=== PATIENT | male | born 1945 | race Caucasian/White ===

== ENCOUNTER 2017-07-30 14:33 | Emergency (ER) | payer MEDICARE, OTHER ==
[2017-07-30] MEDS ORDERED: ASPIRIN 81 MG TABLET, CHEWABLE PO ONE (14:46)
[2017-07-30 15:26] LABS: ABSOLUTE EOSINOPHILS # (AUTO) 0.2 10^3/uL (0.0-0.6); ABSOLUTE LYMPHOCYTES (AUTO) 2.6 10^3/uL (0.5-4.7); ABSOLUTE MONOCYTES (AUTO) 0.7 10^3/uL (0.1-1.4); ABSOLUTE NEUT (AUTO) 6.5 10^3/uL (1.7-8.2); BASOPHILS % (AUTO) 0.3 % (0-2); EOSINOPHILS % (AUTO) 1.7 % (0-6); HEMATOCRIT 51.1 % (37.9-51.0); HEMOGLOBIN 17.1 g/dL (13.5-17.0); LYMPHOCYTES % (AUTO) 26.3 % (13-45); MEAN CORPUSCULAR HEMOGLOBIN 30.6 pg (27.0-33.4); MEAN CORPUSCULAR HGB CONC 33.4 g/dL (32.0-36.0); MEAN CORPUSCULAR VOLUME 92 fl (80-97); MONOCYTES % (AUTO) 7.1 % (3-13); PLATELET COUNT 352 10^3/uL (150-450); RED BLOOD COUNT 5.59 10^6/uL (4.35-5.55); RED CELL DISTRIBUTION WIDTH 14.8 % (11.5-14.0); SEGMENTED NEUTROPHILS % (AUTO) 64.6 % (42-78); TOTAL CELLS COUNTED % (AUTO) 100 %; WHITE BLOOD COUNT 10.1 10^3/uL (4.0-10.5)
--- NOTE | 2017-07-30 15:36 | RADIOLOGY REPORT (SQ) ---
EXAM DESCRIPTION: CHEST SINGLE VIEW COMPLETED DATE/TIME: 07/30/2017 3:14 pm REASON FOR STUDY: cp COMPARISON: May 2015 EXAM PARAMETERS: NUMBER OF VIEWS: One view. TECHNIQUE: Single frontal radiographic view of the chest acquired. RADIATION DOSE: NA LIMITATIONS: None. FINDINGS: LUNGS AND PLEURA: No opacities, masses or pneumothorax. No pleural effusion. MEDIASTINUM AND HILAR STRUCTURES: No masses. Contour normal. HEART AND VASCULAR STRUCTURES: Heart normal in size. Normal vasculature. BONES: No acute findings. HARDWARE: None in the chest. OTHER: No other significant finding. IMPRESSION: NO ACUTE RADIOGRAPHIC FINDING IN THE CHEST. TECHNICAL DOCUMENTATION: JOB ID: [id number] [employer]- All Rights Reserved
[2017-07-30 15:40] LABS: ALANINE AMINOTRANSFERASE 25 U/L (21-72); ALBUMIN 4.5 g/dL (3.5-5.0); ALKALINE PHOSPHATASE 121 U/L (38-126); ASPARTATE AMINO TRANSFERASE 25 U/L (17-59); BILIRUBIN,DIRECT 0.3 mg/dL (0.0-0.4); BILIRUBIN,TOTAL 0.5 mg/dL (0.2-1.3); BLOOD UREA NITROGEN 18 mg/dL (7-20); CALCIUM 9.6 mg/dL (8.4-10.2); CARBON DIOXIDE 22 mmol/L (22-30); CREATINE KINASE 75 U/L (55-170); GLUCOSE 69 mg/dL (75-110); POTASSIUM 4.3 mmol/L (3.6-5.0); TOTAL PROTEIN 7.2 g/dL (6.3-8.2)
--- NOTE | 2017-07-30 15:47 | ER Document Report ---
ED General - General Chief Complaint: Chest Pain Stated Complaint: CHEST PAIN Time Seen by Provider: 07/30/17 15:46 Notes: 71-year-old male past medical history alcohol abuse and coronary disease here with complaints of lower midsternal chest pain constant worse with torso movement and sitting upright ongoing for the past 2 days. He states he has had "a little bit of shortness of breath with it". Denies nausea vomiting lightheadedness diaphoresis. Has a prior history of cardiac stent placement in [facility]. He denies any trauma to the chest. TRAVEL OUTSIDE OF THE [place] IN LAST 30 DAYS: No - Related Data Allergies/Adverse Reactions: No Known Allergies Allergy (Verified 04/17/15 17:10) Past Medical History - Social History Smoking Status: Former Smoker Frequency of alcohol use: Heavy Drug Abuse: None Family History: Reviewed & Not Pertinent Patient has suicidal ideation: No Patient has homicidal ideation: No - Past Medical History Cardiac Medical History: Reports: Hx Atrial Fibrillation, Hx Congestive Heart Failure, Hx Coronary Artery Disease, Hx Heart Attack, Hx Hypertension Pulmonary Medical History: Reports: Hx COPD Endocrine Medical History: Reports: Hx Diabetes Mellitus Type 2 Renal/ Medical History: Denies: Hx Peritoneal Dialysis Psychiatric Medical History: Reports: Hx Depression, Hx Post Traumatic Stress Disorder Past Surgical History: Reports: Hx Cardiac Catheterization - stents, Hx Coronary Stent, Hx Orthopedic Surgery, Hx Pacemaker - event monitor w/ defibrillator - Immunizations Hx Diphtheria, Pertussis, Tetanus Vaccination: Yes Review of Systems - Review of Systems Notes: See history of present illness for pertinent positive review of systems; otherwise all review of systems have been reviewed and are negative Physical Exam - Vital signs Vitals: Resp Pulse Ox 18 95 07/30/17 14:58 07/30/17 14:58 - Notes Notes: PHYSICAL EXAMINATION: GENERAL: Well-appearing and in no acute distress. HEAD: Atraumatic, normocephalic. EYES: Pupils equal round and reactive to light, extraocular movements intact, sclera anicteric, conjunctiva are normal. ENT: nares patent, oropharynx clear without exudates. Moist mucous membranes. NECK: Normal range of motion, supple without lymphadenopathy LUNGS: CTAB and equal. No wheezes rales or rhonchi. HEART: Regular rate (92-97) and rhythm without murmurs; reproducible moderate tenderness to palpation of the right inferior parasternal border with light palpation (patient states that this is the pain he has been having past 2 days) ABDOMEN: Soft, no tenderness. No guarding, no rebound EXTREMITIES: Normal range of motion, no pitting edema. No cyanosis. NEUROLOGICAL: Cranial nerves grossly intact. Normal sensory/motor exams. PSYCH: Normal mood, normal affect. SKIN: Warm, Dry, normal turgor, no rashes or lesions noted Course - Re-evaluation Re-evalutation: 07/30/17 15:46 EKG my interpretation rate tachycardic rhythm reg No appreciable ST elevation or depression Normal AK QRS QT No prior EKG available 07/30/17 16:04 MEDICAL DECISION MAKING: Concern for costochondritis versus pneumothorax Lower likelihood and clinical suspicion for ACS/PE given history and exam Will obtain workup and go from there Since his pain has been constant for the past 2 days, single troponin should be sufficient Patient understands and agrees to the plan of care 07/30/17 16:50 Results reviewed there is no leukocytosis troponin is negative after 2 days of pain Chest x-ray no acute emergent findings Patient states his pain has significantly improved after ketorolac We will send him home with prescription for Pepcid and meloxicam I feel this is likely musculoskeletal; HR 88 O2 95% Instructed follow-up PCP next day or few and he understands agrees plan of care - Vital Signs Vital signs: Temp Pulse Resp BP Pulse Ox 16 122/79 95 07/30/17 15:00 07/30/17 15:00 07/30/17 15:00 - Laboratory Result Diagrams: 07/30/17 15:05 07/30/17 15:05 Laboratory results interpreted by me: 07/30/17 07/30/17 15:05 15:05 RBC 5.59 H Hgb 17.1 H Hct 51.1 H RDW 14.8 H Sodium 145.6 H Anion Gap 23 H Glucose 69 L Discharge - Discharge Clinical Impression: Chest wall pain Condition: Good Disposition: HOME, SELF-CARE Additional Instructions: Your heart test was negative. Use the prescribed medication as needed for pain. The Pepcid is for ulcers and stomach acid. You were seen in the emergency department at [facility]. If you were given any sedating medications, be sure not to operate heavy machinery (example - driving ) and be sure you are not too sedated to walk appropriately. Please followup with your primary physician in the next few days for further management/ evaluation. Please return to the emergency department for worsening of symptoms or any symptom that you deem to be concerning or life-threatening. Thank you for allowing us to be part of your care. Prescriptions: Famotidine [Pepcid 20 mg Tablet] 20 mg PO DAILY #12 tablet Meloxicam [Mobic] 15 mg PO DAILY #7 tablet
[2017-07-30 15:50] LABS: CHLORIDE 101 mmol/L (98-107); SODIUM 145.6 mmol/L (137-145)
[2017-07-30 15:54] LABS: ANION GAP 23 (5-19)
[2017-07-30 16:02] LABS: CREATINE KINASE MB 1.04 ng/mL (<4.55)
[2017-07-30] MEDS ORDERED: KETOROLAC TROMETHAMINE INJ/PF 30 MG/1 ML SDV IV ONE (16:02)
[2017-07-30 16:04] LABS: TROPONIN I < 0.012 ng/mL
[2017-07-30 17:06] VITALS: BP 125/74
--- NOTE | 2017-07-30 19:09 | EKG REPORT ---
SEVERITY:- BORDERLINE ECG - SINUS TACHYCARDIA BORDERLINE LEFT AXIS DEVIATION BORDERLINE PROLONGED QT INTERVAL : Confirmed by: Estuardo Riddle MD 30-Jul-2017 19:07:59
== END 2017-07-30 17:06 | disposition home or self-care (01) ==
LOC: ER 14:33
DX: R07.89 Other chest pain (principal); I48.91 Unspecified atrial fibrillation; I50.9 Heart failure, unspecified; I11.0 Hypertensive heart disease with heart failure; E11.9 Type 2 diabetes mellitus without complications; Z87.891 Personal history of nicotine dependence; Z95.810 Presence of automatic (implantable) cardiac defibrillator
CPT/HCPCS: 93005; 99285; 96374; 36415; 82553; 82550; 85025; 80053; 84484; 71045; 93010; J1885

== ENCOUNTER 2017-10-15 11:42 | Day surgery (SDC) | payer MEDICARE, OTHER ==
[~2017-10-15 11:42] MED LIST: CHONDR SU A NA/HYALUR INTRAOC KIT (SURGICARE) ONE; EPINEPHRINE INJ/PF 1 MG/1 ML AMPULE ONE; KETOROLAC TROMETHAMINE 0.45% 4 DROP/0.4 ML DROPERETTE OS PRN; LIDOCAINE 1% INJ-PF (10 MG/ML) 30 ML SDV ONE
[2017-10-15] MEDS: TETRACAINE HCL 0.5% OPH SOLN 2 ML OS PRN ×3 (12:05→12:47)
[2017-10-15] MEDS: TROPICAMIDE 1% OPH SOLN 3 ML OS PRN ×3 (12:06→12:25)
[2017-10-15] MEDS: CYCLOPENTOLATE 0.2%/PHENYLEPHRINE 1% OPH SOLN 2 ML OS PRN ×3 (12:06→12:25)
[2017-10-15] MEDS: BESIFLOXACIN HCL 0.6% OPH SUSP 5 ML BOTTLE OS PRN ×4 (12:07→13:11)
[2017-10-15] MEDS ORDERED: MIDAZOLAM 2 MG/2 ML INJ ONE (12:17)
--- NOTE | 2017-10-15 22:09 | [facility] OPERATIVE REPORT E ---
[facility] Operative Report NAME: VANGIE MENDOZA AGE: 72Y DATE OF SURGERY: 10/15/2017 ROOM: PREOPERATIVE DIAGNOSIS: CATARACT, LEFT EYE. POSTOPERATIVE DIAGNOSIS: CATARACT, LEFT EYE. OPERATION: Cataract extraction with ReSTOR toric intraocular lens implant of the left eye. SURGEON: SORAIDA TAVAREZ M.D. ANESTHESIA: Topical. PROCEDURE: After obtaining appropriate consent, the patient's left eye was prepped and draped in sterile fashion as well as the surgeon in a sterile manner and cataract surgery was started. First a paracentesis blade was used to make a small side-port incision. Viscoelastic was used to inflate the anterior chamber. Next a 2.4 mm incision was made with the paracentesis blade. A continuous capsulorrhexis incision was made using a cystotome and Utrata forceps. Following this hydrodissection was carried out to make the lens fully loose and mobile and it was rotated 90 degrees. Following this, a mjxfxq-icv-jslxrlx technique was used to phacoemulsify the lens with a CDE of 11.51. The remaining cortex was removed with irrigation/aspiration. Provisc was instilled into the capsular bag to inflate the bag. A SND1T3, 20.0 diopter lens, rotated to 165 degrees, was placed. The remaining viscoelastic material was removed with irrigation/aspiration. Following this, a 10-0 nylon suture was used to close the incision and it was found to be watertight. Vigamox was instilled in the eye and a protective shield was placed over the eye. The patient returned to the postoperative recovery in stable condition. DICTATING PHYSICIAN: SORAIDA TAVAREZ M.D. [id number] PHY#: [id number] ID: [id number] JOB#: [id number] ACCT: [id number] cc:SORAIDA TAVAREZ M.D. >
--- NOTE | 2017-10-15 22:09 | DISCHARGE SUMMARY E ---
Discharge Summary NAME: VANGIE MENDOZA : 1945 AGE: 72Y ADMITTED: 10/15/2017 DISCHARGED: 10/15/2017 HOSPITAL COURSE: This is a 72-year-old patient who underwent cataract extraction of the left eye with insertion of a ReSTOR toric IOL. DIAGNOSIS: Cataract, left eye. Patient underwent surgery because they were having difficulty reading road signs. DISCHARGE INSTRUCTIONS: He is to be on a regular diet. No bending at the waist, no heavy lifting. He should use his Besivance, Ilevro, and Durezol at 3 p.m. and 8 p.m. and sleep with a rigid shield. I will see him for a 1 day postoperative tomorrow. DICTATING PHYSICIAN: SORAIDA TAVAREZ M.D. [id number] PHY#: [id number] ID: [id number] JOB#: [id number] ACCT: [id number] cc:SORAIDA TAVAREZ M.D. >
== END 2017-10-15 14:00 | disposition home or self-care (01) ==
LOC: SC 11:42
PROVIDERS: ATTEND Internal Medicine
PROC: 08RK3JZ Replacement of Left Lens with Synthetic Substitute, Percutaneous Approach (ICD-10-PCS; principal; 2017-10-15 13:00)
DX: H25.813 Combined forms of age-related cataract, bilateral (principal); H57.03 Miosis; H40.013 Open angle with borderline findings, low risk, bilateral; H02.052 Trichiasis without entropion right lower eyelid; E11.9 Type 2 diabetes mellitus without complications; I10 Essential (primary) hypertension; E78.00 Pure hypercholesterolemia, unspecified; I48.91 Unspecified atrial fibrillation; K21.9 Gastro-esophageal reflux disease without esophagitis; M19.90 Unspecified osteoarthritis, unspecified site; Z87.891 Personal history of nicotine dependence; Z79.51 Long term (current) use of inhaled steroids; Z79.82 Long term (current) use of aspirin; Z79.899 Other long term (current) drug therapy; Z79.01 Long term (current) use of anticoagulants; Z79.84 Long term (current) use of oral hypoglycemic drugs
CPT/HCPCS: 66984; 82962; V2788; J2250; J3490 ×2; A9270; J0171; 142

== ENCOUNTER 2017-11-05 07:36 | Day surgery (SDC) | payer MEDICARE, OTHER ==
[~2017-11-05 07:36] MED LIST changes: -CHONDR SU A NA/HYALUR INTRAOC KIT (SURGICARE) ONE; -EPINEPHRINE INJ/PF 1 MG/1 ML AMPULE ONE; +KETOROLAC TROMETHAMINE 0.45% 4 DROP/0.4 ML DROPERETTE OD PRN; -KETOROLAC TROMETHAMINE 0.45% 4 DROP/0.4 ML DROPERETTE OS PRN; -LIDOCAINE 1% INJ-PF (10 MG/ML) 30 ML SDV ONE
[2017-11-05] MEDS: TROPICAMIDE 1% OPH SOLN 3 ML OD PRN ×3 (08:10→08:38)
[2017-11-05] MEDS: CYCLOPENTOLATE 0.2%/PHENYLEPHRINE 1% OPH SOLN 2 ML OD PRN ×3 (08:10→08:38)
[2017-11-05] MEDS: BESIFLOXACIN HCL 0.6% OPH SUSP 5 ML BOTTLE OD PRN ×4 (08:11→09:13)
[2017-11-05] MEDS: TETRACAINE HCL 0.5% OPH SOLN 2 ML OD PRN ×3 (08:12→08:43)
[2017-11-05] MEDS ORDERED: MIDAZOLAM 2 MG/2 ML INJ ONE (08:22)
[2017-11-05] MEDS ORDERED: FENTANYL CITRATE INJ/PF 100 MCG/2 ML AMPUL ONE (08:22)
[2017-11-05] MEDS: CHONDR SU A NA/HYALUR INTRAOC KIT (SURGICARE) ONE ×2 (08:58)
[2017-11-05] MEDS: LIDOCAINE 1% INJ-PF (10 MG/ML) 30 ML SDV ONE ×2 (08:58)
[2017-11-05] MEDS: EPINEPHRINE INJ/PF 1 MG/1 ML AMPULE ONE ×2 (08:58)
--- NOTE | 2017-11-05 19:20 | [facility] OPERATIVE REPORT E ---
[facility] Operative Report NAME: VANGIE MENDOZA AGE: 72Y DATE OF SURGERY: 11/05/2017 ROOM: PREOPERATIVE DIAGNOSIS: CATARACT, RIGHT EYE. POSTOPERATIVE DIAGNOSIS: CATARACT, RIGHT EYE. OPERATION: Cataract extraction with ReSTOR Toric IOL implant of the right eye. SURGEON: SORAIDA TAVAREZ M.D. ANESTHESIA: Topical. PROCEDURE: After obtaining appropriate consent, the patient's right eye was prepped and draped in sterile fashion as well as the surgeon in a sterile manner and cataract surgery was started. First a paracentesis blade was used to make a small side-port incision. Viscoelastic was used to inflate the anterior chamber. Next a 2.4 mm incision was made with the paracentesis blade. A continuous capsulorrhexis incision was made using a cystotome and Utrata forceps. Following this hydrodissection was carried out to make the lens fully loose and mobile and it was rotated 90 degrees. Following this, a jzsokj-gbr-ixjaiyg technique was used to phacoemulsify the lens with a CDE of 10.39. The remaining cortex was removed with irrigation/aspiration. Provisc was instilled into the capsular bag to inflate the bag. A SND1T3, 19.5 diopter lens rotated to 37 degrees was placed. The remaining viscoelastic material was removed with irrigation/aspiration. Following this, a 10-0 nylon suture was used to close the incision and it was found to be watertight. Vigamox was instilled in the eye and a protective shield was placed over the eye. The patient returned to the postoperative recovery in stable condition. DICTATING PHYSICIAN: SORAIDA TAVAREZ M.D. 1950M [id number] PHY#: [id number] ID: [id number] JOB#: [id number] ACCT: [id number] cc:SORAIDA TAVAREZ M.D. >
--- NOTE | 2017-11-05 20:00 | [facility] DISCHARGE SUMMARY E ---
[facility] Discharge Summary NAME: VANGIE MENDOZA AGE: 72Y ADMITTED: 11/05/2017 DISCHARGED: 11/05/2017 This is a 72-year-old male who underwent cataract extraction of the right eye with insertion of the ReSTOR Toric IOL. INDICATIONS: The patient underwent surgery because he was having trouble seeing road signs and words on a television. DIAGNOSIS: Cataract, right eye. DISCHARGE INSTRUCTIONS: He is to be on a regular diet. No bending at his waist, no heavy lifting. He is to use Besivance, Ilevro, and Durezol at 3:00 p.m. and 8:00 p.m., and sleep with a rigid shield, and I will see him for his 1 day postoperative tomorrow. DICTATING PHYSICIAN: SORAIDA TAVAREZ M.D. 1950M [id number] PHY#: [id number] ID: [id number] JOB#: [id number] ACCT: [id number] cc:SORAIDA TAVAREZ M.D. >
== END 2017-11-05 10:00 | disposition home or self-care (01) ==
LOC: SC 07:36
PROVIDERS: ATTEND Internal Medicine
PROC: 08RJ3JZ Replacement of Right Lens with Synthetic Substitute, Percutaneous Approach (ICD-10-PCS; principal; 2017-11-05 09:00)
DX: H25.811 Combined forms of age-related cataract, right eye (principal); H57.03 Miosis; Z96.1 Presence of intraocular lens; I10 Essential (primary) hypertension; E11.9 Type 2 diabetes mellitus without complications; J45.909 Unspecified asthma, uncomplicated; Z87.891 Personal history of nicotine dependence
CPT/HCPCS: 66984; 82962; V2788; J2250; J3490 ×2; A9270; J0171; J3010; 142

== ENCOUNTER 2018-01-22 19:48 | Emergency (ER) | payer MEDICARE, OTHER ==
[2018-01-22 20:18] VITALS: BP 102/69
[2018-01-22] MEDS ORDERED: HYDROMORPHONE HCL INJ/PF 2 MG/ML AMPULE IM ONE ×2 (20:21→21:32)
--- NOTE | 2018-01-22 20:23 | ER Document Report ---
ED General - General Chief Complaint: Pain All Over Stated Complaint: BODY PAIN Time Seen by Provider: 01/22/18 19:50 Mode of Arrival: Medic Information source: Patient Notes: 72-year-old male presents with complaints of generalized body aches. Patient notes these pains have been going on for years is being seen by pain management and orthopedic surgeons. Patient states the pains are located in his right shoulder left shoulder knees epigastric region ankles left hand. Patient denies any fevers or chills denies any new trauma states no doctors listen to him about his pain TRAVEL OUTSIDE OF THE [place] IN LAST 30 DAYS: No - HPI Onset: Other Onset/Duration: Persistent Quality of pain: Achy Severity: Moderate Pain Level: 3 Associated symptoms: Body/muscle aches Exacerbated by: Movement Relieved by: Denies Similar symptoms previously: Yes Recently seen / treated by doctor: Yes - Related Data Allergies/Adverse Reactions: Penicillins Allergy (Verified 01/22/18 20:43) Past Medical History - Social History Smoking Status: Never Smoker Cigarette use (# per day): No Chew tobacco use (# tins/day): No Smoking Education Provided: No Frequency of alcohol use: Heavy Family History: Reviewed & Not Pertinent - Past Medical History Cardiac Medical History: Reports: Hx Atrial Fibrillation, Hx Congestive Heart Failure, Hx Coronary Artery Disease, Hx Hypertension - MEDS Denies: Hx Heart Attack Pulmonary Medical History: Reports: Hx COPD Denies: Hx Asthma Neurological Medical History: Denies: Hx Cerebrovascular Accident, Hx Seizures Endocrine Medical History: Reports: Hx Diabetes Mellitus Type 2 Renal/ Medical History: Denies: Hx Peritoneal Dialysis GI Medical History: Denies: Hx Hepatitis, Hx Hiatal Hernia, Hx Ulcer Psychiatric Medical History: Reports: Hx Depression, Hx Post Traumatic Stress Disorder Infectious Medical History: Denies: Hx Hepatitis Past Surgical History: Reports: Hx Cardiac Catheterization - stents, Hx Coronary Stent, Hx Orthopedic Surgery. Denies: Hx Open Heart Surgery - STENT LATE , Hx Pacemaker - Immunizations Hx Diphtheria, Pertussis, Tetanus Vaccination: Yes Review of Systems - Review of Systems Notes: REVIEW OF SYSTEMS: CONSTITUTIONAL : Denies fever, chills, or sweats. Denies recent illness. EENT: Denies eye, ear, throat, or mouth pain or symptoms. Denies nasal or sinus congestion or discharge. Denies throat, tongue, or mouth swelling or difficulty swallowing. CARDIOVASCULAR: Denies chest pain. Denies palpitations or racing or irregular heart beat. Denies ankle edema. RESPIRATORY: Denies cough, cold, or chest congestion. Denies shortness of breath, difficulty breathing, or wheezing. GASTROINTESTINAL: Denies abdominal pain or distention. Denies nausea, vomiting , or diarrhea. Denies blood in vomitus, stools, or per rectum. Denies black, tarry stools. Denies constipation. GENITOURINARY: Denies difficulty urinating, painful urination, burning, frequency, blood in urine, or discharge. MUSCULOSKELETAL: Admits to generalized body aches SKIN: Denies rash, lesions or sores. HEMATOLOGIC : Denies easy bruising or bleeding. LYMPHATIC: Denies swollen, enlarged glands. NEUROLOGICAL: Denies confusion or altered mental status. Denies passing out or loss of consciousness. Denies dizziness or lightheadedness. Denies headache. Denies weakness or paralysis or loss of use of either side. Denies problems with gait or speech. Denies sensory loss, numbness, or tingling. Denies seizures. PSYCHIATRIC: Denies anxiety or stress. Denies depression, suicidal ideation, or homicidal ideation. ALL OTHER SYSTEMS REVIEWED AND NEGATIVE. Dictation was performed using [employer] voice recognition software PHYSICAL EXAMINATION: GENERAL: Well-appearing, well-nourished and in no acute distress. HEAD: Atraumatic, normocephalic. EYES: Pupils equal round and reactive to light, extraocular movements intact, sclera anicteric, conjunctiva are normal. ENT: Nares patent, oropharynx clear without exudates. Moist mucous membranes. NECK: Normal range of motion, supple without lymphadenopathy LUNGS: Breath sounds clear to auscultation bilaterally and equal. No wheezes rales or rhonchi. HEART: Regular rate and rhythm without murmurs ABDOMEN: Soft, nontender, nondistended abdomen. No guarding, no rebound. No masses appreciated. Musculoskeletal: Pain with range of motion of the upper extremities NEUROLOGICAL: Cranial nerves grossly intact. Normal speech, normal gait. Normal sensory, motor exams PSYCH: Normal mood, normal affect. SKIN: Warm, Dry, normal turgor, no rashes or lesions noted. 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 I have reevaluated this patient multiple times and no significant life threatening changes are noted. The patient and I have discussed the diagnosis and risks, and we agree with discharging home and close follow-up. We also discussed returning to the Emergency Department immediately if new or worsening symptoms occur with the understanding that symptoms and presentations can change. We have discussed the symptoms which are most concerning (e.g., saddle anesthesia, urinary or bowel incontinence or retention, changing or worsening pain) that necessitate immediate return. - Vital Signs Vital signs: Temp Pulse Resp BP Pulse Ox 98.2 F 27 H 102/69 96 01/22/18 19:59 01/22/18 20:01 01/22/18 20:00 01/22/18 20:01 Discharge - Discharge Clinical Impression: acute on chronic pain Condition: Stable Disposition: HOME, SELF-CARE Instructions: Pain Management Additional Instructions: Follow up with your physician tomorrow for further care or return to the ED IMMEDIATELY if symptoms worsen or new concerns occur. If you cannot afford to follow up with your primary care physician a list of low cost clinics have been provided at the end of your discharge papers as well.
== END 2018-01-22 22:15 | disposition home or self-care (01) ==
LOC: ER 19:48
DX: G89.29 Other chronic pain (principal); M25.511 Pain in right shoulder; M25.512 Pain in left shoulder; M25.569 Pain in unspecified knee; R10.13 Epigastric pain; M25.579 Pain in unspecified ankle and joints of unspecified foot; M79.642 Pain in left hand; Z88.0 Allergy status to penicillin; I25.10 Atherosclerotic heart disease of native coronary artery without angina pectoris; I10 Essential (primary) hypertension; J44.9 Chronic obstructive pulmonary disease, unspecified; E11.9 Type 2 diabetes mellitus without complications; Z95.5 Presence of coronary angioplasty implant and graft
CPT/HCPCS: 99283; 96372; J1170

== ENCOUNTER → 2018-01-27 | Outpatient (CLI) | payer MEDICARE, OTHER ==
[2018-01-27 15:34] LABS: ABSOLUTE EOSINOPHILS # (AUTO) 0.3 10^3/uL (0.0-0.6); ABSOLUTE LYMPHOCYTES (AUTO) 0.7 10^3/uL (0.5-4.7); ABSOLUTE MONOCYTES (AUTO) 0.5 10^3/uL (0.1-1.4); ABSOLUTE NEUT (AUTO) 6.6 10^3/uL (1.7-8.2); BASOPHILS % (AUTO) 0.2 % (0-2); EOSINOPHILS % (AUTO) 4.3 % (0-6); HEMATOCRIT 42.5 % (37.9-51.0); HEMOGLOBIN 14.6 g/dL (13.5-17.0); LYMPHOCYTES % (AUTO) 8.1 % (13-45); MEAN CORPUSCULAR HEMOGLOBIN 31.5 pg (27.0-33.4); MEAN CORPUSCULAR HGB CONC 34.3 g/dL (32.0-36.0); MEAN CORPUSCULAR VOLUME 92 fl (80-97); MONOCYTES % (AUTO) 6.2 % (3-13); PLATELET COUNT 246 10^3/uL (150-450); RED BLOOD COUNT 4.62 10^6/uL (4.35-5.55); RED CELL DISTRIBUTION WIDTH 15.5 % (11.5-14.0); SEGMENTED NEUTROPHILS % (AUTO) 81.2 % (42-78); TOTAL CELLS COUNTED % (AUTO) 100 %; WHITE BLOOD COUNT 8.1 10^3/uL (4.0-10.5)
[2018-01-27 15:55] LABS: ALANINE AMINOTRANSFERASE 26 U/L (21-72); ALBUMIN 3.7 g/dL (3.5-5.0); ALKALINE PHOSPHATASE 107 U/L (38-126); ANION GAP 11 (5-19); ASPARTATE AMINO TRANSFERASE 23 U/L (17-59); BILIRUBIN,DIRECT 0.4 mg/dL (0.0-0.4); BILIRUBIN,TOTAL 0.4 mg/dL (0.2-1.3); BLOOD UREA NITROGEN 13 mg/dL (7-20); C-REACTIVE PROTEIN 20.7 mg/L (<10.0); CALCIUM 8.9 mg/dL (8.4-10.2); CARBON DIOXIDE 26 mmol/L (22-30); CHLORIDE 103 mmol/L (98-107); GLUCOSE 107 mg/dL (75-110); POTASSIUM 4.1 mmol/L (3.6-5.0); SODIUM 139.7 mmol/L (137-145); TOTAL PROTEIN 6.3 g/dL (6.3-8.2); URIC ACID 4.9 mg/dL (3.5-8.5)
[2018-01-27 16:12] LABS: ERYTHROCYTE SEDIMENTATION RATE 12 mm/hr (0-20)
== END ==
LOC: OD 14:03
PROVIDERS: ATTEND Physician Assistant
DX: M25.512 Pain in left shoulder (principal)
CPT/HCPCS: 36415; 80053; 84550; 85025; 85652; 86038; 86140; 86430

== ENCOUNTER → 2018-02-04 | Outpatient (CLI) | payer MEDICARE, OTHER ==
--- NOTE | 2018-02-05 09:29 | RADIOLOGY REPORT (SQ) ---
EXAM DESCRIPTION: MRI LT UPPER JOINT WITHOUT COMPLETED DATE/TIME: 02/04/2018 5:28 pm REASON FOR STUDY: S53.492A OTHER SPRAIN OF LEFT ELBOW, INITIAL ENCOUNTER S53.492A OTHER SPRAIN OF L EFT ELBOW, INITIAL ENCOUNTER COMPARISON: None. TECHNIQUE: Left elbow images acquired and stored on PACS. Multiplanar images to include fat sensitiv e sequences as T1, fluid sensitive sequences as T2/STIR, cartilage sensitive sequences as FSPD, and g radient echo sequences. LIMITATIONS: Mild motion artifact. FINDINGS: BONE MARROW: No alteration of signal to suggest marrow replacement or edema. No occult fra cture. No large osteophytes. JOINT EFFUSION: Small effusion. No loose bodies detected. ARTICULAR SURFACES: Intact as assessed. No significant reactive bone changes. MEDIAL COLLATERAL LIGAMENT COMPLEX: Intact without edema or tear. MEDIAL EPICONDYLE AND COMMON FLEXOR TENDON: No tendinopathy. No partial or full-thickness tear. LATERAL COLLATERAL LIGAMENT: Slightly thickened minimally hyperintense T2 appearance. This is not fl uid signal intensity, doubt significant tear. LATERAL EPICONDYLE AND COMMON EXTENSOR TENDON: No tendinopathy. No partial or full-thickness tear. LATERAL ULNAR COLLATERAL LIGAMENT: Intact without evidence for tear. BICEPS TENDON: Intact. No partial or full-thickness tendon tear. No muscle edema. TRICEPS TENDON: Intact. ULNAR NERVE: Well-visualized without edema or encroachment. ADJACENT SOFT TISSUES: No masses or edema. OTHER: No other significant finding. IMPRESSION: 1. Limited study. 2. Mild signal in the lateral collateral ligament suggesting sprain. No high-grade injury or huber tear detected. 3. Other ligaments and tendons intact. TECHNICAL DOCUMENTATION: JOB ID: [id number] [employer]- All Rights Reserved Reading location - IP/workstation name: [email or web address]
== END ==
LOC: RAD 18:20
PROVIDERS: ATTEND Physician Assistant
DX: S53.492A Other sprain of left elbow, initial encounter (principal); X58.XXXA Exposure to other specified factors, initial encounter; Y93.9 Activity, unspecified; Y92.9 Unspecified place or not applicable

== ENCOUNTER 2018-02-14 15:03 | Emergency (ER) | payer MEDICARE, OTHER ==
[2018-02-14] MEDS ORDERED: NORMAL SALINE 1000 ML 1,000 ML IV ONE (15:30)
--- NOTE | 2018-02-14 15:30 | ER Document Report ---
ED General - General Chief Complaint: Weakness Stated Complaint: WEAKNESS Time Seen by Provider: 02/14/18 15:12 TRAVEL OUTSIDE OF THE [place] IN LAST 30 DAYS: No - HPI Notes: Patient is a 72-year-old male with a history of chronic pain, hypertension, coronary artery disease with one stent placement 18 years ago, hypothyroidism, type 2 diabetes, ?lupus, history of alcohol abuse who presents to the ED complaining of generalized weakness since early January. Patient states that he is still eating and drinking without any difficulties. He is urinating normally and having normal bowel movements. Patient states that he has been being treated for UTI otherwise. Patient states that he had one beer today. Denies any other drug use. He has not had any loss of consciousness. Denies any injury. Denies any headache, fever, head injury, neck pain, changes in vision/speech/mentation/hearing, URI, sore throat, chest pain, palpitations, syncope, cough, shortness of breath, wheeze, dyspnea, abdominal pain, nausea/ vomiting/diarrhea, urinary retention, dysuria, hematuria, loss of control of bowel or bladder, numbness/tingling, saddle anesthesia, muscle paralysis, or rash. - Related Data Allergies/Adverse Reactions: Penicillins Allergy (Verified 02/14/18 15:11) Past Medical History - Social History Smoking Status: Current Every Day Smoker Frequency of alcohol use: Heavy Drug Abuse: None Family History: Reviewed & Not Pertinent Patient has suicidal ideation: No Patient has homicidal ideation: No - Past Medical History Cardiac Medical History: Reports: Hx Atrial Fibrillation, Hx Congestive Heart Failure, Hx Coronary Artery Disease, Hx Hypertension - MEDS Denies: Hx Heart Attack Pulmonary Medical History: Reports: Hx COPD Denies: Hx Asthma Neurological Medical History: Denies: Hx Cerebrovascular Accident, Hx Seizures Endocrine Medical History: Reports: Hx Diabetes Mellitus Type 2 Renal/ Medical History: Denies: Hx Peritoneal Dialysis GI Medical History: Denies: Hx Hepatitis, Hx Hiatal Hernia, Hx Ulcer Psychiatric Medical History: Reports: Hx Depression, Hx Post Traumatic Stress Disorder Infectious Medical History: Denies: Hx Hepatitis Past Surgical History: Reports: Hx Cardiac Catheterization - stents, Hx Coronary Stent, Hx Open Heart Surgery - STENT LATE , Hx Orthopedic Surgery. Denies: Hx Pacemaker - Immunizations Hx Diphtheria, Pertussis, Tetanus Vaccination: Yes Review of Systems - Review of Systems -: Yes All other systems reviewed and negative Physical Exam - Vital signs Vitals: Temp 98.3 F 02/14/18 15:05 - Notes Notes: PHYSICAL EXAMINATION: GENERAL: Well-appearing, well-nourished and in no acute distress. A&Ox4. Answers questions appropriately. odor of etoh. HEAD: Atraumatic, normocephalic. Non-tender. No schroeder sign EYES: Pupils equal round and reactive to light, extraocular movements intact, sclera anicteric, conjunctiva are normal. No nystagmus. ENT: EAC clear b/l. TM's intact b/l without erythema, fluid, or perforation. Nares patent and without discharge. oropharynx clear without exudates. No tonsilar hypertrophy or erythema. Moist mucous membranes. No sinus tenderness. NECK: Normal range of motion, supple without lymphadenopathy. No rigidity. No midline tenderness. LUNGS: Breath sounds clear to auscultation bilaterally and equal. No wheezes rales or rhonchi. HEART: Regular rate and rhythm without murmurs, rubs, gallops. ABDOMEN: Soft, nontender, nondistended abdomen. No guarding, no rebound. No masses appreciated. Normal bowel sounds present. No CVA tenderness bilaterally. Musculoskeletal: Ext b/l: FROM to passive/active. Strength 5+/5. No deficits noted. No bony tenderness of extremities. Back: FROM to passive/active. Strength 5+/5. No vertebral point tenderness, stepoffs, or deformities. Extremities: No cyanosis, clubbing, or edema b/l. Peripheral pulses 2+. Capillary refill less than 2 seconds. NEUROLOGICAL: NIH 0. GCS 15. Cranial nerves grossly intact. Normal speech, normal gait. Normal sensory, motor exams. Reflexes 2+ b/l. TIMBO's negative. Pronator drift negative. Heel/dugan, finger/nose wnl. PSYCH: Normal mood, normal affect. SKIN: Warm, Dry, normal turgor, no rashes or lesions noted. Course - Re-evaluation Re-evalutation: 02/14/18 17:02 Patient is an afebrile, well-hydrated 72-year-old male who presents to the ED with weakness, unspecified. Vitals are acceptable without any significant tachycardia, tachypnea, or hypoxia. PE is otherwise unremarkable for any focal neurological deficits. Lungs are clear b/l, abd soft and non-tender. Patient is nontoxic-appearing and is tolerating p.o. without any difficulties. Pt is feeling a little better after fluids. His symptoms have been ongoing for the last month and he did have comprehensive blood work performed January 29 including a rheumatoid panel, testosterone, hepatitis panel, vitamins, thyroid, and PSA testing. Testosterone was the only thing that was borderline low aside from [place]. CBC, CMP, EKG/cardiac enzymes, TSH, UA, urine drug screen, etoh are all unremarkable for any acute pathology aside from minimal etoh noted and marijuana in the system. Patient does not have any chest pain, dyspnea, or shortness of breath. Patient's presentation and symptomatology creates low suspicion for ACS, PE, pneumothorax, pericarditis, dissection, respiratory compromise, severe dehydration, sepsis, meningitis, acute intracranial pathology , or other systemic emergent condition at this time. Patient is aware that his condition can change from initial presentation and he needs to monitor symptoms closely and seek medical attention for any acute changes. Pt's daughter is accompanying him today. Recommend conservative measures for symptoms. Recheck with your PCM in 2-3 days. Return to the ED with any worsening/concerning symptoms otherwise as reviewed in discharge. Patient is in agreement. - Vital Signs Vital signs: Temp Pulse Resp BP Pulse Ox 98.3 F 23 H 109/61 94 02/14/18 15:05 02/14/18 17:01 02/14/18 17:01 02/14/18 17:01 - Laboratory Result Diagrams: 02/14/18 15:10 02/14/18 15:10 Laboratory results interpreted by me: 02/14/18 02/14/18 02/14/18 15:10 15:10 15:40 RDW 15.1 H Eosinophils % 6.9 H VBG pH 7.50 H VBG pCO2 30.1 L AST 14 L Creatine Kinase 46 L Total Protein 5.8 L Albumin 3.4 L Urine Urobilinogen Urine Ascorbic Acid 02/14/18 15:56 RDW Eosinophils % VBG pH VBG pCO2 AST Creatine Kinase Total Protein Albumin Urine Urobilinogen 2.0 H Urine Ascorbic Acid 40 H Discharge - Discharge Clinical Impression: Weakness Condition: Stable Disposition: HOME, SELF-CARE Additional Instructions: Maintain adequate fluid and food intake Take home medications as directed Low sodium/fat diet Exercise regularly Monitor blood pressure daily and keep a log Monitor symptoms for any acute changes Recheck with your PCM in 2-3 days Return to the ED with any worsening symptoms and/or development of fever, headache, chest pain, palpitations, syncope, shortness of breath, trouble breathing, abdominal pain, n/v/d, blood in stool/urine, loss of control of bowel /bladder, urinary retention, muscle weakness/paralysis, numbness/tingling, or other worsening symptoms that are concerning to you. Referrals: [facility] [Provider Group] - Follow up as needed [facility] [Provider Group] - Follow up as needed
[2018-02-14 15:34] LABS: INTERNATIONAL RATION (INR) 0.88; PROTHROMBIN TIME 12.4 SEC (11.4-15.4)
[2018-02-14 15:35] LABS: PARTIAL THROMBOPLASTIN TIME 30.7 SEC (23.5-35.8)
[2018-02-14 15:37] LABS: ABSOLUTE EOSINOPHILS # (AUTO) 0.4 10^3/uL (0.0-0.6); ABSOLUTE LYMPHOCYTES (AUTO) 1.2 10^3/uL (0.5-4.7); ABSOLUTE MONOCYTES (AUTO) 0.7 10^3/uL (0.1-1.4); ABSOLUTE NEUT (AUTO) 3.5 10^3/uL (1.7-8.2); BASOPHILS % (AUTO) 0.6 % (0-2); EOSINOPHILS % (AUTO) 6.9 % (0-6); HEMATOCRIT 43.7 % (37.9-51.0); HEMOGLOBIN 14.7 g/dL (13.5-17.0); LYMPHOCYTES % (AUTO) 20.3 % (13-45); MEAN CORPUSCULAR HEMOGLOBIN 30.7 pg (27.0-33.4); MEAN CORPUSCULAR HGB CONC 33.5 g/dL (32.0-36.0); MEAN CORPUSCULAR VOLUME 92 fl (80-97); MONOCYTES % (AUTO) 12.3 % (3-13); PLATELET COUNT 250 10^3/uL (150-450); RED BLOOD COUNT 4.78 10^6/uL (4.35-5.55); RED CELL DISTRIBUTION WIDTH 15.1 % (11.5-14.0); SEGMENTED NEUTROPHILS % (AUTO) 59.9 % (42-78); TOTAL CELLS COUNTED % (AUTO) 100 %; WHITE BLOOD COUNT 5.9 10^3/uL (4.0-10.5)
[2018-02-14 15:44] LABS: ALANINE AMINOTRANSFERASE 22 U/L (21-72); ALBUMIN 3.4 g/dL (3.5-5.0); ALCOHOL 16 mg/dL (NONE DETECTED); ALKALINE PHOSPHATASE 87 U/L (38-126); ANION GAP 13 (5-19); ASPARTATE AMINO TRANSFERASE 14 U/L (17-59); BILIRUBIN,DIRECT 0.2 mg/dL (0.0-0.4); BILIRUBIN,TOTAL 0.3 mg/dL (0.2-1.3); BLOOD UREA NITROGEN 13 mg/dL (7-20); CALCIUM 8.7 mg/dL (8.4-10.2); CARBON DIOXIDE 22 mmol/L (22-30); CHLORIDE 104 mmol/L (98-107); CREATINE KINASE 46 U/L (55-170); GLUCOSE 107 mg/dL (75-110); SODIUM 139.3 mmol/L (137-145); TOTAL PROTEIN 5.8 g/dL (6.3-8.2)
[2018-02-14 15:48] LABS: VENOUS BLOOD BASE EXCESS 0.5 mmol/L; VENOUS BLOOD HCO3 22.7 mmol/L (20-32); VENOUS BLOOD PCO2 30.1 mmHg (35-63); VENOUS BLOOD PH 7.5 (7.30-7.42)
--- NOTE | 2018-02-14 15:52 | RADIOLOGY REPORT (SQ) ---
EXAM DESCRIPTION: CHEST SINGLE VIEW COMPLETED DATE/TIME: 02/14/2018 3:45 pm REASON FOR STUDY: weak COMPARISON: 07/30/2017 EXAM PARAMETERS: NUMBER OF VIEWS: One view. TECHNIQUE: Single frontal radiographic view of the chest acquired. RADIATION DOSE: NA LIMITATIONS: None. FINDINGS: LUNGS AND PLEURA: No opacities, masses or pneumothorax. No pleural effusion. MEDIASTINUM AND HILAR STRUCTURES: No masses. Contour normal. HEART AND VASCULAR STRUCTURES: Heart normal in size. Normal vasculature. BONES: No acute findings. HARDWARE: None in the chest. OTHER: No other significant finding. IMPRESSION: NO ACUTE RADIOGRAPHIC FINDING IN THE CHEST. TECHNICAL DOCUMENTATION: JOB ID: [id number] [employer]- All Rights Reserved Reading location - IP/workstation name: [email or web address]
[2018-02-14 15:54] LABS: CREATINE KINASE MB 0.71 ng/mL (<4.55)
[2018-02-14 15:57] LABS: TROPONIN I < 0.012 ng/mL
[2018-02-14 16:13] LABS: APPEARANCE,URINE CLEAR; BILIRUBIN,URINE NEGATIVE (NEGATIVE); COLOR,URINE YELLOW; GLUCOSE, URINE NEGATIVE (NEGATIVE); KETONES,URINE NEGATIVE (NEGATIVE); LEUKOCYTE ESTERASE,URINE NEGATIVE (NEGATIVE); NITRITE,URINE NEGATIVE (NEGATIVE); PROTEIN,URINE NEGATIVE (NEGATIVE); URINE SPECIFIC GRAVITY 1.009
[2018-02-14 16:27] LABS: URINE AMPHETAMINES SCREEN NEGATIVE; URINE BARBITURATES SCREEN NEGATIVE; URINE BENZODIAZEPINES SCREEN NEGATIVE; URINE COCAINE SCREEN NEGATIVE; URINE MARIJUANA (THC) SCREEN UNCONFIRMED POSITIVE; URINE METHADONE SCREEN NEGATIVE; URINE PHENCYCLIDINE SCREEN NEGATIVE
[2018-02-14 17:32] VITALS: BP 109/71
--- NOTE | 2018-02-15 09:07 | EKG REPORT ---
SEVERITY:- OTHERWISE NORMAL ECG - SINUS RHYTHM BORDERLINE LEFT AXIS DEVIATION : Confirmed by: Khang Velásquez 15-Feb-2018 09:06:34
== END 2018-02-14 17:37 | disposition home or self-care (01) ==
LOC: ER 15:03
DX: R53.1 Weakness (principal); I25.10 Atherosclerotic heart disease of native coronary artery without angina pectoris; I10 Essential (primary) hypertension; E11.9 Type 2 diabetes mellitus without complications; N39.0 Urinary tract infection, site not specified; J44.9 Chronic obstructive pulmonary disease, unspecified; F17.200 Nicotine dependence, unspecified, uncomplicated; Z88.0 Allergy status to penicillin; Z95.5 Presence of coronary angioplasty implant and graft
CPT/HCPCS: 93005; 99285; 96360; 36415; 82553; 80307 ×2; 82550; 84443; 85025; 85610; 85730; 80053; 81001; 84484; 82803; 71045; 93010; J7030

== ENCOUNTER → 2018-02-21 | Outpatient (CLI) | payer MEDICARE, OTHER ==
--- NOTE | 2018-02-21 13:39 | RADIOLOGY REPORT (SQ) ---
EXAM DESCRIPTION: MRI HEAD COMBO COMPLETED DATE/TIME: 02/21/2018 9:08 am REASON FOR STUDY: HEREDITARY ATAXIA, UNSPECIFIED G11.9 HEREDITARY ATAXIA, UNSPECIFIED COMPARISON: CT brain 06/16/2015 TECHNIQUE: Multiplanar imaging includes noncontrasted T1, T2, FLAIR, diffusion with ADC map and post gadolinium contrast T1 sequences. Images stored on PACS. CONTRAST TYPE AND DOSE: 15 mL Prohance. RENAL FUNCTION: GFR > 60 LIMITATIONS: None. FINDINGS: ANATOMY: No developmental anomalies. Normal vascular flow voids. Pituitary fossa normal. CSF SPACES: Normal in size and contour. No hemorrhage. CEREBRUM: There is decreased cons acuity of the substantia nigra in the brainstem. This could correl ate with parkinsonism. No MR signal abnormalities worrisome for acute ischemic change, acute intracranial hemorrhage. No ma ss effect or midline shift. Age-appropriate spotty small vessel ischemic change in the bifrontal and biparietal white matter. No abnormal brain parenchymal enhancement on post contrasted images. POSTERIOR FOSSA: Minimal pontine chronic small vessel ischemic change. No hemorrhage. No edema, ministerio s, or mass effect. Internal auditory canals, cerebellopontine angles, mastoids normal. No enhancing l esions. No abnormal enhancement post contrast. DIFFUSION IMAGING: Negative for acute or subacute infarction. ORBITS: No masses. Globes normal. PARANASAL SINUSES: No fluid levels. Mucosa normal. OTHER: No other significant finding. IMPRESSION: Decreased visualization of the substantia nigra on the T2 weighted images through the br ainstem, could correlate with parkinsonism No abnormal brain parenchymal masses or enhancement. Age-appropriate minimal small vessel ischemic c hanges present. EVIDENCE OF ACUTE STROKE: NO. TECHNICAL DOCUMENTATION: JOB ID: [id number] [employer]- All Rights Reserved Reading location - IP/workstation name: [email or web address]
== END ==
LOC: RAD 08:00
PROVIDERS: ATTEND Internal Medicine
DX: G11.9 Hereditary ataxia, unspecified (principal); R26.89 Other abnormalities of gait and mobility; N52.9 Male erectile dysfunction, unspecified; R53.1 Weakness
CPT/HCPCS: 70553; A9576

== ENCOUNTER → 2018-03-08 | Outpatient (CLI) | payer MEDICARE, OTHER ==
--- NOTE | 2018-03-08 10:58 | RADIOLOGY REPORT (SQ) ---
EXAM DESCRIPTION: MRI RT LOWER EXTREMITY WITHOUT COMPLETED DATE/TIME: 03/08/2018 7:56 am REASON FOR STUDY: RIGHT FOOT PAIN (M79.671) M79.671 PAIN IN RIGHT FOOT COMPARISON: None. TECHNIQUE: T1-weighted, T2-weighted, and gradient echo noncontrast multiplanar imaging of the right foot. LIMITATIONS: Motion. Fat saturation artifact toes. FINDINGS: MARROW SIGNAL: No marrow signal alteration. No occult fracture. No evidence for osteo ne crosis. JOINT EFFUSION: No significant effusions. PLANTAR FASCIA: Normal as visualized. TARSOMETATARSAL AND TOE ARTICULATIONS: Anatomic. Mild degenerative changes first metatarsal phalange al joint. INTERMETATARSAL SPACES AND PLANTAR PLATES: Intact. No soft tissue mass to suggest a neuroma. SOFT TISSUES: Small amount of fluid in the flexor hallucis longus tendon sheath which can be a normal variant. OTHER: No other significant finding. IMPRESSION: No acute findings. TECHNICAL DOCUMENTATION: JOB ID: [id number] [employer]- All Rights Reserved Reading location - IP/workstation name: [email or web address]
== END ==
LOC: RAD 06:53
PROVIDERS: ATTEND Physician Assistant
DX: M79.671 Pain in right foot (principal)

== ENCOUNTER → 2018-05-08 | Outpatient (CLI) | payer MEDICARE, OTHER ==
--- NOTE | 2018-05-09 08:40 | RADIOLOGY REPORT (SQ) ---
EXAM DESCRIPTION: MRI LUMBAR SPINE WITHOUT COMPLETED DATE/TIME: 05/08/2018 1:11 pm REASON FOR STUDY: BALANCE PROBLEMS, NEUROGENIC CLAUDICATION R26.89 OTHER ABNORMALITIES OF GAIT AND MOBILITY M48.062 SPINAL STENOSIS, LUMBAR REGION WITH NEUROGENIC TONY COMPARISON: Lumbar spine films from 06/02/2015 TECHNIQUE: Sagittal and Axial imaging includes T1, T2, STIR and gradient echo sequences. Coronal T2/ HASTE imaging. LIMITATIONS: None. FINDINGS: VISUALIZED UPPER ABDOMEN: Limited evaluation. No acute or suspicious findings suggested. SEGMENTATION: No transitional anatomy. The lowest well-developed disc space is labeled L5-S1. ALIGNMENT: Minimal grade 1 anterolisthesis of L3 over L4. VERTEBRAE: Chronic 50% upper endplate compression at L1, unchanged from plain films in 2015 BONE MARROW: Normal. No marrow replacement or reactive changes. DISC SIGNAL: Diffuse decreased T2 weighted intervertebral disc signal. Significant disc space loss o f height at L4-5 and L5-S1 POSTERIOR ELEMENTS: Generally intact. No pars defect evident. HARDWARE: None in the spine. CORD AND CONUS: Normal in size and signal intensity. Conus at the L1 level. SOFT TISSUES: No aortic aneurysm seen. No bulky retroperitoneal adenopathy or mass. No paraspinal mas s or fluid. T11-12: At the upper edge of the field of view. Mild bilateral facet arthropathy is present without significant central or foraminal stenosis T12-L1: Mild bilateral facet arthropathy. No central or foraminal stenosis L1-L2: Mild posterior disc bulging, moderate bilateral facet and ligament hypertrophy. No central or foraminal stenosis. L2-L3: Mild central canal stenosis results from broad diffuse posterior disc bulge and bulky bilatera l facet and ligament hypertrophy best shown on axial T2 image 17. Mild bilateral inferior foraminal narrowing without exiting L2 nerve root impingement. L3-L4: Severe central canal stenosis results from mild grade 1 anterolisthesis of L3 over L4, broad d iffuse posterior disc bulge and bony spurring, and very bulky bilateral facet and ligament hypertroph y. This is best shown on sagittal T2 image 10 and axial T2 image 24. Elsewhere at L3-4, there is moderate bilateral foraminal narrowing without definite exiting L3 nerve root impingement. L4-L5: Mild to moderate central canal stenosis results from broad diffuse posterior disc bulge with c entral disc protrusion, and bulky bilateral facet and ligament hypertrophy. This is best shown on sa gittal image 10 and axial T2 image 31. Mild to moderate bilateral foraminal narrowing is present wit hout exiting L4 nerve root impingement. L5-S1: Broad diffuse posterior disc bulge and moderate bilateral facet and ligament hypertrophy cause s borderline central canal narrowing. Mild right, moderate left inferior foraminal narrowing without definite exiting L5 nerve root impingement SACRUM: Visualized upper sacrum intact. OTHER: No other significant findings. IMPRESSION: Severe central canal stenosis at L3-4 Chronic appearing L1 compression deformity TECHNICAL DOCUMENTATION: JOB ID: [id number] [employer]- All Rights Reserved Reading location - IP/workstation name: [email or web address]
== END ==
LOC: RAD 12:15
PROVIDERS: ATTEND Psychiatry & Neurology Neurology
DX: R26.89 Other abnormalities of gait and mobility (principal); M48.062 Spinal stenosis, lumbar region with neurogenic claudication
CPT/HCPCS: 72148

== ENCOUNTER 2018-05-16 21:15 | Emergency (ER) | payer MEDICARE, OTHER ==
[2018-05-16] MEDS ORDERED: PROPOFOL INJ 200 MG/20 ML VIAL IV ONE (21:51)
[2018-05-16] MEDS ORDERED: NORMAL SALINE 1000 ML 1,000 ML IV ONE (21:51)
[2018-05-16] MEDS ORDERED: ONDANSETRON HCL INJ/PF 4 MG/2 ML SDV IV ONE (21:51)
[2018-05-16] MEDS ORDERED: MORPHINE SULFATE 10 MG/ML INJ IV PRN (21:51)
--- NOTE | 2018-05-16 22:49 | RADIOLOGY REPORT (SQ) ---
3 VIEWS OF THE LEFT SHOULDER PRE AND POSTREDUCTION HISTORY: Fall. Shoulder injury and pain. COMPARISON: None. FINDINGS/IMPRESSION: Prereduction films demonstrate anterior inferior dislocation of the humeral head with respect to the glenoid. No definite fracture is identified. Postreduction films demonstrate interval reduction of glenohumeral dislocation now in anatomic alignment. There is a small lucency in the greater tuberosity which may represent a nondisplaced fracture secondary to dislocation (Hill-Sachs fracture).
--- NOTE | 2018-05-16 22:55 | ER Document Report ---
ED General - General Chief Complaint: Shoulder Injury Stated Complaint: SHOULDER INJURY Time Seen by Provider: 05/16/18 21:51 Notes: Patient is a 72-year-old male with a past medical history of COPD, alcohol abuse who presents after falling while power washing his house. States he got tripped up in the hose of the power wash fell forward onto his left elbow and shoulder. States that since that time he has had a throbbing, severe, constant pain to the left shoulder. States that this pain is worsened by any attempt at moving the shoulder. No history of similar injury in the past. Denies any head or neck trauma. Denies any trauma to any other area than his left shoulder and elbow. Denies any weakness or numbness. He has not contacted his primary care doctor regarding today's concerns. TRAVEL OUTSIDE OF THE [place] IN LAST 30 DAYS: No - Related Data Allergies/Adverse Reactions: Penicillins Allergy (Verified 02/14/18 15:11) Past Medical History - General Information source: Patient - Social History Smoking Status: Current Every Day Smoker Frequency of alcohol use: Heavy Drug Abuse: None Lives with: Family Family History: Reviewed & Not Pertinent - Past Medical History Cardiac Medical History: Reports: Hx Atrial Fibrillation, Hx Congestive Heart Failure, Hx Coronary Artery Disease, Hx Hypertension - MEDS Denies: Hx Heart Attack Pulmonary Medical History: Reports: Hx COPD Denies: Hx Asthma Neurological Medical History: Denies: Hx Cerebrovascular Accident, Hx Seizures Endocrine Medical History: Reports: Hx Diabetes Mellitus Type 2 Renal/ Medical History: Denies: Hx Peritoneal Dialysis GI Medical History: Denies: Hx Hepatitis, Hx Hiatal Hernia, Hx Ulcer Psychiatric Medical History: Reports: Hx Depression, Hx Post Traumatic Stress Disorder Infectious Medical History: Denies: Hx Hepatitis Past Surgical History: Reports: Hx Cardiac Catheterization - stents, Hx Coronary Stent, Hx Open Heart Surgery - STENT LATE 'S, Hx Orthopedic Surgery. Denies: Hx Pacemaker - Immunizations Hx Diphtheria, Pertussis, Tetanus Vaccination: Yes Review of Systems - Review of Systems Notes: Constitutional: Negative for fever. Eyes: Negative for visual changes. ENT: Negative for facial injury Cardiovascular: Negative for chest injury. Respiratory: Negative for shortness of breath. Gastrointestinal: Negative for abdominal injury. Genitourinary: Negative for genital injury Musculoskeletal: Positive for left shoulder injury and left elbow injury Skin: Negative for laceration/abrasions. Neurological: Negative for head injury. Physical Exam - Vital signs Vitals: BP Pulse Ox 142/69 H 94 05/16/18 21:43 05/16/18 21:43 Interpretation: Hypertensive Notes: PHYSICAL EXAMINATION: GENERAL: Appears to be in pain but no acute distress HEAD: Atraumatic, normocephalic. EYES: Pupils equal round and reactive to light, extraocular movements intact, sclera anicteric, conjunctiva are normal. ENT: nares patent, no oral pharyngeal trauma. No hemotympanum, no Mcneil's sign , no raccoon eyes. NECK: No midline cervical spine tenderness. Patient able to move their head to 45 bilaterally without any discomfort. LUNGS: Breath sounds clear to auscultation bilaterally and equal. No wheezes rales or rhonchi. HEART: Regular rate and rhythm without murmurs. CHEST WALL: No ecchymosis over the chest wall. ABDOMEN: Soft, nontender, normoactive bowel sounds. No guarding, no rebound. No abdominal bruising EXTREMITIES: Apparent anterior dislocation of the left shoulder, external exam otherwise unremarkable. BACK: No midline spinal tenderness, step-offs, or deformities. NEUROLOGICAL: RMU motor and sensory distribution intact bilaterally PSYCH: Normal mood, normal affect. SKIN: Warm, Dry, normal turgor, abrasion over the left lateral elbow Course - Re-evaluation Re-evalutation: 05/16/18 23:02 Patient presents after a fall striking his left shoulder and elbow while power washing his house. Denies any additional trauma to any other area of his body. He did present with a dislocation of his left shoulder. Initial x-ray confirms this finding. This was reduced under procedural sedation without complication or difficulty. Patient was placed in a sling thereafter. Postreduction x-rays appear to likely reveal possible Hill-Sachs lesion. Patient did also complain of left elbow pain. X-ray of the left elbow unremarkable without evidence of fracture. Neurovascularly intact. RMU motor and sensory distribution intact. Patient has been instructed to follow-up with orthopedic surgery and maintain a sling until cleared by orthopedic surgery. At this time will discharge with return precautions and follow-up recommendations. Verbal discharge instructions given a the bedside and opportunity for questions given. Medication warnings reviewed. Patient is in agreement with this plan and has verbalized understanding of return precautions and the need for primary care follow-up in the next 24-72 hours. - Vital Signs Vital signs: Temp Pulse Resp BP Pulse Ox 80 18 178/55 H 97 05/16/18 23:15 05/16/18 23:15 05/16/18 23:15 05/16/18 23:15 - Diagnostic Test Radiology reviewed: Image reviewed, Reports reviewed Radiology results interpreted by me: 05/16/18 23:03 Left shoulder x-ray 1: Left shoulder dislocation Left shoulder x-ray 2: Reduction successful. Possible Hill-Sachs lesion Procedures - Conscious Sedation Conscious sedation Time started: 21:50 Time completed: 22:00 Consent obtained: Yes Indication: Left shoulder reduction Prior complications: Procedural sedation Pt with a mild systemic disease.: P2. - ASA Classification. Airway Evaluation: Normal anatomy Mallampati Classification: Class 2 Used during procedure: Suction available, IV access obtained, Pulse ox on pt., compliance monitor on pt. Medications administered: Diprivan Reversal agents: None I personally performed/intraservice time: Sedation, Procedure, 30 min or less Complications: No - Joint Reduction/Fracture Care Left Shoulder Time completed: 22:00 Consent obtained: Yes Conscious sedation: Yes Pre-procedure NV exam: Yes Fracture: Other Manipulation comment: Downward traction external rotation Post-procedure NV exam: Yes Post-reduction x-ray: Joint reduced Reduction attempts: 1 Complications: No Discharge - Discharge Clinical Impression: Hill Sachs deformity, left Dislocation of left shoulder joint Qualifiers: Encounter type: initial encounter Qualified Code(s): S43.005A - Unspecified dislocation of left shoulder joint, initial encounter Fall Qualifiers: Encounter type: initial encounter Qualified Code(s): W19.XXXA - Unspecified fall, initial encounter Injury of left elbow Qualifiers: Encounter type: initial encounter Qualified Code(s): S59.902A - Unspecified injury of left elbow, initial encounter Condition: Good Disposition: HOME, SELF-CARE Instructions: Shoulder Dislocation ([facility]) Additional Instructions: Your shoulder was dislocated today. This was reduced. Please wear the sling as needed for comfort. Follow-up with orthopedic surgery within the next 1 week. You may also have a small fracture of your humeral head associated with your fall today. For your pain: Take ibuprofen 600 mg and acetaminophen 1000 mg every 6 hours together as needed for pain. Continue to apply ice to the area is much your able. Please return immediately if you develop weakness, numbness , spreading redness from the area, or any other symptoms that are concerning to you. Referrals: FELI ASIF PA [Primary Care Provider] - Follow up as needed FELI MINOR MD [ACTIVE STAFF] - Follow up in 3-5 days
--- NOTE | 2018-05-16 23:07 | RADIOLOGY REPORT (SQ) ---
2 VIEWS OF THE LEFT ELBOW HISTORY: Fall. Elbow pain. COMPARISON: None. FINDINGS: Bone mineralization is normal. No acute fracture or malalignment. Joint spaces are preserved. No joint effusion or soft tissue swelling. IMPRESSION: No acute fracture is seen.
[2018-05-17 01:54] VITALS: BP 178/55
== END 2018-05-16 23:15 | disposition home or self-care (01) ==
LOC: ER 21:15
DX: S43.015A Anterior dislocation of left humerus, initial encounter (principal); S43.035A Inferior dislocation of left humerus, initial encounter; S50.312A Abrasion of left elbow, initial encounter; M25.512 Pain in left shoulder; W01.0XXA Fall on same level from slipping, tripping and stumbling without subsequent striking against object, initial encounter; Y93.H9 Activity, other involving exterior property and land maintenance, building and construction; Y92.009 Unspecified place in unspecified non-institutional (private) residence as the place of occurrence of the external cause; I25.10 Atherosclerotic heart disease of native coronary artery without angina pectoris; I10 Essential (primary) hypertension; E11.9 Type 2 diabetes mellitus without complications; J44.9 Chronic obstructive pulmonary disease, unspecified; F17.200 Nicotine dependence, unspecified, uncomplicated; Z88.0 Allergy status to penicillin; Z95.5 Presence of coronary angioplasty implant and graft
CPT/HCPCS: 99284; 96361; 99152; 96374; 96375; 73070; 73020; 73030; 23650; L3650; J2270; J2405; J7030; J2704

== ENCOUNTER → 2018-06-21 | Outpatient (CLI) | payer MEDICARE, OTHER ==
--- NOTE | 2018-06-21 13:13 | RADIOLOGY REPORT (SQ) ---
EXAM DESCRIPTION: CHEST 2 VIEWS COMPLETED DATE/TIME: 06/21/2018 12:56 pm REASON FOR STUDY: CHEST PAIN (R07.9) COMPARISON: 06/16/2015 EXAM PARAMETERS: NUMBER OF VIEWS: two views TECHNIQUE: Digital Frontal and Lateral radiographic views of the chest acquired. RADIATION DOSE: NA LIMITATIONS: none FINDINGS: LUNGS AND PLEURA: No opacities, masses or pneumothorax. No pleural effusion. MEDIASTINUM AND HILAR STRUCTURES: No masses or contour abnormalities. HEART AND VASCULAR STRUCTURES: Heart normal size. No evidence for failure. BONES: No acute findings. HARDWARE: None in the chest. OTHER: No other significant finding. IMPRESSION: NO ACUTE RADIOGRAPHIC FINDING IN THE CHEST. TECHNICAL DOCUMENTATION: JOB ID: [id number] [employer]- All Rights Reserved Reading location - IP/workstation name: [email or web address]
--- NOTE | 2018-06-21 13:49 | RADIOLOGY REPORT (SQ) ---
EXAM DESCRIPTION: L SPINE FLEX/EXT ONLY COMPLETED DATE/TIME: 06/21/2018 12:56 pm REASON FOR STUDY: LUMBAR RADICULOPATHY (M54.16) R07.9 CHEST PAIN, UNSPECIFIED M54.16 RADICULOPATHY , LUMBAR REGION COMPARISON: Lumbar spine MRI 05/08/2018 Lumbar spine plain films 06/02/2015 TECHNIQUE: Lateral flexion and extension radiographs of the spine. NUMBER OF VIEWS: Two views. LIMITATIONS: None. FINDINGS: Bones are osteopenic. Stable L1 50% compression deformity compared to 2014. No new lumbar compression deformities. Disc space loss of height at L3-4, L4-5, and L5-S1. Facet arthropathy at these levels. These findin gs are similar compared to 2015. Calcified abdominal aorta without calcified aneurysm. IMPRESSION: No instability on flexion/ extension Chronic stable 50% compression deformity of L1 TECHNICAL DOCUMENTATION: JOB ID: [id number] [employer]- All Rights Reserved Reading location - IP/workstation name: [email or web address]
== END ==
LOC: RAD 12:15
PROVIDERS: ATTEND Physician Assistant
DX: R07.9 Chest pain, unspecified (principal); M54.16 Radiculopathy, lumbar region
CPT/HCPCS: 71046; 72120

== ENCOUNTER → 2018-07-09 | Outpatient (CLI) | payer MEDICARE, OTHER ==
--- NOTE | 2018-07-09 14:42 | RADIOLOGY REPORT (SQ) ---
EXAM DESCRIPTION: MRI LT UPPER JOINT WITHOUT COMPLETED DATE/TIME: 07/09/2018 1:16 pm REASON FOR STUDY: M25.512 PAIN IN LEFT SHOULDER M25.512 PAIN IN LEFT SHOULDER COMPARISON: Left shoulder films 05/16/2018 TECHNIQUE: Left shoulder images acquired and stored on PACS. Multiplanar imaging to include fat sens itive sequences such as T1, water sensitive sequences such as FST2/STIR, cartilage sensitive sequence s such as FSPD/gradient-echo sequences. LIMITATIONS: None. FINDINGS: BONE MARROW AND CORTEX: A subacute Hill-Sachs deformity is present in the left posterior h umeral head, best shown on axial images 7-10, sagittal image 4 and coronal image 12. JOINT OR BURSAL EFFUSION: Large left glenohumeral joint effusion communicates with the subacromial/bui bdeltoid bursa GLENO-HUMERAL ARTICULATION: Age-appropriate mild chondromalacia at the glenohumeral joint. Normal al ignment ACROMION AND AC JOINT: Type 2 acromion with bulky AC joint hypertrophy, synovial thickening and reshma a in the distal clavicle and acromion best shown on sagittal image 11 and coronal image 10. Narrowin g of the subacromial space. No AC joint widening. ROTATOR CUFF AND INTERVAL: Diffuse full-thickness tear throughout the supraspinatus tendon, extending into the anterior half of the infraspinatus tendon. Broad bare area over the left humeral head whic h abuts the undersurface of the acromion. subscapularis is intact. No rotator interval tear. No rotator interval thickening to suggest adhesive capsulitis. LABRUM AND BICEPS LABRAL COMPLEX: Intra-articular long head biceps tendon is high in signal from te ndinopathy. Superior labral attachment of the long head biceps tendon is intact. There is a broad d iffuse tear throughout the anterior inferior glenoid labrum without underlying bony Bankart lesion. This is best shown on sagittal image 14 and 15, and axial images 12-15. PERIARTICULAR AND ADJACENT SOFT TISSUES: No masses or abnormal nodes. OTHER: No other significant finding. IMPRESSION: Subacute Hill-Sachs deformity left posterior humeral head Full-thickness supraspinatus tear extending into the anterior half infraspinatus Tear anterior inferior glenoid labrum without bony Bankart abnormality TECHNICAL DOCUMENTATION: JOB ID: [id number]- All Rights Reserved Reading location - IP/workstation name: [email or web address]
== END ==
LOC: RAD 13:55
PROVIDERS: ATTEND Physician Assistant
DX: M25.512 Pain in left shoulder (principal); M75.122 Complete rotator cuff tear or rupture of left shoulder, not specified as traumatic; M66.812 Spontaneous rupture of other tendons, left shoulder

== ENCOUNTER 2018-09-03 17:11 | Emergency (ER) | payer MEDICARE, OTHER ==
--- NOTE | 2018-09-03 19:28 | RADIOLOGY REPORT (SQ) ---
EXAM DESCRIPTION: FINGER LEFT COMPLETED DATE/TIME: 09/03/2018 7:10 pm REASON FOR STUDY: lac by power saw COMPARISON: None. NUMBER OF VIEWS: Three views. TECHNIQUE: AP, lateral, and oblique images acquired of the left fourth finger. LIMITATIONS: None. FINDINGS: MINERALIZATION: Normal. BONES: No acute fracture or dislocation. No worrisome bone lesions. SOFT TISSUES: No soft tissue swelling. No foreign body. OTHER: No other significant finding. IMPRESSION: NO RADIOGRAPHIC EVIDENCE OF ACUTE INJURY. TECHNICAL DOCUMENTATION: JOB ID: [id number] [employer]- All Rights Reserved Reading location - IP/workstation name: [email or web address]
[2018-09-03] MEDS ORDERED: LIDOCAINE 1% INJ-PF (10 MG/ML) 30 ML SDV INJ ONE (19:41)
[2018-09-03] MEDS ORDERED: HYDROCODONE/ACETAMINOPHEN 10-325 MG TABLET PO ONE (19:42)
[2018-09-03] MEDS ORDERED: DIPH/PERTUSS(ACELL)/TETANUS VAC/PF 0.5 ML SYR (>=10YO) IM ONE (19:51)
--- NOTE | 2018-09-03 19:58 | ER Document Report ---
HPI - HPI Time Seen by Provider: 09/03/18 18:45 Pain Level: 5 Context: Patient is a 73-year-old male presents to the emergency department with a chief complaint of a laceration to his left fourth finger. The laceration is at the distal aspect of his finger. He was using a power saw and ended up cutting his finger. He states that he actually did not even know he cut his finger until he saw blood everywhere. He is unsure as to when his last tetanus shot was. He denies any blood thinner use. - CONSTITUTIONAL Constitutional: DENIES: Fever, Chills - RESPIRATORY Respiratory: DENIES: Trouble Breathing - REPRODUCTIVE Reproductive: DENIES: : - MUSCULOSKELETAL Musculoskeletal: REPORTS: Extremity pain - Left fourth finger - DERM Skin Color: Normal Skin Problems: None Past Medical History - Social History Smoking Status: Current Every Day Smoker Family History: Reviewed & Not Pertinent Patient has suicidal ideation: No Patient has homicidal ideation: No - Past Medical History Cardiac Medical History: Reports: Hx Atrial Fibrillation, Hx Congestive Heart Failure, Hx Coronary Artery Disease, Hx Hypertension - MEDS Denies: Hx Heart Attack Pulmonary Medical History: Reports: Hx COPD Denies: Hx Asthma Neurological Medical History: Denies: Hx Cerebrovascular Accident, Hx Seizures Endocrine Medical History: Reports: Hx Diabetes Mellitus Type 2 Renal/ Medical History: Denies: Hx Peritoneal Dialysis GI Medical History: Denies: Hx Hepatitis, Hx Hiatal Hernia, Hx Ulcer Psychiatric Medical History: Reports: Hx Depression, Hx Post Traumatic Stress Disorder Infectious Medical History: Denies: Hx Hepatitis Past Surgical History: Reports: Hx Cardiac Catheterization - stents, Hx Coronary Stent, Hx Open Heart Surgery - STENT LATE , Hx Orthopedic Surgery. Denies: Hx Pacemaker - Immunizations Hx Diphtheria, Pertussis, Tetanus Vaccination: Yes Vertical Provider Document - INFECTION CONTROL TRAVEL OUTSIDE OF THE [place] IN LAST 30 DAYS: No - HEENT HEENT: Atraumatic - NECK Neck: Normal Inspection - RESPIRATORY Respiratory: No Respiratory Distress - CARDIOVASCULAR Cardiovascular: Regular Rate Pulses: Normal: Radial - MUSCULOSKELETAL/EXTREMETIES Musculoskeletal/Extremeties: FROM - NEURO Level of Consciousness: Awake, Alert, Appropriate Motor/Sensory: No Motor Deficit - DERM Integumentary: Dry Course - Re-evaluation Re-evalutation: Differential diagnosis includes but is not limited to: Laceration, foreign body, arterial injury, nerve injury, fracture or tendon injury. Patient was able to flex and extend his digits against resistance distal to the laceration with no apparent tendon injury. Sensation and circulation intact distal to the injury with no evidence of nerve damage, bleeding was well-controlled in the emergency department. X-ray was obtained to rule out foreign body, this was negative. Wound was repaired. See procedure note. - Vital Signs Vital signs: Temp Pulse Resp BP Pulse Ox 98.5 F 90 18 118/63 95 09/03/18 17:38 09/03/18 17:38 09/03/18 17:38 09/03/18 17:38 09/03/18 17:38 Procedures - Laceration/Wound Repair Left Distal Finger 4th digit Wound length (cm): 2 Wound's Depth, Shape: Superficial Laceration pre-procedure: Sterile PPE donned, French-Clearianne applied Anesthetic type: 1% Lidocaine Volume Anesthetic (mLs): 6 Wound explored: Clean, No foreign body removed Irrigated w/ Saline (mLs): 20 Wound Repaired With: Sutures Suture Size/Type: 5:0, Nylon Layer Closure?: No Post-procedure wound care: Sterile dressing applied Post-procedure NV exam normal: Yes Complications: No Discharge - Discharge Clinical Impression: Finger laceration Qualifiers: Encounter type: initial encounter Finger: ring finger Damage to nail status: without damage Foreign body presence: without foreign body Laterality: left Qualified Code(s): S61.215A - Laceration without foreign body of left ring finger without damage to nail, initial encounter Condition: Stable Disposition: HOME, SELF-CARE Instructions: Laceration Care ([facility]), Prophylactic Antibiotic ([facility]), Soap Cleansing ([facility]), Tetanus Immunization Given ([facility]) Additional Instructions: Please return to your primary doctor, the ED, or an urgent care in 7 days for suture removal. Return immediately if you develop spreading redness around the wound, pus from the wound, worsening pain, or a fever of >100.4. Keep the area clean and dry. Wash gently with soap and water twice daily and cover with antibiotic ointment. Prescriptions: Cephalexin Monohydrate [Keflex 500 mg Capsule] 500 mg PO Q6H 5 Days capsule Referrals: FELI ASIF PA [NO LOCAL MD] - Follow up in 1 week
[2018-09-03 20:45] VITALS: BP 123/88
== END 2018-09-03 20:46 | disposition home or self-care (01) ==
LOC: ER 17:11
DX: S61.215A Laceration without foreign body of left ring finger without damage to nail, initial encounter (principal); W29.8XXA Contact with other powered hand tools and household machinery, initial encounter; F17.200 Nicotine dependence, unspecified, uncomplicated; I25.10 Atherosclerotic heart disease of native coronary artery without angina pectoris; I10 Essential (primary) hypertension; E11.9 Type 2 diabetes mellitus without complications; J44.9 Chronic obstructive pulmonary disease, unspecified; Z95.5 Presence of coronary angioplasty implant and graft
CPT/HCPCS: 99283; 90471; 73140; 90715; 12001; J3490; A9270

== ENCOUNTER → 2018-11-29 | Outpatient (CLI) | payer MEDICARE, OTHER ==
--- NOTE | 2018-11-30 09:10 | RADIOLOGY REPORT (SQ) ---
EXAM DESCRIPTION: MRI CERVICAL SPINE WITHOUT COMPLETED DATE/TIME: 11/29/2018 9:42 pm REASON FOR STUDY: M54.2 CERVICALGIA M54.2 CERVICALGIA M25.511 PAIN IN RIGHT SHOULDER COMPARISON: Cervical spine outside films 11/24/2018 TECHNIQUE: Sagittal and Axial imaging includes T1, T2, STIR and gradient echo sequences. LIMITATIONS: None. FINDINGS: ALIGNMENT: Normal. VERTEBRAE: Intact. BONE MARROW: Fatty reactive vertebral body endplate changes from C6 through T1. DISCS: Diffuse disc space loss of height at C5-6, C6-7, and C7-T1. Diffuse decreased T2 weighted int ervertebral disc signal throughout the cervical spine HARDWARE: None in the spine. CORD AND BASE OF BRAIN: Normal in size and signal intensity. SOFT TISSUES: No soft tissue masses. C1-C2: No significant spinal stenosis. C2-C3: No significant spinal stenosis or exit foraminal stenosis. C3-C4: No central or right foraminal narrowing. Mild left foraminal narrowing from facet hypertrophy . C4-C5: No central stenosis. Mild right foraminal narrowing. Moderate to high-grade left foraminal n arrowing from facet hypertrophy. C5-C6: Broad diffuse posterior disc bulge and bony spurring partly effaces the ventral thecal sac and abuts the ventral cord without cord flattening or abnormal intrinsic cord signal. Borderline centra l canal stenosis Mild right, moderate left foraminal narrowing from facet hypertrophy. C6-C7: Broad diffuse posterior disc bulge and bony spurring effaces the ventral thecal sac and abuts the ventral cord without cord flattening. Borderline central canal stenosis. High-grade right and l eft foraminal narrowing from bulky facet hypertrophy C7-T1: Broad diffuse posterior disc bulge and bony spurring partly effaces the ventral thecal sac and abuts the ventral cord without cord flattening. Borderline central canal narrowing. High-grade rig ht, moderate left foraminal narrowing. UPPER THORACIC: Mild bilateral T1-2 and T2-3 foraminal narrowing from facet hypertrophy OTHER: No other significant finding. IMPRESSION: Multilevel foraminal narrowing as above TECHNICAL DOCUMENTATION: JOB ID: [id number] [email or web address]- All Rights Reserved Reading location - IP/workstation name: [email or web address]
--- NOTE | 2018-11-30 09:20 | RADIOLOGY REPORT (SQ) ---
EXAM DESCRIPTION: MRI RT UPPER JOINT WITHOUT COMPLETED DATE/TIME: 11/29/2018 9:42 pm REASON FOR STUDY: M54.2 CERVICALGIA M25.511 PAIN IN RIGHT SHOULDER M54.2 CERVICALGIA M25.511 PAIN IN RIGHT SHOULDER COMPARISON: None. TECHNIQUE: Right shoulder images acquired and stored on PACS. Multiplanar imaging to include fat sen sitive sequences such as T1, water sensitive sequences such as FST2/STIR, cartilage sensitive sequenc es such as FSPD/gradient-echo sequences. LIMITATIONS: None. FINDINGS: BONE MARROW AND CORTEX: There are subcortical cysts over the right humeral head greater tu berosity. JOINT OR BURSAL EFFUSION: Moderate amount of fluid in the subacromial/subdeltoid bursa GLENO-HUMERAL ARTICULATION: Normal articulation. No subluxation. No cystic change. Minimal chondroma lacia. No bony spurring ACROMION AND AC JOINT: Type 2 acromion with bulky acromioclavicular joint hypertrophy narrowing the subacromial space. Moderate fluid in the subacromial/subdeltoid bursa from full-thickness rotator cu ff tear ROTATOR CUFF AND INTERVAL: Diffuse full-thickness tear throughout the distal supraspinatus tendon ext ending into the anterior edge infraspinatus tendon, best shown on coronal images 4-13, and sagittal i mages 2-9. Diffuse infraspinatus tendinopathy, with increased signal and thinning of the distal infr aspinatus tendon. Subscapularis is intact. LABRUM AND BICEPS LABRAL COMPLEX: There is diffuse intra-articular long head biceps tendinopathy wi th a superior labral tear without paralabral cyst REMAINDER OF LABRUM AND IGHL : No gross tear or paralabral cyst formation. Labral evaluation is less than optimal without joint distention. No thickening of IGHL to suggest adhesive capsulitis. PERIARTICULAR AND ADJACENT SOFT TISSUES: No masses or abnormal nodes. OTHER: No other significant finding. IMPRESSION: Bulky acromioclavicular joint hypertrophy Diffuse full-thickness supraspinatus tear, extending into the anterior edge infraspinatus tendon Intra-articular long head biceps tendinopathy with superior labral tear TECHNICAL DOCUMENTATION: JOB ID: [id number] [employer]- All Rights Reserved Reading location - IP/workstation name: [email or web address]
== END ==
LOC: RAD 18:51
PROVIDERS: ATTEND Physician Assistant
DX: M54.2 Cervicalgia (principal); M25.511 Pain in right shoulder
CPT/HCPCS: 72141

== ENCOUNTER 2018-12-06 07:38 | Day surgery (SDC) | payer MEDICARE, OTHER ==
[~2018-12-06 07:38] MED LIST changes: -KETOROLAC TROMETHAMINE 0.45% 4 DROP/0.4 ML DROPERETTE OD PRN; +PROPOFOL INJ 200 MG/20 ML VIAL IV ONE
[2018-12-06] MEDS ORDERED: PROPOFOL INJ 200 MG/20 ML VIAL IV ONE (09:27)
[2018-12-06 10:29] VITALS: BP 146/70
--- NOTE | 2018-12-06 14:30 | Operative Report ---
Operative Report DATE OF SURGERY: 12/06/18 Operative Report: The risks, benefits and alternatives of the procedure including the risk of bleeding, perforation requiring surgery have been explained to the patient in detail and informed consent has been obtained. Patient is placed in a left, lateral decubital position. Timeout was called. Propofol medication is administered. Rectal examination is done which did not reveal any masses, tears or fissures. The scope was then carefully inserted into the patient's rectum. The scope was then carefully advanced all the way to the cecum. The cecum was identified by the usual anatomical landmarks including the ileocecal valve as well as the appendiceal office. Photodocumentation is obtained. The scope was then sequentially pulled back via the various segments of the colon including the ascending colon, hepatic flexure, transverse colon, splenic flexure, descen ding colon and finally into the rectosigmoid portions of the colon. Retroflexion maneuvers performed. The risks benefits and alternatives of the procedure explained to the patient in detail and informed consent is obtained.A GIF Olympus video scope was inserted into the patient's mouth and hypopharynx, the esophagus is identified intubated and insufflated, the scope was then advanced through the esophagus stomach and duodenum, retroflexion maneuver is done, the esophagus stomach and first and second portions of the duodenum examined. PREOPERATIVE DIAGNOSIS: Change in bowel habits. Previous history of C. difficile infection. Weight loss. Dyspepsia POSTOPERATIVE DIAGNOSIS: Multiple colon polyps removed via snare polypectomy and retrieved. Diverticulosis without any evidence of diverticulitis. Internal hemorrhoids. Banda's esophagus status post radiofrequency ablation. Hiatal hernia. Gastritis status post biopsy rule out Helicobacter pylori OPERATION: Colonoscopy with snare polypectomy. EGD with radiofrequency ablation. EGD with biopsy SURGEON: ALEX MALONEY ANESTHESIA: LMAC TISSUE REMOVED OR ALTERED: As noted above. COMPLICATIONS: None. ESTIMATED BLOOD LOSS: None. INTRAOPERATIVE FINDINGS: As noted above. PROCEDURE: Patient tolerated the procedure well. No immediate postprocedure complications are noted. Patient discharged in good condition. Discharge date 12/06/2018. Discharge diet: Regular. Discharge activity: Regular. 2 to 3-week follow-up to discuss findings. Patient is instructed to call the office or proceed to the emergency room should there be any further questions. Wait on the pathology. 3 to 5-year surveillance colonoscopy.
== END 2018-12-06 10:30 | disposition home or self-care (01) ==
LOC: END 07:38
PROVIDERS: ATTEND Internal Medicine Gastroenterology
DX: D12.6 Benign neoplasm of colon, unspecified (principal); D12.5 Benign neoplasm of sigmoid colon; D12.8 Benign neoplasm of rectum; K22.70 Barrett's esophagus without dysplasia; K57.30 Diverticulosis of large intestine without perforation or abscess without bleeding; K64.8 Other hemorrhoids; K44.9 Diaphragmatic hernia without obstruction or gangrene; K29.70 Gastritis, unspecified, without bleeding; R63.4 Abnormal weight loss; I48.0 Paroxysmal atrial fibrillation; E03.9 Hypothyroidism, unspecified; E78.5 Hyperlipidemia, unspecified; I10 Essential (primary) hypertension; E11.9 Type 2 diabetes mellitus without complications; I25.10 Atherosclerotic heart disease of native coronary artery without angina pectoris; N40.1 Benign prostatic hyperplasia with lower urinary tract symptoms; Z68.24 Body mass index [BMI] 24.0-24.9, adult; Z79.899 Other long term (current) drug therapy; Z79.84 Long term (current) use of oral hypoglycemic drugs; Z79.01 Long term (current) use of anticoagulants
CPT/HCPCS: 43270; 43239; 45385; 82962; 88342 ×2; 88341 ×2; 88305 ×2; J2704

== ENCOUNTER 2019-01-18 13:45 | Emergency (ER) | payer MEDICARE, OTHER ==
[2019-01-18] MEDS ORDERED: LIDOCAINE 5% (700 MG) TRANSDERMAL ADH..PATCH TP ONE (14:27)
[2019-01-18] MEDS ORDERED: KETOROLAC TROMETHAMINE 60 MG/2 ML SDV IM ONE (14:27)
--- NOTE | 2019-01-18 14:38 | ER Document Report ---
HPI - HPI Time Seen by Provider: 01/18/19 14:09 Pain Level: 5 Notes: Patient is a 73-year-old male with a history of chronic shoulder pain right shoulder pain who presents complaining of continued pain to his right shoulder despite being on oxycodone 10/325 through pain management. He has shoulder surgery scheduled in 9 days for rotator cuff repair. Patient originally called his surgeon requesting a steroid injection, but it is too close to the surgery date so he could not get that performed. Patient states that the pain is status quo from previous. He has been taking his pain medicine as directed. Pain does not radiate. He does perform therapy at home as well. No other concerns or complaints. No recent illness. Denies any headache, fever, neck pain, URI, sore throat, chest pain, palpitations, syncope, cough, shortness of breath, wheeze, dyspnea, abdominal pain, nausea/vomiting/diarrhea, urinary retention, dysuria, hematuria, loss of control of bowel or bladder, numbness/tingling, muscle paralysis, or rash. - ROS Systems Reviewed and Negative: Yes All other systems reviewed and negative - REPRODUCTIVE Reproductive: DENIES: : Past Medical History - Social History Smoking Status: Unknown if Ever Smoked Family History: Reviewed & Not Pertinent - Past Medical History Cardiac Medical History: Reports: Hx Atrial Fibrillation, Hx Congestive Heart Failure, Hx Coronary Artery Disease Denies: Hx Heart Attack, Hx Hypertension Pulmonary Medical History: Denies: Hx Asthma, Hx Bronchitis, Hx COPD, Hx Pneumonia Neurological Medical History: Denies: Hx Cerebrovascular Accident, Hx Seizures Endocrine Medical History: Reports: Hx Diabetes Mellitus Type 2 Renal/ Medical History: Denies: Hx Peritoneal Dialysis GI Medical History: Denies: Hx Hepatitis, Hx Hiatal Hernia, Hx Ulcer Musculoskeletal Medical History: Reports Hx Arthritis Psychiatric Medical History: Reports: Hx Depression, Hx Post Traumatic Stress Disorder Infectious Medical History: Denies: Hx Hepatitis Past Surgical History: Reports: Hx Cardiac Catheterization - stents, Hx Coronary Stent, Hx Open Heart Surgery - STENT LATE , Hx Orthopedic Surgery. Denies: Hx Pacemaker - Immunizations Hx Diphtheria, Pertussis, Tetanus Vaccination: Yes Vertical Provider Document - CONSTITUTIONAL Agree With Documented VS: Yes Notes: PHYSICAL EXAMINATION: GENERAL: Well-appearing, well-nourished and in no acute distress. NECK: Normal range of motion, supple without lymphadenopathy. Non-tender. Spurling negative. No rigidity/meningismus. LUNGS: Breath sounds clear to auscultation bilaterally and equal. No wheezes rales or rhonchi. HEART: Regular rate and rhythm Musculoskeletal: Rt shoulder: FROM to passive. LROM to active due to pain. Strength 4+/5 due to pain. + impingement test. Neg speed test. No crepitus. No erythema or warmth. No deformity or ecchymosis. RC intact 4+/5 strength. Extremities: No cyanosis, clubbing, or edema b/l. Peripheral pulses 2+. Capillary refill less than 3 seconds. NEUROLOGICAL: Normal speech, normal gait. Normal sensory, motor exams PSYCH: Normal mood, normal affect. SKIN: Warm, Dry, normal turgor, no rashes or lesions noted. - INFECTION CONTROL TRAVEL OUTSIDE OF THE [place] IN LAST 30 DAYS: No Course - Re-evaluation Re-evalutation: 01/18/19 14:36 Patient is an afebrile, well-hydrated, 73yo male who presents to the ED with chronic right shoulder pain with scheduled surgery 9 days. Vitals are acceptable without any significant tachycardia, tachypnea, or hypoxia. PE is otherwise unremarkable for any neurovascular compromise, obvious fracture/dislocation, septic joint. Patient was given a sling today with exercises reviewed. Patient was also given Toradol and a Lidoderm patch. Patient is nontoxic-appearing. No other labs or imaging warranted at this time based on H&P. Conservative measures otherwise for symptoms. Recheck with your PCM in 3-5 days. Keep scheduled appointment with surgery in 9 days. Return to the ED with any worsening/concerning symptoms otherwise as reviewed in discharge. Patient is in agreement. - Vital Signs Vital signs: Temp Pulse Resp BP Pulse Ox 98.5 F 105 H 18 138/74 H 96 01/18/19 13:47 01/18/19 13:47 01/18/19 13:47 01/18/19 13:47 01/18/19 13:47 Discharge - Discharge Clinical Impression: Chronic right shoulder pain Condition: Stable Disposition: HOME, SELF-CARE Additional Instructions: Rest, Ice, Compression, Elevation Use sling as directed Tylenol/ibuprofen as needed Light stretches daily Strength exercises as able Moist heat and massage may help F/u with your PCP in 3-5 days for a recheck Keep appointment with orthopedics for your surgery in 9 days Return to the ED with any worsening symptoms and/or development of fever, headache, chest pain, palpitations, syncope, shortness of breath, trouble breathing, abdominal pain, n/v/d, muscle weakness/paralysis, numbness/tingling, swelling, redness, or other worsening symptoms that are concerning to you. Forms: Elevated Blood Pressure Referrals: FELI ASIF PA [NO LOCAL MD] - 01/27/19
[2019-01-18 14:58] VITALS: BP 126/73
== END 2019-01-18 15:04 | disposition home or self-care (01) ==
LOC: ER 13:45
DX: G89.29 Other chronic pain (principal); M25.511 Pain in right shoulder; Z79.891 Long term (current) use of opiate analgesic; I25.10 Atherosclerotic heart disease of native coronary artery without angina pectoris; E11.9 Type 2 diabetes mellitus without complications; Z95.5 Presence of coronary angioplasty implant and graft
CPT/HCPCS: 99283; 96374; J1885

== ENCOUNTER → 2019-02-04 | Outpatient (CLI) | payer MEDICARE, OTHER ==
--- NOTE | 2019-02-04 12:16 | RADIOLOGY REPORT (SQ) ---
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 RENAL FUNCTION: GFR > 60. TECHNIQUE: CT scan of the chest performed using helical scanning technique with dynamic intravenous contrast injection. Images reviewed with lung, soft tissue and bone windows. Reconstructed coronal a nd sagittal MPR images reviewed. All images stored on PACS. CT scan of the abdomen and pelvis performed with intravenous and with oral contrastusing helical scan domenic technique with dynamic intravenous contrast injection. Images reviewed with lung, soft tissue a nd bone windows. Reconstructed coronal and sagittal MPR images reviewed. Delayed images for evaluat ion of the urinary system also acquired and evaluated. All images stored on PACS. All CT scanners at this facility use dose modulation, iterative reconstruction, and/or weight based d osing when appropriate to reduce radiation dose to as low as reasonably achievable (ALARA). [facility]: Dose Right [facility]: CareDose [facility]: Dose Right [facility]: Teradose 4D [facility]: Smart WebLinc RADIATION DOSE: CT Rad equipment meets quality standard of care and radiation dose reduction techniq ues were employed. CTDIvol: 6.0 - 7.7 mGy. DLP: 972 mGy-cm. . LIMITATIONS: None. FINDINGS: CHEST: LUNGS AND PLEURA: Minimal ground-glass densities in the left upper lobe, acuity and significance inde terminate. No nodules or masses or pleural disease. Mild apical emphysema and scarring. HILAR AND MEDIASTINAL STRUCTURES: Shotty subcentimeter mediastinal nodes. No enlarged nodes. HEART AND VASCULAR STRUCTURES: No pericardial effusion. Normal heart size. No aortic aneurysm or di ssection. Moderate coronary calcification. HARDWARE: None. THYROID AND OTHER SOFT TISSUES: No masses. No adenopathy. BONES: No fracture or worrisome bone lesion. L1 grossly chronic appearing vertebral compression frac ture. OTHER: No other significant finding. ABDOMEN AND PELVIS: LIVER: Sub 2 cm calcification in the liver dome. No enhancing lesions. No duct dilatation. Normal liver size and contours. SPLEEN: Normal size. No focal lesions. PANCREAS: No masses. No significant calcifications. No adjacent inflammation or peripancreatic fluid collections. Pancreatic duct not dilated. GALLBLADDER: No identified stones by CT criteria. No inflammatory changes to suggest cholecystitis. ADRENAL GLANDS: No significant masses or asymmetry. RIGHT KIDNEY AND URETER: No solid masses. No significant calcification. No hydronephrosis or hydroure ter. LEFT KIDNEY AND URETER: No solid masses. No significant calcification. No hydronephrosis or hydrouret er. AORTA AND VESSELS: Heavy aortic calcification without aneurysm or dissection. Major branch arteries are patent, but there appears to be some narrowing at the origin of the celiac and superior mesenteri c arteries. . No venous clot detected. RETROPERITONEUM: No retroperitoneal adenopathy, hemorrhage or masses. BOWEL AND PERITONEAL CAVITY: No bowel wall thickening or inflammatory process. Diverticulosis in the sigmoid. No gross mass or evidence of mechanical bowel obstruction. No ascites. No bulky adenopat hy. APPENDIX: Not visualized. ABDOMINAL WALL: No masses. No hernias. PELVIS: No mass or free fluid. Normal bladder. BONES: No significant or acute findings. OTHER: No other significant finding. IMPRESSION: 1. No suspicious lung lesions. Nonspecific ground-glass infiltrates in the left upper lobe. No nodu les or masses, however. 2. No metastatic lesions are suggested in the abdomen or pelvis. 3. Extensive atherosclerotic calcification with associated findings as above. TECHNICAL DOCUMENTATION: JOB ID: [id number] Quality ID # [id number]: Final reports with documentation of one or more dose reduction techniques (e.g., Au tomated exposure control, adjustment of the mA and/or kV according to patient size, use of iterative reconstruction technique) 2010 [employer]- All Rights Reserved Reading location - IP/workstation name: [email or web address]
== END ==
LOC: RAD 10:40
PROVIDERS: ATTEND Internal Medicine Hematology & Oncology
DX: C7A.026 Malignant carcinoid tumor of the rectum (principal)
CPT/HCPCS: 36415; 71260; 74177; 82565

== ENCOUNTER 2019-03-04 18:27 | Emergency (ER) | payer MEDICARE, OTHER ==
[2019-03-04 19:25] LABS: ABSOLUTE BASOPHILS # (AUTO) 0.1 10^3/uL (0.0-0.2); ABSOLUTE EOSINOPHILS # (AUTO) 0.3 10^3/uL (0.0-0.6); ABSOLUTE LYMPHOCYTES (AUTO) 1.3 10^3/uL (0.5-4.7); ABSOLUTE NEUT (AUTO) 4.7 10^3/uL (1.7-8.2); BASOPHILS % (AUTO) 0.8 % (0-2); EOSINOPHILS % (AUTO) 4.3 % (0-6); HEMATOCRIT 46.9 % (37.9-51.0); HEMOGLOBIN 15.7 g/dL (13.5-17.0); MEAN CORPUSCULAR HEMOGLOBIN 30.8 pg (27.0-33.4); MEAN CORPUSCULAR HGB CONC 33.4 g/dL (32.0-36.0); MEAN CORPUSCULAR VOLUME 92 fl (80-97); MONOCYTES % (AUTO) 13.1 % (3-13); PLATELET COUNT 205 10^3/uL (150-450); RED BLOOD COUNT 5.09 10^6/uL (4.35-5.55); RED CELL DISTRIBUTION WIDTH 17.8 % (11.5-14.0); SEGMENTED NEUTROPHILS % (AUTO) 63.8 % (42-78); TOTAL CELLS COUNTED % (AUTO) 100 %; WHITE BLOOD COUNT 7.3 10^3/uL (4.0-10.5)
[2019-03-04 19:28] LABS: ALBUMIN 3.2 g/dL (3.5-5.0); ALKALINE PHOSPHATASE 115 U/L (38-126); ANION GAP 8 (5-19); ASPARTATE AMINO TRANSFERASE 16 U/L (17-59); BILIRUBIN,DIRECT 0.4 mg/dL (0.0-0.4); BILIRUBIN,TOTAL 0.6 mg/dL (0.2-1.3); BLOOD UREA NITROGEN 10 mg/dL (7-20); CALCIUM 8.8 mg/dL (8.4-10.2); CARBON DIOXIDE 24 mmol/L (22-30); CHLORIDE 102 mmol/L (98-107); GLUCOSE 80 mg/dL (75-110); POTASSIUM 3.7 mmol/L (3.6-5.0); TOTAL PROTEIN 6.2 g/dL (6.3-8.2)
--- NOTE | 2019-03-04 20:43 | ER Document Report ---
ED General - General Chief Complaint: Fall Stated Complaint: FALL,HEAD AND BACK PAIN Time Seen by Provider: 03/04/19 20:20 Primary Care Provider: CYN BERGER PA-C [Primary Care Provider] - Follow up in 3-5 days Mode of Arrival: Medic Information source: Patient Notes: This 73-year-old male presents to the emergency department the EMS for passing out. Patient reports that he passed out a couple days ago. He reports he passed out 3 times today. He reports couple days ago he was voiding when he turned around and fell. He reports his head hit the toilet. He reports he was only out for a couple seconds. Patient reports he had the same episode 3 times today. He reports the first time he had just finished voiding when he became dizzy so he lowered himself to the ground and fell forward. He reports he was out for a few seconds. The second time he was voiding when he became dizzy when he turned around he passed out. He reports he hit his lower back on the shower track. He reports the last time he passed out he was voiding again became dizzy and fell and hit his head. Patient has a V-shaped laceration to his forehead. Patient reports he has a history of many years. He reports he has an appointment with his ENT next week. Patient also has a history of A. fib diabetes and prostate issues. Patient had recent shoulder surgery on his right shoulder a month and a half ago at [place]. He denies feeling nauseated vomiting. He denies shortness of breath or chest pain. He reports he has been weak for months and his doctor , Dr. Berger, has recently done blood work on him. He was worried he had hepatitis because he is lost 17 pounds over the past 6 months. The hepatitis was negative. Patient reports he has had menieres for over 15 years. He reports this is typical of his Mnire's TRAVEL OUTSIDE OF THE [place] IN LAST 30 DAYS: No - HPI Onset: Other Quality of pain: Achy Severity: Moderate Associated symptoms: None Exacerbated by: Denies Relieved by: Denies Similar symptoms previously: Yes Recently seen / treated by doctor: No - Related Data Allergies/Adverse Reactions: Penicillins Allergy (Mild, Verified 01/18/19 13:48) Nausea Past Medical History - General Information source: Patient - Social History Smoking Status: Current Some Day Smoker Cigarette use (# per day): No - CIGARS Frequency of alcohol use: Occasional Drug Abuse: None Lives with: Family Family History: Reviewed & Not Pertinent Patient has suicidal ideation: No Patient has homicidal ideation: No - Past Medical History Cardiac Medical History: Reports: Hx Atrial Fibrillation, Hx Congestive Heart Failure, Hx Coronary Artery Disease Denies: Hx Heart Attack, Hx Hypertension Pulmonary Medical History: Denies: Hx Asthma, Hx Bronchitis, Hx COPD, Hx Pneumonia Neurological Medical History: Denies: Hx Cerebrovascular Accident, Hx Seizures Endocrine Medical History: Reports: Hx Diabetes Mellitus Type 2 Renal/ Medical History: Denies: Hx Peritoneal Dialysis GI Medical History: Denies: Hx Hepatitis, Hx Hiatal Hernia, Hx Ulcer Musculoskeletal Medical History: Reports Hx Arthritis Psychiatric Medical History: Reports: Hx Depression, Hx Post Traumatic Stress Disorder Infectious Medical History: Denies: Hx Hepatitis Past Surgical History: Reports: Hx Cardiac Catheterization - stents, Hx Coronary Stent, Hx Open Heart Surgery - STENT LATE 90'S, Hx Orthopedic Surgery. Denies: Hx Pacemaker - Immunizations Immunizations up to date: Yes Hx Diphtheria, Pertussis, Tetanus Vaccination: Yes Review of Systems - Review of Systems Notes: Review HPI for review of systems., All other systems negative Physical Exam - Vital signs Vitals: Temp Pulse Resp BP Pulse Ox 98.1 F 95 12 121/60 95 03/04/19 18:34 03/04/19 18:34 03/04/19 18:34 03/04/19 18:34 03/04/19 18:34 - General General appearance: Alert In distress: Mild - HEENT Head: Tenderness. No: Abrasions Eyes: Normal Conjunctiva: Normal Extraocular movements intact: Yes Pupils: PERRL Ears: Normal External canal: Normal Tympanic membrane: Normal Mucous membranes: Moist Pharynx: Normal. No: Erythema Neck: Normal, Supple. No: Lymphadenopathy - Cardiovascular Rhythm: Regular Heart sounds: Normal auscultation Murmur: No - Abdominal Inspection: Normal Distension: No distension Bowel sounds: Normal Tenderness: Nontender Organomegaly: No organomegaly - Back Back: Tender - Patient complains of thoracic and lower lumbar back pain. Patient has history of back pain surgery. Good distal movement and sensation no weakness - Extremities General upper extremity: Normal color, Normal ROM General lower extremity: Normal color, Normal ROM, Normal weight bearing - Neurological Neuro grossly intact: Yes Cognition: Normal Orientation: AAOx4 Barre Coma Scale Eye Opening: Spontaneous Connor Coma Scale Verbal: Oriented Connor Coma Scale Motor: Obeys Commands Connor Coma Scale Total: 15 Speech: Normal Cranial nerves: Normal Cerebellar coordination: Normal Motor strength normal: LUE, RUE, LLE, RLE Additional motor exam normals: Equal soil conservation aide - Psychological Associated symptoms: Normal affect, Normal mood - Skin Skin Temperature: Warm Skin Moisture: Dry Skin irregularity: Laceration Location of irregularity: Face - v shaped linear ~ 3 cm left part of v 2 cm right part of v Course - Re-evaluation Re-evalutation: 03/04/19 21:57 This 73-year-old male presents emergency department with reports of passing out. Patient reports he is passed out 4 times in the last few days. He reports he passed out 3 times today. Denies chest pain shortness of breath. Denies headache. Reports forehead tender to palpate around laceration. Also reports low back pain. Patient has history of chronic back pain. Reports that when he fell down he grabbed the shower door and jerked his back. Patient takes 10 mg of Percocet for pain daily. Reports he is taking it at least 4 times a day for the past 17 years. Patient also reports he has a history of Mnire's. The patient has decided not to proceed with further recommended testing or treatment to determine the cause of their symptoms. The risks and alternatives to the recommendations were discussed and the patient was understanding. The patient appears clinically to have the capacity to make this decision. Patient was instructed that he/she could return to the emergency department at any time to complete the testing treatment. Discharge instructions were completed but p atient left without receiving them. Dictation of this chart was performed using voice recognition software; therefore, there may be some unintended grammatical errors. Cervical Spine CT 03/04/19 20:38 IMPRESSION: No acute fracture or subluxation of the cervical spine. Head CT 03/04/19 20:38 IMPRESSION: No acute intracranial findings. Lumbar Spine CT 03/04/19 20:38 IMPRESSION: 1. No acute compression fracture of the lumbar spine. 2. Moderate canal stenosis at L4-L5, which may be MRI if clinically indicated. Shoulder X-Ray 03/04/19 20:38 IMPRESSION: No acute fracture or malalignment. Thoracic Spine CT 03/04/19 20:38 IMPRESSION: No acute compression fracture of the thoracic spine. 03/04/19 18:50 03/04/19 18:50 MCV 92 fl (80-97) 03/04/19 18:50 MCH 30.8 pg (27.0-33.4) 03/04/19 18:50 MCHC 33.4 g/dL (32.0-36.0) 03/04/19 18:50 RDW 17.8 % (11.5-14.0) H 03/04/19 18:50 Seg Neutrophils % 63.8 % (42-78) 03/04/19 18:50 Lymphocytes % 18.0 % (13-45) 03/04/19 18:50 Monocytes % 13.1 % (3-13) H 03/04/19 18:50 Eosinophils % 4.3 % (0-6) 03/04/19 18:50 Basophils % 0.8 % (0-2) 03/04/19 18:50 Absolute Neutrophils 4.7 10^3/uL (1.7-8.2) 03/04/19 18:50 Absolute Lymphocytes 1.3 10^3/uL (0.5-4.7) 03/04/19 18:50 Absolute Monocytes 1.0 10^3/uL (0.1-1.4) 03/04/19 18:50 Absolute Eosinophils 0.3 10^3/uL (0.0-0.6) 03/04/19 18:50 Absolute Basophils 0.1 10^3/uL (0.0-0.2) 03/04/19 18:50 Chloride 102 mmol/L (98-107) 03/04/19 18:50 Carbon Dioxide 24 mmol/L (22-30) 03/04/19 18:50 Anion Gap 8 (5-19) 03/04/19 18:50 Est GFR ( Amer) > 60 (>60) 03/04/19 18:50 Est GFR (Non-Af Amer) > 60 (>60) 03/04/19 18:50 Glucose 80 mg/dL (75-110) 03/04/19 18:50 Calcium 8.8 mg/dL (8.4-10.2) 03/04/19 18:50 Total Bilirubin 0.6 mg/dL (0.2-1.3) 03/04/19 18:50 AST 16 U/L (17-59) L 03/04/19 18:50 Alkaline Phosphatase 115 U/L (38-126) 03/04/19 18:50 Total Protein 6.2 g/dL (6.3-8.2) L 03/04/19 18:50 Albumin 3.2 g/dL (3.5-5.0) L 03/04/19 18:50 03/04/19 03/04/19 18:50 18:50 Creatine Kinase 47 L Troponin I < 0.012 - Vital Signs Vital signs: Temp Pulse Resp BP Pulse Ox 98.3 F 85 16 148/85 H 95 03/04/19 23:13 03/04/19 23:13 03/04/19 23:13 03/04/19 23:13 03/04/19 23:13 - Laboratory Result Diagrams: 03/04/19 18:50 03/04/19 18:50 Laboratory results interpreted by me: 03/04/19 03/04/19 03/04/19 18:50 18:50 18:50 RDW 17.8 H Monocytes % 13.1 H Sodium 134.2 L AST 16 L Creatine Kinase 47 L Total Protein 6.2 L Albumin 3.2 L - Diagnostic Test Radiology reviewed: Image reviewed, Reports reviewed - EKG Interpretation by Me Rate: Normal Rhythm: NSR Additional EKG results interpreted by me: 03/05/19 08:[address] elevation no T wave inversion Procedures - Laceration/Wound Repair forehead Time completed: 23:00 Wound length (cm): 5 Wound's Depth, Shape: Other Laceration pre-procedure: Shur-Clens applied Anesthetic type: 1% Lidocaine Volume Anesthetic (mLs): 3 Wound explored: Clean Irrigated w/ Saline (mLs): 100 Wound Repaired With: Sutures Suture Size/Type: 5:0, Prolene Number of Sutures: 6 Discharge - Discharge Clinical Impression: Syncope Qualifiers: Syncope type: unspecified Qualified Code(s): R55 - Syncope and collapse Head injury Qualifiers: Encounter type: initial encounter Qualified Code(s): S09.90XA - Unspecified injury of head, initial encounter Forehead laceration Qualifiers: Encounter type: initial encounter Qualified Code(s): S01.81XA - Laceration without foreign body of other part of head, initial encounter Back pain Qualifiers: Back pain location: thoracic back pain Chronicity: acute Back pain laterality: bilateral Qualified Code(s): M54.6 - Pain in thoracic spine Condition: Stable Disposition: AGAINST MEDICAL ADVICE Instructions: Head Injury Precautions ([facility]), Laceration Care ([facility]), Soap Cleansing ([facility]), Syncopal Episode ([facility]) Additional Instructions: *You have been evaluated for multiple syncope episodes, head injury, laceration, back pain *You have declined admission to the hospital *please stand up slowly, ensure you are drinking lots of water *Take your medication as prescribed *Follow up with your provider Thursday as scheduled *Monitor your sutures for signs of infection such as redness swelling warmth pain ... Return to the emergency department for any signs of infection *return to the Emergency Department in 5 days for suture removal. *Return to ED for worsening condition, changes, needs *Return to ED if not better in 24 hours Forms: Elevated Blood Pressure Referrals: CYN BERGER PA-C [Primary Care Provider] - Follow up in 3-5 days
[2019-03-04 21:41] LABS: INTERNATIONAL RATION (INR) 0.96; PROTHROMBIN TIME 12.8 SEC (11.4-15.4)
[2019-03-04 21:42] LABS: PARTIAL THROMBOPLASTIN TIME 35.3 SEC (23.5-35.8)
--- NOTE | 2019-03-04 21:46 | RADIOLOGY REPORT (SQ) ---
CT CERVICAL SPINE WITHOUT IV CONTRAST EXAM DATE: 03/04/2019 8:38 PM CDT HISTORY: Neck pain. COMPARISON: None. TECHNIQUE: CT scan of the cervical spine without IV contrast. This exam was performed according to our departmental dose-optimization program, which includes automated exposure control, adjustment of the mA and/or kV according to patient size and/or use of iterative reconstruction technique. FINDINGS: No acute cervical fracture or prevertebral soft tissue swelling is seen. There is straightening of the normal cervical lordosis, which may be due to cervical collar, muscle spasm, or patient positioning. Multilevel degenerative disc disease along with facet arthropathy is present. There are multilevel disc bulges but without advanced canal stenosis identified. Emphysematous changes are seen at the lung apices. IMPRESSION: No acute fracture or subluxation of the cervical spine.
--- NOTE | 2019-03-04 21:47 | RADIOLOGY REPORT (SQ) ---
CT HEAD WITH IV CONTRAST EXAM DATE: 03/04/2019 8:38 PM CDT HISTORY: FALL, HEAD INJURY. COMPARISON: None. TECHNIQUE: CT scan of the brain without IV contrast. This exam was performed according to our departmental dose-optimization program, which includes automated exposure control, adjustment of the mA and/or kV according to patient size and/or use of iterative reconstruction technique. FINDINGS: There are scattered areas of hypoattenuation within the periventricular white matter, which likely represent chronic microvascular ischemia. No evidence of acute infarction, intracranial hemorrhage, extra-axial fluid collection, or midline shift. No air-fluid levels are seen in the paranasal sinuses to suggest acute sinusitis. No depressed skull fracture. IMPRESSION: No acute intracranial findings.
--- NOTE | 2019-03-04 21:49 | RADIOLOGY REPORT (SQ) ---
CT THORACIC SPINE WITHOUT IV CONTRAST EXAM DATE: 03/04/2019 8:38 PM CDT HISTORY: Back pain. COMPARISON: None. TECHNIQUE: CT scan of the thoracic spine without IV contrast. This exam was performed according to our departmental dose-optimization program, which includes automated exposure control, adjustment of the mA and/or kV according to patient size and/or use of iterative reconstruction technique. FINDINGS: No acute compression fracture is seen. The thoracic alignment is maintained. Mild degenerative disc disease throughout the thoracic spine. No advanced canal stenosis is identified. IMPRESSION: No acute compression fracture of the thoracic spine.
--- NOTE | 2019-03-04 21:51 | RADIOLOGY REPORT (SQ) ---
CT LUMBAR SPINE WITHOUT IV CONTRAST EXAM DATE: 03/04/2019 8:38 PM CDT HISTORY: FALL, HEAD INJURY. COMPARISON: Abdomen CT dated 02/04/2019. TECHNIQUE: CT scan of the lumbar spine without IV contrast. This exam was performed according to our departmental dose-optimization program, which includes automated exposure control, adjustment of the mA and/or kV according to patient size and/or use of iterative reconstruction technique. FINDINGS: No acute compression fracture is seen. Chronic L1 compression fracture is seen. Prior laminectomy at L4. Mild straightening of the lumbar lordosis. Multilevel degenerative disc disease and facet arthropathy, greatest at L5-S1. Sacroiliac joints are intact. There are multilevel disc bulges, greatest at L4-L5 with moderate canal stenosis. IMPRESSION: 1. No acute compression fracture of the lumbar spine. 2. Moderate canal stenosis at L4-L5, which may be MRI if clinically indicated.
--- NOTE | 2019-03-04 21:52 | RADIOLOGY REPORT (SQ) ---
3 VIEWS OF RIGHT SHOULDER EXAM DATE: 03/04/2019 8:38 PM CDT HISTORY: Fall with recent shoulder surgery. COMPARISON: None. FINDINGS: Generalized osteopenia is present. There are mild degenerative changes of the acromioclavicular and glenohumeral joints. [place] screw is seen in the humeral head from prior rotator cuff repair. No acute fracture or dislocation. Unremarkable soft tissues. IMPRESSION: No acute fracture or malalignment.
[2019-03-04] MEDS ORDERED: FENTANYL CITRATE INJ/PF 100 MCG/2 ML AMPUL IV ONE ×2 (21:59→23:00)
[2019-03-04] MEDS ORDERED: LIDOCAINE 1% INJ-PF (10 MG/ML) 30 ML SDV INJ ONE (22:03)
[2019-03-04 23:15] VITALS: BP 148/85
--- NOTE | 2019-03-05 10:36 | EKG REPORT ---
SEVERITY:- BORDERLINE ECG - SINUS RHYTHM PROBABLE LEFT ATRIAL ABNORMALITY [facility] : Confirmed by: Khang Velásquez 05-Mar-2019 10:34:50
== END 2019-03-04 23:30 | disposition left against medical advice (07) ==
LOC: ER 18:27
DX: S09.90XA Unspecified injury of head, initial encounter (principal); S01.81XA Laceration without foreign body of other part of head, initial encounter; M54.6 Pain in thoracic spine; R55 Syncope and collapse; W19.XXXA Unspecified fall, initial encounter; F17.200 Nicotine dependence, unspecified, uncomplicated; I48.91 Unspecified atrial fibrillation; E11.9 Type 2 diabetes mellitus without complications; Z88.0 Allergy status to penicillin
CPT/HCPCS: 93005; 96376; 99285; 96374; 36415; 82550; 85025; 85610; 85730; 80053; 84484; 73030; 70460; 72125; 72128; 72131; 93010; 12013; J3010; J3490

== ENCOUNTER 2019-03-08 12:04 | Emergency (ER) | payer MEDICARE, OTHER ==
--- NOTE | 2019-03-08 12:56 | ER Document Report ---
ED Medical Screen (RME) - General Chief Complaint: Suture Removal Stated Complaint: SUTURE REMOVAL Time Seen by Provider: 03/08/19 12:55 Primary Care Provider: CYN THOMAS PA-C [Primary Care Provider] - Follow up as needed Notes: Patient is a 73-year-old male who presents to the emergency department with a chief complaint of suture removal. Patient states he fell last Thursday and had sutures placed to the center of his forehead. Patient has no complaints and states it is healing well without drainage or signs of infection. Patient states about a month and a half ago he did have right shoulder surgery and is currently having right shoulder pain. Patient states he is being followed by the orthopedist and does take Percocet 10/325 mg which he did take around 9 this morning. Patient does report a history of A. fib and does take Eliquis. He reports he does have a cardiac stent. Patient denies weakness, chest pain, shortness of breath or any other complaints TRAVEL OUTSIDE OF THE [place] IN LAST 30 DAYS: No - Related Data Allergies/Adverse Reactions: Penicillins Allergy (Mild, Verified 01/18/19 13:48) Nausea Past Medical History - Past Medical History Cardiac Medical History: Reports: Hx Atrial Fibrillation, Hx Congestive Heart Failure, Hx Coronary Artery Disease Denies: Hx Heart Attack, Hx Hypertension Pulmonary Medical History: Denies: Hx Asthma, Hx Bronchitis, Hx COPD, Hx Pneumonia Neurological Medical History: Denies: Hx Cerebrovascular Accident, Hx Seizures Endocrine Medical History: Reports: Hx Diabetes Mellitus Type 2 Renal/ Medical History: Denies: Hx Peritoneal Dialysis GI Medical History: Denies: Hx Hepatitis, Hx Hiatal Hernia, Hx Ulcer Musculoskeltal Medical History: Reports Hx Arthritis Psychiatric Medical History: Reports: Hx Depression, Hx Post Traumatic Stress Disorder Infectious Medical History: Denies: Hx Hepatitis Past Surgical History: Reports: Hx Cardiac Catheterization - stents, Hx Coronary Stent, Hx Open Heart Surgery - STENT LATE 'S, Hx Orthopedic Surgery. Denies: Hx Pacemaker - Immunizations Immunizations up to date: Yes Hx Diphtheria, Pertussis, Tetanus Vaccination: Yes Influenza Administration Date for 04/2017 - 09/2017 Season: 05/20/18 Physical Exam - Vital signs Vitals: Temp Pulse Resp BP Pulse Ox 98.1 F 125 H 18 123/68 95 03/08/19 12:17 03/08/19 12:17 03/08/19 12:17 03/08/19 12:17 03/08/19 12:17 - Cardiovascular Rhythm: Tachycardia Heart sounds: Normal auscultation Course - Re-evaluation Re-evalutation: 03/08/19 12:57 Patient here for suture removal. In triage it was noted that the patient's heart rate was 125 and due to his A. fib he was brought back to room. Patient has no complaints to include shortness of breath, chest pain, palpitations, dizziness. Patient states he is just having right shoulder pain which is not new for him as he did have surgery a month and a half ago. Patient's heart rate was elevated but when auscultated sounded regular. Will obtain an EKG. I have greeted and performed a rapid initial assessment of this patient. A comprehensive ED assessment and evaluation of the patient, analysis of test results and completion of the medical decision making process will be conducted by additional ED providers. - Vital Signs Vital signs: Temp Pulse Resp BP Pulse Ox 98.1 F 125 H 18 123/68 95 03/08/19 12:17 03/08/19 12:17 03/08/19 12:17 03/08/19 12:17 03/08/19 12:17 Doctor's Discharge - Discharge Referrals: CYN THOMAS PA-C [Primary Care Provider] - Follow up as needed
--- NOTE | 2019-03-08 14:24 | ER Document Report ---
ED General - General Chief Complaint: Suture Removal Stated Complaint: SUTURE REMOVAL Time Seen by Provider: 03/08/19 12:55 Primary Care Provider: CYN THOMSA PA-C [Primary Care Provider] - Follow up as needed TRAVEL OUTSIDE OF THE [place] IN LAST 30 DAYS: No - HPI Notes: Patient presents for suture removal. He states he fell roughly 5 days ago and hit his head on a cabinet. He states he has had no problems with pain or discomfort of the suture site. He said he had no shortness of breath. He says he has a chronic smoker's cough but there is nothing new. He was evaluated in the triage area. He was noted to have a heart rate 125 so he was referred to the main area for further evaluation. He denies any chest pain or shortness of breath. He states he does have some right shoulder pain but he just had right shoulder surgery. He states he also has some leg weakness but this is chronic and not new. Patient's right shoulder pain is constant and moderate. It is w orse with movement and better with rest. It does not radiate. It does not appear to be cardiac in nature. It appears to be consistent with postoperative pain. - Related Data Allergies/Adverse Reactions: Penicillins Allergy (Mild, Verified 01/18/19 13:48) Nausea Past Medical History - General Information source: Patient - Social History Smoking Status: Current Every Day Smoker Frequency of alcohol use: States he drinks 2-3 beers per day Drug Abuse: None Family History: Reviewed & Not Pertinent Patient has suicidal ideation: No Patient has homicidal ideation: No - Past Medical History Cardiac Medical History: Reports: Hx Atrial Fibrillation, Hx Congestive Heart Failure, Hx Coronary Artery Disease Denies: Hx Heart Attack, Hx Hypertension Pulmonary Medical History: Denies: Hx Asthma, Hx Bronchitis, Hx COPD, Hx Pneumonia Neurological Medical History: Denies: Hx Cerebrovascular Accident, Hx Seizures Endocrine Medical History: Reports: Hx Diabetes Mellitus Type 2 Renal/ Medical History: Denies: Hx Peritoneal Dialysis GI Medical History: Denies: Hx Hepatitis, Hx Hiatal Hernia, Hx Ulcer Musculoskeletal Medical History: Reports Hx Arthritis Psychiatric Medical History: Reports: Hx Depression, Hx Post Traumatic Stress Disorder Infectious Medical History: Denies: Hx Hepatitis Past Surgical History: Reports: Hx Cardiac Catheterization - stents, Hx Coronary Stent, Hx Open Heart Surgery - STENT LATE , Hx Orthopedic Surgery. Denies: Hx Pacemaker - Immunizations Immunizations up to date: Yes Hx Diphtheria, Pertussis, Tetanus Vaccination: Yes Review of Systems - Review of Systems Constitutional: denies: Chills, Fever Cardiovascular: denies: Chest pain, Palpitations, Dyspnea, Syncope, Dizziness, Lightheaded Musculoskeletal: Other - Leg weakness Skin: See HPI -: Yes All other systems reviewed and negative Physical Exam - Vital signs Vitals: Temp Pulse Resp BP Pulse Ox 98.1 F 125 H 18 123/68 95 03/08/19 12:17 03/08/19 12:17 03/08/19 12:17 03/08/19 12:17 03/08/19 12:17 Interpretation: Normal - General General appearance: Appears well, Alert - HEENT Head: Normocephalic, Other - Patient has a well-healed sutured wound in the center of the forehead and a V-shaped. Eyes: Normal Pupils: PERRL - Respiratory Respiratory status: No respiratory distress Chest status: Nontender Breath sounds: Normal Chest palpation: Normal - Cardiovascular Rhythm: Regular, Other - On my exam his heart was regular rate and rhythm. The heart rate was 92 and regular. Heart sounds: Normal auscultation Murmur: No - Abdominal Inspection: Normal Distension: No distension Bowel sounds: Normal Tenderness: Nontender Organomegaly: No organomegaly - Back Back: Normal, Nontender - Extremities General upper extremity: Normal inspection, Nontender, Normal color, Normal ROM, Normal temperature General lower extremity: Normal inspection, Nontender, Normal color, Normal ROM, Normal temperature, Normal weight bearing. No: Leo's sign - Neurological Neuro grossly intact: Yes Cognition: Normal Orientation: AAOx4 Connor Coma Scale Eye Opening: Spontaneous Morton Coma Scale Verbal: Oriented Connor Coma Scale Motor: Obeys Commands Morton Coma Scale Total: 15 Speech: Normal Motor strength normal: LUE, RUE, LLE, RLE Sensory: Normal - Psychological Associated symptoms: Normal affect, Normal mood - Skin Skin Temperature: Warm Skin Moisture: Dry Skin Color: Other - Patient has a wound and a V-shaped in the center of his forehead. It is sutured with 6 sutures. The wound appears well approximated. There is no signs of infection. It does appear that sutures can be removed. Course - Vital Signs Vital signs: Temp Pulse Resp BP Pulse Ox 98.3 F 98 16 144/69 H 93 03/08/19 13:42 03/08/19 13:42 03/08/19 13:42 03/08/19 13:42 03/08/19 13:42 - EKG Interpretation by Me EKG shows normal: Sinus rhythm Rate: Normal Rhythm: NSR - 100 [place]/QRS: Left axis deviation Discharge - Discharge Clinical Impression: Sinus tachycardia, Visit for suture removal Condition: Stable Disposition: HOME, SELF-CARE Additional Instructions: Please watch wound for signs of infection. I did my best to remove all pieces of suture from the wound. However it is a possibility that there still could be a retained portion of suture. If any part of the wound appears swollen painful or erythematous please return for evaluation. Referrals: CYN THOMAS PA-C [Primary Care Provider] - Follow up as needed
[2019-03-08 14:51] VITALS: BP 160/81
--- NOTE | 2019-03-08 20:02 | EKG REPORT ---
SEVERITY:- BORDERLINE ECG - SINUS TACHYCARDIA ATRIAL PREMATURE COMPLEX LEFT AXIS DEVIATION BORDERLINE R WAVE PROGRESSION, ANTERIOR LEADS : Confirmed by: Eliane Xavier MD 08-Mar-2019 20:02:13
== END 2019-03-08 14:51 | disposition home or self-care (01) ==
LOC: ER 12:04
DX: S01.80XD Unspecified open wound of other part of head, subsequent encounter (principal); W19.XXXD Unspecified fall, subsequent encounter; R05 Cough; R00.0 Tachycardia, unspecified; I48.91 Unspecified atrial fibrillation; Z79.02 Long term (current) use of antithrombotics/antiplatelets; F17.200 Nicotine dependence, unspecified, uncomplicated; R53.1 Weakness; M25.511 Pain in right shoulder; Z98.890 Other specified postprocedural states; I25.10 Atherosclerotic heart disease of native coronary artery without angina pectoris; E11.9 Type 2 diabetes mellitus without complications; Z95.5 Presence of coronary angioplasty implant and graft; Z88.0 Allergy status to penicillin
CPT/HCPCS: 93005; 93010; 99281

== ENCOUNTER → 2019-04-06 | Outpatient (CLI) | payer MEDICARE, OTHER ==
--- NOTE | 2019-04-06 16:01 | RADIOLOGY REPORT (SQ) ---
EXAM DESCRIPTION: NM WHOLE BODY BONE SCAN COMPLETED DATE/TIME: 04/06/2019 1:57 pm REASON FOR STUDY: (M25.50)AIN IN UNSPECIFIED JOINT M25.50 PAIN IN UNSPECIFIED JOINT COMPARISON: Multiple CTs, radiographs, MRIs RADIONUCLIDE AND DOSE: 20 millicuries Tc99m HDP. The route of agent administration: Intravenous. ADDITIONAL DRUGS AND DOSES: None. TECHNIQUE: Routine delayed images at 3 hours post radionuclide injection acquired of the bony skelet on including anterior and posterior whole-body projections and additional focused images as needed. LIMITATIONS: None. FINDINGS: BONES: There is focal uptake in the lateral right 4th rib. There is focal uptake in the g reater trochanter on the left. KIDNEYS: Symmetric excretion without obstruction. OTHER: No other significant finding. IMPRESSION: There are 2 areas of focal uptake that could be explained by trauma. Metastatic disease cannot entirely be ruled out. COMMENT: Quality measure 147: Current bone scan is compared with any available plain radiographs, p rior bone scans, and CT/MRI. TECHNICAL DOCUMENTATION: JOB ID: [id number] [employer]- All Rights Reserved Reading location - IP/workstation name: [email or web address]
== END ==
LOC: RAD 07:59
PROVIDERS: ATTEND Physician Assistant
DX: M25.50 Pain in unspecified joint (principal)
CPT/HCPCS: 78306; A9561; Q9969

== ENCOUNTER → 2019-04-20 | Outpatient (CLI) | payer MEDICARE, OTHER ==
--- NOTE | 2019-04-20 17:01 | RADIOLOGY REPORT (SQ) ---
EXAM DESCRIPTION: MRI LT LOWER EXTREMITY COMBO COMPLETED DATE/TIME: 04/20/2019 4:44 pm REASON FOR STUDY: M25.552 PAIN IN LEFT HIP M25.552 PAIN IN LEFT HIP R93.7 ABNORMAL FINDINGS ON SANJEEV GNOSTIC IMAGING OF PRT MS SYS COMPARISON: Outside radiographs 04/11/2019. TECHNIQUE: Multiplanar imaging of the left hip and proximal thigh to include T1-weighted, postcontra st T1-weighted, and T2-weighted images. CONTRAST TYPE AND DOSE: 15 ML Dotarem. RENAL FUNCTION: Not indicated. ACR Type II contrast agent associated with few, if any, unconfounded cases of NSF LIMITATIONS: None. FINDINGS: BONE MARROW: Best demonstrated on T2 fat saturated and STIR sequences is mild hyperintensi ty in the lower sacrum. Suspicious for fracture. Underlying bone lesions felt to be less likely. M arrow signal in the spine and visualized pelvis otherwise looks normal. Specifically, no bone lesion s related to the left hip or proximal femur. SOFT TISSUES: No fluid collections. No enhancing lesions. OTHER: No other significant finding. IMPRESSION: 1. Abnormal marrow signal in the lower sacrum. This is less than optimally evaluated given the focus sed left hip technique. Further sacral MR imaging can be considered if warranted. Of note, recent b one scan also suboptimally evaluates the sacrum (given obscuring bladder artifact). TECHNICAL DOCUMENTATION: JOB ID: [id number] [employer]- All Rights Reserved Reading location - IP/workstation name: [email or web address]
--- NOTE | 2019-04-20 17:15 | RADIOLOGY REPORT (SQ) ---
EXAM DESCRIPTION: MRI CHEST COMBO COMPLETED DATE/TIME: 04/20/2019 4:44 pm REASON FOR STUDY: R93.7 ABNORMAL FINDINGS ON DIAGNOSTIC IMAGING OF PRT MS SYS M25.552 PAIN IN LEFT HIP R93.7 ABNORMAL FINDINGS ON DIAGNOSTIC IMAGING OF PRT MS SYS COMPARISON: Bone scan 04/06/2019. TECHNIQUE: Multiplanar imaging of the chest to include T1-weighted, postcontrast T1-weighted, and T2 -weighted images. CONTRAST TYPE AND DOSE: 15 mL Dotarem. RENAL FUNCTION: Not indicated. ACR Type II contrast agent associated with few, if any, unconfounded cases of NSF LIMITATIONS: Spatial resolution of the ribs is somewhat limited with MRI. Difficult to count indivi dual ribs for localization purposes. On this study, there is also approximately moderate motion audrey fact which limits. FINDINGS: BONE MARROW: Anterior right lateral ribs show focal hyperintensity, please see series 3 im age 14 through 17. These areas probably correspond to the abnormal bone scan uptake, suggestive of c ontusions or small areas of healing nondisplaced fracture. As above, difficult to determine specific ally which ribs these represent. Mild midthoracic end plate related edema, presumably degenerative. SOFT TISSUES: No gross enhancing lesions or soft tissue fluid collections. Suggestion of asymmetric signal in the right shoulder musculature. Includes probable edema in the infraspinatus and possibly some fatty atrophy in the subscapularis. Incompletely assessed. There is also a small lipoma along the right chest wall deep soft tissues measuring just over 5 cm. This lies just below the level of t he axilla. OTHER: No other significant finding. IMPRESSION: 1. Several right anterior rib contusions or nondisplaced fractures. 2. No overt suggestion of metastatic disease to bone. Additional bone findings include probable midt horacic spondylosis. 3. Soft tissue findings as above. Suspect edema and/or fatty atrophy in the right shoulder musculatu re. This is incompletely assessed. TECHNICAL DOCUMENTATION: JOB ID: [id number] [employer]- All Rights Reserved Reading location - IP/workstation name: [email or web address]
== END ==
LOC: RAD 14:34
PROVIDERS: ATTEND Physician Assistant
DX: M25.552 Pain in left hip (principal); R93.7 Abnormal findings on diagnostic imaging of other parts of musculoskeletal system
CPT/HCPCS: 73720; 71552; A9576

== ENCOUNTER → 2019-04-21 | Outpatient (CLI) | payer MEDICARE, OTHER ==
[2019-04-21 12:56] LABS: ANION GAP 7 (5-19); BLOOD UREA NITROGEN 9 mg/dL (7-20); CARBON DIOXIDE 26 mmol/L (22-30); CHLORIDE 100 mmol/L (98-107); GLUCOSE 88 mg/dL (75-110); POTASSIUM 4.7 mmol/L (3.6-5.0)
--- NOTE | 2019-04-21 21:51 | EKG REPORT ---
SEVERITY:- ABNORMAL ECG - SINUS RHYTHM LEFT ATRIAL ABNORMALITY BORDERLINE LEFT AXIS DEVIATION BORDERLINE T ABNORMALITIES, ANT-LAT LEADS : Confirmed by: Eliane Xavier MD 21-Apr-2019 21:50:23
== END ==
LOC: OD 11:24
PROVIDERS: ATTEND Surgery
DX: Z01.818 Encounter for other preprocedural examination (principal); I87.2 Venous insufficiency (chronic) (peripheral); E11.9 Type 2 diabetes mellitus without complications; I73.9 Peripheral vascular disease, unspecified; J44.9 Chronic obstructive pulmonary disease, unspecified; I48.91 Unspecified atrial fibrillation; I25.10 Atherosclerotic heart disease of native coronary artery without angina pectoris; E78.5 Hyperlipidemia, unspecified; M19.90 Unspecified osteoarthritis, unspecified site; K21.9 Gastro-esophageal reflux disease without esophagitis; F10.20 Alcohol dependence, uncomplicated; E03.9 Hypothyroidism, unspecified; Z85.820 Personal history of malignant melanoma of skin
CPT/HCPCS: 36415; 80048; 93005; 93010

== ENCOUNTER 2019-04-27 07:41 | Day surgery (SDC) | payer MEDICARE, OTHER ==
[2019-04-27 09:31] LABS: HEMATOCRIT 47.4 % (37.9-51.0); HEMOGLOBIN 16.2 g/dL (13.5-17.0); MEAN CORPUSCULAR HEMOGLOBIN 31.8 pg (27.0-33.4); MEAN CORPUSCULAR HGB CONC 34.1 g/dL (32.0-36.0); MEAN CORPUSCULAR VOLUME 93 fl (80-97); PLATELET COUNT 224 10^3/uL (150-450); RED BLOOD COUNT 5.08 10^6/uL (4.35-5.55); RED CELL DISTRIBUTION WIDTH 16.9 % (11.5-14.0); WHITE BLOOD COUNT 8.7 10^3/uL (4.0-10.5)
[2019-04-27 09:42] LABS: INTERNATIONAL RATION (INR) 0.96; PROTHROMBIN TIME 12.8 SEC (11.4-15.4)
[2019-04-27 09:43] LABS: PARTIAL THROMBOPLASTIN TIME 31.9 SEC (23.5-35.8)
[2019-04-27 09:52] LABS: ANION GAP 8 (5-19); BLOOD UREA NITROGEN 9 mg/dL (7-20); CALCIUM 9.1 mg/dL (8.4-10.2); CARBON DIOXIDE 28 mmol/L (22-30); CHLORIDE 99 mmol/L (98-107); GLUCOSE 87 mg/dL (75-110); POTASSIUM 3.9 mmol/L (3.6-5.0)
[2019-04-27] MEDS ORDERED: PROPOFOL INJ 200 MG/20 ML VIAL IV ONE ×2 (10:38→11:18)
[2019-04-27 13:09] VITALS: BP 145/86
--- NOTE | 2019-04-27 13:10 | EKG REPORT ---
SEVERITY:- BORDERLINE ECG - SINUS RHYTHM VENTRICULAR PREMATURE COMPLEX PROBABLE LEFT ATRIAL ABNORMALITY LEFT AXIS DEVIATION : Confirmed by: Estuardo Riddle MD 27-Apr-2019 13:09:49
--- NOTE | 2019-04-29 08:16 | Discharge Summary ---
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 ACTIVITY TOLERATED. FOLLOW UP 1-2 WEEKS. Referrals: CYN THOMAS PA-C [Primary Care Provider] - COSTA IRBY MD [ACTIVE STAFF] - 05/09/19 8:45 am (FOLLOW UP APPOINTMENT) Discharge Diet: As Tolerated Respiratory Treatments at Home: Deep Breathing/Coughing, Incentive Spirometer Discharge Activity: Activity As Tolerated Home Care Assistance: None Needed Adaptive Devices on Discharge: Straight Cane Report the Following to Your Physician Immediately: Shortness of Breath, Nausea, Vomiting, Increase in Pain, Fever over 101 Degrees, Unusual Bleeding
--- NOTE | 2019-04-29 08:21 | Operative Report ---
Nonrecallable Operative Report DATE OF SURGERY: 04/27/19 PREOPERATIVE DIAGNOSIS: Carcinoid tumor of the rectum POSTOPERATIVE DIAGNOSIS: Carcinoid tumor of the rectum, scar present at 6 cm from the dentate line in the right posterior position OPERATION: 1. Flexible sigmoidoscopy. 2. Submucosal injection of Christin ink at tumor location SURGEON: COSTA IRBY ANESTHESIA: LMAC TISSUE REMOVED OR ALTERED: None COMPLICATIONS: None apparent ESTIMATED BLOOD LOSS: Minimal PROCEDURE: Procedure in detail: After informed consent was obtained, the patient was brought to the operating room and laid in the left lateral decubitus position. The endoscope was passed up the rectum, and sigmoid colon. At approximately 20 cm in the sigmoid colon several small scars were identified. These corresponded to the polypectomies performed in the sigmoid colon. The scope was withdrawn, circumferentially examining the mucosa. Multiple washings were undertaken in order to visualize the mucosa. As the scope was withdrawn, a scar within the rectal vault was identified. It was immediately distal to the last valve of High. It measured 6 cm from the dentate line. Next, Christin ink was injected immediately beneath the scar, to facilitate easy identification during resection. Once the Christin ink was injected, the scope was removed, and the procedure was concluded. All sponge, instrument, and needle counts were correct x2. Condition: Stable.
== END 2019-04-27 13:00 | disposition home or self-care (01) ==
LOC: OROUT 07:41
PROVIDERS: ATTEND Surgery
DX: D3A.026 Benign carcinoid tumor of the rectum (principal); Z79.01 Long term (current) use of anticoagulants; E11.9 Type 2 diabetes mellitus without complications; Z79.84 Long term (current) use of oral hypoglycemic drugs; I25.10 Atherosclerotic heart disease of native coronary artery without angina pectoris; I10 Essential (primary) hypertension
CPT/HCPCS: 45331; 36415; 82962; 85027; 85610; 85730; 80048; 93005; 93010; 00811; J2704; 811

== ENCOUNTER → 2019-05-10 | Outpatient (CLI) | payer MEDICARE, OTHER ==
--- NOTE | 2019-05-10 09:59 | WOMENS IMAGING REPORT ---
EXAM DESCRIPTION: BONE DENSITY HIP/SPINE COMPLETED DATE/TIME: 05/10/2019 9:29 am REASON FOR STUDY: M81.0 BONE SCAN S32.10XS UNSPECIFIED FRACTURE OF SACRUM, SEQUELA M81.0 AGE-RELAT ED OSTEOPOROSIS W/O CURRENT PATHOLOGICAL FRAC COMPARISON: None. TECHNIQUE: Dual-Energy X-ray Absorptiometry (DEXA) of the AP Spine and Hip. LIMITATIONS: None. FINDINGS: LUMBAR SPINE: The bone mineral density (BMD) measured from L1-L4 in the AP projection correlates with a T-score of 1.0, which is normal as defined by the World Health Organization. BMD Change vs Baseline: N/A HIP: The bone mineral density (BMD) measured in the left hip correlates with a T-score of -1.3 the neck, w hich is osteopenia as defined by the World Health Organization. BMD Change vs Baseline: N/A 10 year Fracture Risk Assessment: Major Osteoporotic Fracture: 5.5% without prior fracture. 8.2% with prior fracture. Hip Fracture: 2.2% without prior fracture. 3.1% with prior fracture. IMPRESSION: 1. LUMBAR SPINE WHO CLASSIFICATION: NORMAL. 2. HIP WHO CLASSIFICATION: OSTEOPENIA. OVERALL ASSESSMENT: WHO CLASSIFICATION: OSTEOPENIA. COMMENT: The World Health Organization defines low BMD as follows: T-score: Normal: Greater than -1.0 Osteopenia: Between -1.0 and -2.5 Osteoporosis: Less than -2.5 without fractures Established osteoporosis: Less than -2.5 with fractures In general, you may wish to consider: Diagnosis Treatment Follow-up DEXA Normal BMD Prevention 2-3 years Osteopenia Prevention/Therapy 1-2 years Osteoporosis Therapy Yearly TECHNICAL DOCUMENTATION: JOB ID: [id number] [employer]- All Rights Reserved Reading location - IP/workstation name: [email or web address]
--- NOTE | 2019-05-11 10:08 | RADIOLOGY REPORT (SQ) ---
EXAM DESCRIPTION: MRI LUMBAR SPINE WITHOUT COMPLETED DATE/TIME: 05/10/2019 8:25 am REASON FOR STUDY: UNSPEC FX OF SACRUM, SEQUELA (S32.10XS) S32.10XS UNSPECIFIED FRACTURE OF SACRUM, SEQUELA COMPARISON: None. TECHNIQUE: Multiplanar imaging of the lower lumbar spine and sacrum to include fat and fluid sensiti ve sequences. LIMITATIONS: None. FINDINGS: BONE MARROW: There is mild marrow edema involving the right lateral aspect of the sacral a la and lower sacral segments. This is most likely related to stress fracture or posttraumatic change . SOFT TISSUES: There is focal soft tissue edema involving the left aspect of the paravertebral muscles at the level of L5. OTHER: No other significant finding. IMPRESSION: Focal marrow edema involving the right lower aspect of the sacral ala and a lower sacral segment. Most likely posttraumatic or related to insufficiency fracture. Small amount of edema in the left spinous muscles at the level of L5. TECHNICAL DOCUMENTATION: JOB ID: [id number] [employer] All Rights Reserved Reading location - IP/workstation name: [email or web address]
== END ==
LOC: RAD 07:38
PROVIDERS: ATTEND Physician Assistant
DX: S32.10XS Unspecified fracture of sacrum, sequela (principal); X58.XXXS Exposure to other specified factors, sequela; M81.0 Age-related osteoporosis without current pathological fracture
CPT/HCPCS: 72148; 77080

== ENCOUNTER 2019-05-30 05:32 | Observation (INO) | payer MEDICARE, OTHER ==
[2019-05-23 09:57] LABS: HEMOGLOBIN 15.7 g/dL (13.5-17.0); MEAN CORPUSCULAR HEMOGLOBIN 32.2 pg (27.0-33.4); MEAN CORPUSCULAR VOLUME 95 fl (80-97); PLATELET COUNT 195 10^3/uL (150-450); RED BLOOD COUNT 4.86 10^6/uL (4.35-5.55); RED CELL DISTRIBUTION WIDTH 15.6 % (11.5-14.0); WHITE BLOOD COUNT 8.2 10^3/uL (4.0-10.5)
[2019-05-23 10:24] LABS: ANION GAP 7 (5-19); BLOOD UREA NITROGEN 13 mg/dL (7-20); CALCIUM 8.7 mg/dL (8.4-10.2); CARBON DIOXIDE 29 mmol/L (22-30); CHLORIDE 96 mmol/L (98-107); GLUCOSE 79 mg/dL (75-110); POTASSIUM 3.8 mmol/L (3.6-5.0)
--- NOTE | 2019-05-24 09:48 | EKG REPORT ---
SEVERITY:- BORDERLINE ECG - SINUS RHYTHM PROBABLE LEFT ATRIAL ABNORMALITY BORDERLINE LEFT AXIS DEVIATION : Confirmed by: Khang Velásquez 24-May-2019 09:47:00
[~2019-05-30 05:32] MED LIST changes: +CEFOXITIN SODIUM 2 GM in DEXTROSE 5%-WATER 100 ML IV PRN; +IBUPROFEN 800 MG in NORMAL SALINE 250 ML IV PRN; +LACTATED RINGERS 1000 ML IV PRN; +LIDOCAINE 0.5% INJ-PF (5 MG/ML) 50 ML SDV SUBCUT PRN; -PROPOFOL INJ 200 MG/20 ML VIAL IV ONE
[2019-05-30] MEDS ORDERED: MIDAZOLAM 2 MG/2 ML INJ ONE (06:25)
[2019-05-30] MEDS ORDERED: SUGAMMADEX SODIUM 200 MG/2 ML SDV IV ONE (06:25)
[2019-05-30] MEDS ORDERED: DEXAMETHASONE SOD PHOSPHATE INJ 4 MG/1 ML VIAL ONE (06:25)
[2019-05-30] MEDS ORDERED: FENTANYL CITRATE INJ/PF 250 MCG/5 ML AMPULE ONE (06:25)
[2019-05-30] MEDS ORDERED: FENTANYL CITRATE INJ/PF 100 MCG/2 ML AMPUL ONE (06:25)
[2019-05-30] MEDS ORDERED: ONDANSETRON HCL INJ/PF 4 MG/2 ML SDV ONE (06:25)
[2019-05-30] MEDS ORDERED: PROPOFOL INJ 200 MG/20 ML VIAL IV ONE (06:26)
[2019-05-30] MEDS ORDERED: LIDOCAINE 0.5% INJ-PF (5 MG/ML) 50 ML SDV ONE (06:28)
[2019-05-30 06:58] LABS: INTERNATIONAL RATION (INR) 0.96; PROTHROMBIN TIME 12.8 SEC (11.4-15.4)
[2019-05-30 06:59] LABS: PARTIAL THROMBOPLASTIN TIME 31.9 SEC (23.5-35.8)
[2019-05-30] MEDS ORDERED: MORPHINE SULFATE 10 MG/ML INJ IV PRN (08:48)
[2019-05-30] MEDS ORDERED: DIPHENHYDRAMINE HCL 50 MG/ML VIAL IV PRN (08:48)
[2019-05-30] MEDS ORDERED: PROMETHAZINE HCL INJ 25 MG/1 ML VIAL IV PRN ×2 (08:48)
[2019-05-30] MEDS ORDERED: FENTANYL CITRATE INJ/PF 100 MCG/2 ML AMPUL IV PRN ×3 (08:48)
[2019-05-30] MEDS ORDERED: ONDANSETRON HCL INJ/PF 4 MG/2 ML SDV IV PRN ×2 (08:48→09:37)
[2019-05-30] MEDS ORDERED: MEPERIDINE HCL/PF INJ 25 MG/1 ML DISP.SYRIN IV PRN (08:48)
[2019-05-30] MEDS ORDERED: ROCURONIUM BROMIDE INJ 50 MG/5 ML VIAL IV ONE (10:00)
[2019-05-30] MEDS ORDERED: PHENYLEPHRINE HCL INJ/PF 10 MG/1 ML SDV ONE (10:00)
[2019-05-30] MEDS ORDERED: SUCCINYLCHOLINE CHLORIDE INJ 200 MG/10 ML VIAL ONE (10:00)
[2019-05-30] MEDS: DEXTROSE 5%-LACTATED RINGERS 1,000 ML IV PRN (11:29)
[2019-05-30] MEDS: FAMOTIDINE INJ/PF 20 MG/2 ML SDV IV SCH ×2 (12:14→21:59)
[2019-05-30] MEDS: MORPHINE SULFATE 10 MG/ML INJ IV PRN (12:14)
[2019-05-30] MEDS ORDERED: (PENDING PHARMACY ID) (Oxycodone Hcl/Acetaminophen [Oxycodone-Acetaminophen 10-325] 1 EACH PO PRN (14:20)
[2019-05-30] MEDS ORDERED: METHOCARBAMOL 500 MG TABLET PO PRN (14:20)
[2019-05-30] MEDS ORDERED: ALBUTEROL SULFATE 0.042% NEB (1.25 MG/3 ML) AMPUL NEB PRN (14:29)
[2019-05-30] MEDS ORDERED: (PENDING PHARMACY ID) (Difluprednate [Durezol] 1 DROP) OP SCH (14:30)
[2019-05-30] MEDS ORDERED: (PENDING PHARMACY ID) (Oxycodone Hcl/Acetaminophen [Percocet 10-325 Mg Tablet] 1 TAB) PO PRN (15:13)
[2019-05-30] MEDS ORDERED: METHOCARBAMOL 750 MG TABLET PO PRN (15:13)
[2019-05-30] MEDS ORDERED: OXYCODONE-ACETAMINOPHEN 5-325 MG TABLET PO PRN (15:19)
[2019-05-30] MEDS ORDERED: OXYCODONE HCL IR 5 MG TABLET PO PRN (15:20)
[2019-05-30] MEDS ORDERED: LORAZEPAM INJ 2 MG/1 ML VIAL IV PRN (16:24)
[2019-05-30] MEDS: METFORMIN HCL 500 MG TABLET PO SCH (16:48)
[2019-05-30] MEDS: CEFOXITIN SODIUM 2 GM in DEXTROSE 5%-WATER 100 ML IV SCH (16:53)
[2019-05-30] MEDS: GABAPENTIN 300 MG CAPSULE PO SCH (17:35)
[2019-05-30] MEDS: DOCUSATE SODIUM 100 MG CAPSULE PO SCH (17:35)
[2019-05-30] MEDS ORDERED: BUPROPION HCL 100 MG TABLET PO SCH (18:00)
[2019-05-30] MEDS ORDERED: ALFUZOSIN HCL PO SCH (18:00)
[2019-05-30] MEDS ORDERED: (PENDING PHARMACY ID) (Brimonidine Tartrate [Alphagan P] 1 DROP) OP SCH (18:00)
[2019-05-30] MEDS ORDERED: BUSPIRONE HCL 10 MG TABLET PO SCH (18:00)
[2019-05-30] MEDS ORDERED: CILOSTAZOL 100 MG TABLET PO SCH (18:00)
[2019-05-30] MEDS ORDERED: (PENDING PHARMACY ID) (Metformin Hcl [Glucophage] 500 MG) PO SCH (18:00)
[2019-05-30] MEDS: CILOSTAZOL 100 MG TABLET PO SCH (18:07)
[2019-05-30] MEDS: BUPROPION HCL 100 MG TABLET PO SCH (21:59)
[2019-05-30] MEDS: APIXABAN 5 MG TABLET PO SCH (21:59)
[2019-05-30] MEDS ORDERED: ATORVASTATIN CALCIUM 40 MG TABLET PO SCH (22:00)
[2019-05-30] MEDS ORDERED: (PENDING PHARMACY ID) (Trazodone Hcl [Trazodone Hcl] 1 TAB) PO SCH (22:00)
[2019-05-31] MEDS: GABAPENTIN 300 MG CAPSULE PO SCH ×3 (02:00→14:05)
[2019-05-31] MEDS: CEFOXITIN SODIUM 2 GM in DEXTROSE 5%-WATER 100 ML IV SCH (02:01)
[2019-05-31] MEDS: MORPHINE SULFATE 10 MG/ML INJ IV PRN (07:47)
[2019-05-31] MEDS: METFORMIN HCL 500 MG TABLET PO SCH (07:47)
[2019-05-31] MEDS: FAMOTIDINE INJ/PF 20 MG/2 ML SDV IV SCH (09:41)
[2019-05-31] MEDS: APIXABAN 5 MG TABLET PO SCH (09:42)
[2019-05-31] MEDS: DOCUSATE SODIUM 100 MG CAPSULE PO SCH (09:42)
[2019-05-31] MEDS: DEXTROSE 5%-LACTATED RINGERS 1,000 ML IV PRN (09:43)
[2019-05-31] MEDS: BUPROPION HCL 100 MG TABLET PO SCH (09:43)
[2019-05-31] MEDS: CILOSTAZOL 100 MG TABLET PO SCH (09:52)
[2019-05-31] MEDS ORDERED: TAMSULOSIN HCL 0.4 MG CAP.SR.24H PO SCH (10:00)
[2019-05-31] MEDS ORDERED: FLUTICASONE NASAL SPRAY 50 MCG/SPRY 120 SPRAY/16 GM NAREB SCH (10:00)
[2019-05-31] MEDS ORDERED: FUROSEMIDE 20 MG TABLET PO SCH ×2 (10:00)
[2019-05-31] MEDS ORDERED: FOLIC ACID 1 MG TABLET PO SCH (10:00)
[2019-05-31] MEDS ORDERED: (PENDING PHARMACY ID) (Loratadine [Claritin] 10 MG) PO SCH (10:00)
[2019-05-31] MEDS ORDERED: (PENDING PHARMACY ID) (Alfuzosin Hcl [Alfuzosin Hcl Er] 10 MG) PO SCH (10:00)
[2019-05-31] MEDS ORDERED: (PENDING PHARMACY ID) (Rosuvastatin Calcium [Crestor 20 Mg Tablet] 20 MG) PO SCH (10:00)
--- NOTE | 2019-05-31 15:03 | PDOC DISCHARGE SUMMARY ---
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 Patient was taken to the operating room where transanal resection of the carcinoid tumor was performed robotically (TAMIS procedure). The patient did very well from surgery. He did not have any bleeding from the rectum after surgery. On postoperative day #1 the patient was ambulating, tolerating a diet, and it was felt that he had reached maximal hospital benefit and was fit for discharge. - Additional Information Resuscitation Status: Full Code Discharge Diet: As Tolerated Discharge Activity: No Lifting Over 10 Pounds, No Lifting/Push/Pulling Referrals: CYN THOMAS PA-C [Primary Care Provider] - Home Medications: Alfuzosin HCl [Alfuzosin HCl ER] 10 mg PO DAILY 05/30/19 Apixaban [Eliquis 5 mg Tablet] 5 mg PO Q12 05/30/19 Bupropion HCl [Wellbutrin 100 mg Tablet] 100 mg PO Q12 05/30/19 Cilostazol [Pletal 100 mg Tablet] 100 mg PO BID 05/30/19 Folic Acid [Folvite 1 mg Tablet] 1 mg PO DAILY 05/30/19 Furosemide [Lasix 20 mg Tablet] 20 mg PO DAILY 05/30/19 Gabapentin [Neurontin] 600 mg PO Q6 05/30/19 Metformin HCl [Glucophage 500 mg Tablet] 500 mg PO BIDBS 05/30/19 Methocarbamol [Robaxin 750 mg Tablet] 750 mg PO Q6HP PRN 05/30/19 Oxycodone HCl/Acetaminophen [Percocet 10-325 mg Tablet] 1 tab PO Q6HP PRN 05/30/19 Rosuvastatin Calcium [Crestor 20 mg Tablet] 20 mg PO DAILY 05/30/19 Additional Information: Discharge home. Diet as tolerated. Activity: Nonstrenuous. Follow-up with me in 7 to 10 days. Resume home medications as previously prescribed. History of Present Illiness History of Present Illness: VANGIE MENDOZA is a 73 year old male Physical Exam Vital Signs: Temp Pulse Resp BP Pulse Ox 98.2 F 87 16 144/79 H 95 05/31/19 08:22 05/31/19 08:22 05/31/19 08:22 05/31/19 08:22 05/31/19 08:22 Intake & Output 05/30/19 05/31/19 06/01/19 06:59 06:59 06:59 Intake Total 1000 7614 1000 Output Total 2110 Balance 1000 5504 1000 Weight 72.57 kg 74.6 kg Results Laboratory Results: WBC 8.2 10^3/uL (4.0-10.5) 05/23/19 09:16 RBC 4.86 10^6/uL (4.35-5.55) 05/23/19 09:16 Hgb 15.7 g/dL (13.5-17.0) 05/23/19 09:16 Hct 46.0 % (37.9-51.0) 05/23/19 09:16 MCV 95 fl (80-97) 05/23/19 09:16 MCH 32.2 pg (27.0-33.4) 05/23/19 09:16 MCHC 34.0 g/dL (32.0-36.0) 05/23/19 09:16 RDW 15.6 % (11.5-14.0) H 05/23/19 09:16 Plt Count 195 10^3/uL (150-450) 05/23/19 09:16 PT 12.8 SEC (11.4-15.4) 05/30/19 06:42 INR 0.96 05/30/19 06:42 APTT 31.9 SEC (23.5-35.8) 05/30/19 06:42 Sodium 131.8 mmol/L (137-145) L 05/23/19 09:16 Potassium 3.8 mmol/L (3.6-5.0) 05/23/19 09:16 Chloride 96 mmol/L (98-107) L 05/23/19 09:16 Carbon Dioxide 29 mmol/L (22-30) 05/23/19 09:16 Anion Gap 7 (5-19) 05/23/19 09:16 BUN 13 mg/dL (7-20) 05/23/19 09:16 Creatinine 0.66 mg/dL (0.52-1.25) 05/23/19 09:16 Est GFR ( Amer) > 60 (>60) 05/23/19 09:16 Est GFR (MDRD) Non-Af > 60 (>60) 05/23/19 09:16 Glucose 79 mg/dL (75-110) 05/23/19 09:16 POC Glucose 77 mg/dL (70-110) 05/30/19 06:53 Calcium 8.7 mg/dL (8.4-10.2) 05/23/19 09:16
[2019-05-31 20:03] VITALS: BP 111/62
--- NOTE | 2019-06-02 08:06 | Operative Report ---
Nonrecallable Operative Report DATE OF SURGERY: 05/30/19 PREOPERATIVE DIAGNOSIS: Neuroendocrine (carcinoid) tumor of the rectum, incompletely excised on colonoscopy. POSTOPERATIVE DIAGNOSIS: Same as above OPERATION: Robot-assisted laparoscopic transanal excision of rectal tumor (RTAMIS). SURGEON: COSTA IRBY 1ST ADMISSIONS SPECIALIST: TITA MITCHELL ANESTHESIA: GA TISSUE REMOVED OR ALTERED: Portion of rectum, containing residual scar from endoscopic resection of carcinoid tumor. COMPLICATIONS: None apparent ESTIMATED BLOOD LOSS: Minimal PROCEDURE: Drains/implants: None. Procedure in detail: After informed consent was obtained, the patient was brought to the operating room and laid in the lithotomy position. The robot was brought over the patient. The gel point rectal retractor was inserted into the anus. Next, robotic trochars were placed into the gel point and the gel point was assembled and attached to the patient. The robot was then docked to the trochars. Pneumo-rectum was achieved. I assumed my position at the surgeon's console. The scar from previous endoscopic resection was easily identified, as well as the ink marker. 1 cm was marked circumferentially around the area of the tumor. Using electrocautery and sharp dissection full-thickness resection of the wall of the rectum was undertaken. Hemostasis was achieved using monopolar and bipolar cautery. Once the resected area was freed, it was removed from the patient, maintaining its orientation. It was marked on the back table with sutures. It was then inspected. The distal margin appeared slightly closer than I was comfortable with. Secondary to this, an additional distal margin was taken. Next, attention was turned to closure of the defect. Full-thickness bites were taken. 2-0 V Lock Suture was used to close the defect, beginning laterally and working medially. This required 2 sutures. O nce the defect was closed with overlapping V lock sutures, the repair was inspected. It appeared to be in good order. Next, the robot was undocked, the gel point was removed, and the procedure was concluded. All sponge, instrument, and needle counts were correct x2. Condition: Stable. Tita Mitchell PA-C was scrubbed and present the entirety the procedure. She assisted with all portions of the procedure including docking of the robot, placement of the gel point retractor, exchanging of the robotic instruments.
== END 2019-05-31 15:49 | disposition home or self-care (01) ==
LOC: OROUT 05:32 → EDSTATUS 07:30 → OROUT 09:36 → 5 09:37
PROVIDERS: ADMIT Surgery; ATTEND Surgery
PROC: 8E0W8CZ Robotic Assisted Procedure of Trunk Region, Via Natural or Artificial Opening Endoscopic (ICD-10-PCS; 2019-05-30)
PROC: 0DBP8ZX Excision of Rectum, Via Natural or Artificial Opening Endoscopic, Diagnostic (ICD-10-PCS; principal; 2019-05-30 07:30)
DX: D3A.026 Benign carcinoid tumor of the rectum (principal); Z01.818 Encounter for other preprocedural examination; I48.91 Unspecified atrial fibrillation; K21.9 Gastro-esophageal reflux disease without esophagitis; H40.9 Unspecified glaucoma; E03.9 Hypothyroidism, unspecified; E78.5 Hyperlipidemia, unspecified; M19.90 Unspecified osteoarthritis, unspecified site; E11.51 Type 2 diabetes mellitus with diabetic peripheral angiopathy without gangrene; F17.290 Nicotine dependence, other tobacco product, uncomplicated; I25.10 Atherosclerotic heart disease of native coronary artery without angina pectoris; Z92.29 Personal history of other drug therapy; Z79.02 Long term (current) use of antithrombotics/antiplatelets; Z79.899 Other long term (current) drug therapy; Z79.84 Long term (current) use of oral hypoglycemic drugs; Z95.5 Presence of coronary angioplasty implant and graft; Z85.820 Personal history of malignant melanoma of skin
CPT/HCPCS: 45172; S2900; 36415; 80048; 82962; 85027; 85610; 85730; 88304; 902; 93005; 93010; 94799; G0378; J0330; J0694; J1100; J1741; J2250; J2270; J2370; J2405; J2704; J3010; J3490; J7050; J7060; J7121; S0028

== ENCOUNTER 2019-06-19 12:13 | Emergency (ER) | payer MEDICARE, OTHER ==
--- NOTE | 2019-06-19 12:23 | ER Document Report ---
ED Medical Screen (RME) - General Chief Complaint: Urinary Problem Stated Complaint: UNABLE TO URINATE Time Seen by Provider: 06/19/19 12:20 Primary Care Provider: CYN THOMAS PA-C [Primary Care Provider] - Follow up as needed Mode of Arrival: Ambulatory Information source: Patient Notes: 73-year-old male presented to ED for complaint of pain with urination. He states he has frequent little dribbles but not a real urination. He states he also has pelvic pain. He states his urologist was talked about putting a catheter for 3 months ago but then he started urinating without trouble so they did not place it. States the pain is having now is much worse than it was 3 months ago. He states his urologist is Dr. Perry out of [facility]. I have greeted and performed a rapid initial assessment of this patient. A comprehensive ED assessment and evaluation of the patient, analysis of test results and completion of medical decision making process will be conducted by an additional ED providers. TRAVEL OUTSIDE OF THE [place] IN LAST 30 DAYS: No - Related Data Allergies/Adverse Reactions: Penicillins Allergy (Mild, Verified 06/19/19 12:19) Nausea Past Medical History - Past Medical History Cardiac Medical History: Reports: Hx Atrial Fibrillation, Hx Congestive Heart Failure, Hx Coronary Artery Disease, Hx Hypertension Denies: Hx Heart Attack Pulmonary Medical History: Denies: Hx Asthma, Hx Bronchitis, Hx COPD, Hx Pneumonia Neurological Medical History: Denies: Hx Cerebrovascular Accident, Hx Seizures Endocrine Medical History: Reports: Hx Diabetes Mellitus Type 2 Renal/ Medical History: Denies: Hx Peritoneal Dialysis GI Medical History: Denies: Hx Hepatitis, Hx Hiatal Hernia, Hx Ulcer Musculoskeltal Medical History: Reports Hx Arthritis Psychiatric Medical History: Reports: Hx Depression, Hx Post Traumatic Stress Disorder Infectious Medical History: Denies: Hx Hepatitis Past Surgical History: Reports: Hx Cardiac Catheterization - stents, Hx Coronary Stent, Hx Open Heart Surgery - STENT LATE , Hx Orthopedic Surgery. Denies: Hx Pacemaker - Immunizations Immunizations up to date: Yes Hx Diphtheria, Pertussis, Tetanus Vaccination: Yes Physical Exam - Vital signs Vitals: Temp Pulse Resp BP Pulse Ox 98.3 F 88 22 H 136/62 H 98 06/19/19 12:18 06/19/19 12:18 06/19/19 12:18 06/19/19 12:18 06/19/19 12:18 Course - Vital Signs Vital signs: Temp Pulse Resp BP Pulse Ox 98.3 F 88 22 H 136/62 H 98 06/19/19 12:18 06/19/19 12:18 06/19/19 12:18 06/19/19 12:18 06/19/19 12:18 Doctor's Discharge - Discharge Referrals: CYN THOMAS PA-C [Primary Care Provider] - Follow up as needed
[2019-06-19] MEDS ORDERED: LIDOCAINE 2% URO-JET 5 ML KIT MM ONE (12:46)
--- NOTE | 2019-06-19 12:50 | ER Document Report ---
ED General - General Chief Complaint: Urinary Problem Stated Complaint: UNABLE TO URINATE Time Seen by Provider: 06/19/19 12:20 Primary Care Provider: CYN THOMAS PA-C [Primary Care Provider] - Follow up as needed Mode of Arrival: Ambulatory TRAVEL OUTSIDE OF THE [place] IN LAST 30 DAYS: No - HPI Notes: Patient is a 73-year-old male who presents complaining of urinary frequency, voiding small amounts, feeling of incomplete void there is been ongoing for last couple years, but worsened over the past 3 months. Patient states that he did speak with his urologist previously who thought about putting a Magaña catheter in, but they were waiting a little while longer. Patient states that he is having suprapubic pressure as well. He is otherwise able to eat and drink without difficulty. He is having normal bowel movements. No other concerns or complaints. Denies any headache, fever, neck pain, URI, sore throat, chest pain, palpitations, syncope, cough, shortness of breath, wheeze, dyspnea, abdominal pain, nausea/vomiting/diarrhea, back pain, numbness/tingling, saddle anesthesia, muscle paralysis/weakness, or rash. - Related Data Allergies/Adverse Reactions: Penicillins Allergy (Mild, Verified 06/19/19 12:19) Nausea Home Medications: Patient states "you should have a list of them, I am on 31 medications and vitamins" Past Medical History - General Information source: Patient - Social History Smoking Status: Current Every Day Smoker Chew tobacco use (# tins/day): No Frequency of alcohol use: History alcohol abuse, stopped 1 month ago Drug Abuse: None Family History: Reviewed & Not Pertinent Patient has suicidal ideation: No Patient has homicidal ideation: No - Past Medical History Cardiac Medical History: Reports: Hx Atrial Fibrillation, Hx Congestive Heart Failure, Hx Coronary Artery Disease, Hx Hypertension Denies: Hx Heart Attack Pulmonary Medical History: Denies: Hx Asthma, Hx Bronchitis, Hx COPD, Hx Pneumonia Neurological Medical History: Denies: Hx Cerebrovascular Accident, Hx Seizures Endocrine Medical History: Reports: Hx Diabetes Mellitus Type 2 Renal/ Medical History: Denies: Hx Peritoneal Dialysis GI Medical History: Denies: Hx Hepatitis, Hx Hiatal Hernia, Hx Ulcer Musculoskeletal Medical History: Reports Hx Arthritis Psychiatric Medical History: Reports: Hx Depression, Hx Post Traumatic Stress Disorder Infectious Medical History: Denies: Hx Hepatitis Past Surgical History: Reports: Hx Cardiac Catheterization - stents, Hx Coronary Stent, Hx Open Heart Surgery - STENT LATE 90'S, Hx Orthopedic Surgery. Denies: Hx Pacemaker - Immunizations Immunizations up to date: Yes Hx Diphtheria, Pertussis, Tetanus Vaccination: Yes Hx Pneumococcal Vaccination: 07/20/16 Review of Systems - Review of Systems -: Yes All other systems reviewed and negative Physical Exam - Vital signs Vitals: Temp Pulse Resp BP Pulse Ox 98.3 F 88 22 H 136/62 H 98 06/19/19 12:18 06/19/19 12:18 06/19/19 12:18 06/19/19 12:18 06/19/19 12:18 - Notes Notes: PHYSICAL EXAMINATION: GENERAL: Well-appearing, well-nourished and in no acute distress. LUNGS: Breath sounds clear to auscultation bilaterally and equal. No wheezes rales or rhonchi. HEART: Regular rate and rhythm without murmurs, rubs, gallops. ABDOMEN: Soft, nontender, nondistended abdomen. No guarding, no rebound. Normal bowel sounds present. No CVA tenderness bilaterally. Pt felt 'pressure' when I palpated near his bladder, but no sharp pain. Musculoskeletal: FROM to passive/active. Strength 5+/5. Extremities: No cyanosis, clubbing, or edema b/l. Peripheral pulses 2+. Ca pillary refill less than 3 seconds. NEUROLOGICAL: Normal speech, normal gait. PSYCH: Normal mood, normal affect. SKIN: Warm, Dry, normal turgor, no rashes or lesions noted. Course - Re-evaluation Re-evalutation: 06/19/19 12:49 Pt unable to provide us with any voluntary urine. We will place magaña and check basic labs. We will leave magaña in place if abundant urine obtained. Pt in agreement with plan. 06/19/19 13:43 Patient is an afebrile, well-hydrated, 73-year-old male who presents with urinary retention. Vitals are acceptable without any significant tachycardia, tachypnea, or hypoxia. PE is otherwise unremarkable. Patient is nontoxic- appearing and is tolerating p.o. without difficulty. Patient was unable to pro duce any urine force today, had been dribbling frequently prior to arrival. A Magaña catheter was inserted and more than 350cc's was expressed. Patient states that he is feeling much better and had significant relief after he removed the retained urine. CBC, CMP, urinalysis unremarkable. No further work-up warranted. We will leave the Magaña catheter in place until he sees his urologist this week. Low suspicion/risk for acute appendicitis, bowel obstruction, acute cholecystitis, perforated diverticulitis, incarcerated hernia, pancreatitis, perforated ulcer, peritonitis, sepsis, testicular torsion, or other systemic emergent condition at this time. Patient is aware that his condition can change from initial presentation and he needs to monitor symptoms closely and seek medical attention if any acute changes. Conservative measures otherwise for symptoms. Recheck with PCM in 3-5 days. Call your urologist tomorrow. Return to the ED with any worsening/concerning symptoms otherwise as reviewed in discharge. Patient is in agreement. - Vital Signs Vital signs: Temp Pulse Resp BP Pulse Ox 98.3 F 88 22 H 136/62 H 98 06/19/19 12:18 06/19/19 12:18 06/19/19 12:18 06/19/19 12:18 06/19/19 12:18 - Laboratory Result Diagrams: 06/19/19 12:50 06/19/19 12:50 Laboratory results interpreted by me: 06/19/19 06/19/19 12:50 12:50 RDW 15.3 H Sodium 135.6 L AST 15 L Albumin 3.4 L Discharge - Discharge Clinical Impression: Urinary retention Condition: Stable Disposition: HOME, SELF-CARE Additional Instructions: We will leave the Mag[place] catheter in place until you see your urologist, call them tomorrow. Maintain fluids (i.e. water) Proper hygenic technique Keep the skin clean Tylenol/ibuprofen as needed F/u with your PCM in 3-5 days for a recheck Call your urologist tomorrow to schedule appointment for further evaluation and management Return to the ED with any worsening symptoms and/or development of fever, headache, chest pain, palpitations, syncope, shortness of breath, trouble breathing, abdominal pain, n/v/d, blood in stool/urine, loss of control of bowel/bladder, urinary retention, or other worsening symptoms that are concerning to you. Forms: Elevated Blood Pressure, Smoking Cessation Education Referrals: CYN THOMAS PA-C [Primary Care Provider] - Follow up as needed [facility] [Provider Group] - Follow up as needed
[2019-06-19 13:05] LABS: ABSOLUTE EOSINOPHILS # (AUTO) 0.3 10^3/uL (0.0-0.6); ABSOLUTE LYMPHOCYTES (AUTO) 1.3 10^3/uL (0.5-4.7); ABSOLUTE MONOCYTES (AUTO) 0.8 10^3/uL (0.1-1.4); ABSOLUTE NEUT (AUTO) 5.9 10^3/uL (1.7-8.2); BASOPHILS % (AUTO) 0.5 % (0-2); EOSINOPHILS % (AUTO) 3.7 % (0-6); HEMATOCRIT 45.6 % (37.9-51.0); HEMOGLOBIN 15.4 g/dL (13.5-17.0); LYMPHOCYTES % (AUTO) 15.1 % (13-45); MEAN CORPUSCULAR HEMOGLOBIN 32.3 pg (27.0-33.4); MEAN CORPUSCULAR HGB CONC 33.8 g/dL (32.0-36.0); MEAN CORPUSCULAR VOLUME 96 fl (80-97); PLATELET COUNT 226 10^3/uL (150-450); RED BLOOD COUNT 4.77 10^6/uL (4.35-5.55); RED CELL DISTRIBUTION WIDTH 15.3 % (11.5-14.0); SEGMENTED NEUTROPHILS % (AUTO) 70.7 % (42-78); TOTAL CELLS COUNTED % (AUTO) 100 %; WHITE BLOOD COUNT 8.4 10^3/uL (4.0-10.5)
[2019-06-19 13:22] LABS: ALBUMIN 3.4 g/dL (3.5-5.0); ALKALINE PHOSPHATASE 101 U/L (38-126); ANION GAP 7 (5-19); ASPARTATE AMINO TRANSFERASE 15 U/L (17-59); BILIRUBIN,DIRECT 0.1 mg/dL (0.0-0.4); BILIRUBIN,TOTAL 0.4 mg/dL (0.2-1.3); BLOOD UREA NITROGEN 13 mg/dL (7-20); CALCIUM 8.8 mg/dL (8.4-10.2); CARBON DIOXIDE 27 mmol/L (22-30); CHLORIDE 102 mmol/L (98-107); GLUCOSE 99 mg/dL (75-110); POTASSIUM 3.7 mmol/L (3.6-5.0); TOTAL PROTEIN 6.4 g/dL (6.3-8.2)
[2019-06-19 13:35] LABS: APPEARANCE,URINE CLEAR; BILIRUBIN,URINE NEGATIVE (NEGATIVE); COLOR,URINE YELLOW; GLUCOSE, URINE NEGATIVE (NEGATIVE); KETONES,URINE NEGATIVE (NEGATIVE); PROTEIN,URINE NEGATIVE (NEGATIVE); URINE SPECIFIC GRAVITY 1.011; UROBILINOGEN,URINE NEGATIVE mg/dL (<2.0)
[2019-06-19 14:11] VITALS: BP 128/64
== END 2019-06-19 14:12 | disposition home or self-care (01) ==
LOC: ER 12:13
DX: R33.9 Retention of urine, unspecified (principal); R35.0 Frequency of micturition; I25.10 Atherosclerotic heart disease of native coronary artery without angina pectoris; I10 Essential (primary) hypertension; E11.9 Type 2 diabetes mellitus without complications; F17.200 Nicotine dependence, unspecified, uncomplicated; Z79.899 Other long term (current) drug therapy; Z88.0 Allergy status to penicillin
CPT/HCPCS: 99283; 51702; 36415; 85025; 80053; 81001; A9270; J3490

== ENCOUNTER 2019-06-27 11:01 | Emergency (ER) | payer MEDICARE, OTHER ==
--- NOTE | 2019-06-27 11:37 | ER Document Report ---
ED Medical Screen (RME) - General Chief Complaint: Problem with Urinary Catheter Stated Complaint: CATHADER CHECK Time Seen by Provider: 06/27/19 11:30 Primary Care Provider: CYN THOMAS PA-C [Primary Care Provider] - Follow up as needed Mode of Arrival: Ambulatory Information source: Patient Notes: Patient presents stating that he has had a Posey catheter in for the past 8 days. Patient feels as though the catheter is blocked as he is leaking urine around it 3 separate occasions. Patient denies any fever abdominal or back pain. Patient denies any nausea or vomiting. Patient is supposed to have Posey catheter removed of this week. I have greeted and performed a rapid initial assessment of this patient. A comprehensive ED assessment and evaluation of the patient, analysis of test results and completion of the medical decision making process will be conducted by additional ED providers. TRAVEL OUTSIDE OF THE [place] IN LAST 30 DAYS: No - Related Data Allergies/Adverse Reactions: Penicillins Adverse Reaction (Mild, Verified 06/27/19 11:30) Nausea Past Medical History - Social History Chew tobacco use (# tins/day): No Frequency of alcohol use: None Drug Abuse: None - Past Medical History Cardiac Medical History: Reports: Hx Atrial Fibrillation, Hx Congestive Heart Failure, Hx Coronary Artery Disease, Hx Hypertension Denies: Hx Heart Attack Pulmonary Medical History: Denies: Hx Asthma, Hx Bronchitis, Hx COPD, Hx Pneumonia Neurological Medical History: Denies: Hx Cerebrovascular Accident, Hx Seizures Endocrine Medical History: Reports: Hx Diabetes Mellitus Type 2 Renal/ Medical History: Denies: Hx Peritoneal Dialysis GI Medical History: Denies: Hx Hepatitis, Hx Hiatal Hernia, Hx Ulcer Musculoskeltal Medical History: Reports Hx Arthritis Psychiatric Medical History: Reports: Hx Depression, Hx Post Traumatic Stress Disorder Infectious Medical History: Denies: Hx Hepatitis Past Surgical History: Reports: Hx Cardiac Catheterization - stents, Hx Coronary Stent, Hx Open Heart Surgery - STENT LATE , Hx Orthopedic Surgery. Denies: Hx Pacemaker - Immunizations Immunizations up to date: Yes Hx Diphtheria, Pertussis, Tetanus Vaccination: Yes Physical Exam - Back Back: Normal. No: CVA tenderness Doctor's Discharge - Discharge Referrals: CYN THOMAS PA-C [Primary Care Provider] - Follow up as needed
[2019-06-27 13:11] LABS: ADD MANUAL MICROSCOPIC YES; APPEARANCE,URINE SLIGHTLY HAZY; COLOR,URINE YELLOW
[2019-06-27 13:12] LABS: BILIRUBIN,URINE SMALL (NEGATIVE); GLUCOSE, URINE NEGATIVE (NEGATIVE); KETONES,URINE NEGATIVE (NEGATIVE)
[2019-06-27 13:13] LABS: BACTERIA,URINE 2+ /HPF; LEUKOCYTE ESTERASE,URINE SMALL (NEGATIVE); NITRITE,URINE NEGATIVE (NEGATIVE); PROTEIN,URINE 30 mg/dL (NEGATIVE); WBC,URINE 20-30 /HPF
--- NOTE | 2019-06-27 14:05 | ER Document Report ---
ED GI/ - General Chief Complaint: Problem with Urinary Catheter Stated Complaint: CATHADER CHECK Time Seen by Provider: 06/27/19 11:30 Primary Care Provider: CYN THOMAS PA-C [Primary Care Provider] - Follow up as needed Mode of Arrival: Ambulatory Information source: Patient Notes: 73-year-old male presenting to emergency department requesting Posey catheter r emoval. Patient reports catheter inserted 10 days ago for acute urinary retention. He states he has an appointment this with Dr. Perry at [facility] for urology. Patient reports that he has been having leaking around the catheter and he is requesting its removal at this time. TRAVEL OUTSIDE OF THE [place] IN LAST 30 DAYS: No - Related Data Allergies/Adverse Reactions: Penicillins Adverse Reaction (Mild, Verified 06/27/19 11:30) Nausea Past Medical History - General Information source: Patient - Social History Smoking Status: Never Smoker Chew tobacco use (# tins/day): No Frequency of alcohol use: None Drug Abuse: None Family History: Reviewed & Not Pertinent Patient has suicidal ideation: No Patient has homicidal ideation: No - Past Medical History Cardiac Medical History: Reports: Hx Atrial Fibrillation, Hx Congestive Heart Failure, Hx Coronary Artery Disease, Hx Hypercholesterolemia, Hx Hypertension Denies: Hx Heart Attack Pulmonary Medical History: Denies: Hx Asthma, Hx Bronchitis, Hx COPD, Hx Pneumonia Neurological Medical History: Denies: Hx Cerebrovascular Accident, Hx Seizures Endocrine Medical History: Reports: Hx Diabetes Mellitus Type 2 Renal/ Medical History: Denies: Hx Peritoneal Dialysis GI Medical History: Denies: Hx Hepatitis, Hx Hiatal Hernia, Hx Ulcer Musculoskeletal Medical History: Reports Hx Arthritis Psychiatric Medical History: Reports: Hx Depression, Hx Post Traumatic Stress Disorder Infectious Medical History: Denies: Hx Hepatitis Past Surgical History: Reports: Hx Cardiac Catheterization - stents, Hx Coronary Stent, Hx Open Heart Surgery - STENT LATE 'S, Hx Orthopedic Surgery. Denies: Hx Pacemaker - Immunizations Immunizations up to date: Yes Hx Diphtheria, Pertussis, Tetanus Vaccination: Yes Hx Pneumococcal Vaccination: 07/20/16 Review of Systems - Review of Systems Constitutional: No symptoms reported EENT: No symptoms reported Cardiovascular: No symptoms reported Respiratory: No symptoms reported Gastrointestinal: No symptoms reported Genitourinary: No symptoms reported Male Genitourinary: No symptoms reported Musculoskeletal: No symptoms reported Skin: No symptoms reported Hematologic/Lymphatic: No symptoms reported Neurological/Psychological: No symptoms reported Physical Exam - Notes Notes: PHYSICAL EXAMINATION: GENERAL: Well-appearing, well-nourished and in no acute distress. HEAD: Atraumatic, normocephalic. EYES: Pupils equal round and reactive to light, extraocular movements intact, sclera anicteric, conjunctiva are normal. ENT: Nares patent, oropharynx clear without exudates. Moist mucous membranes. NECK: Normal range of motion, supple without lymphadenopathy LUNGS: Breath sounds clear to auscultation bilaterally and equal. No wheezes rales or rhonchi. HEART: Regular rate and rhythm without murmurs ABDOMEN: Soft, nontender, nondistended abdomen. No guarding, no rebound. No masses appreciated. No CVA tenderness. Musculoskeletal: Normal range of motion, no pitting or edema. No cyanosis. NEUROLOGICAL: Cranial nerves grossly intact. Normal speech, normal gait. Normal sensory, motor exams PSYCH: Normal mood, normal affect. SKIN: Warm, Dry, normal turgor, no rashes or lesions noted. Course - Re-evaluation Re-evalutation: 06/27/19 14:46 Posey catheter was removed. Patient was able to have a post cath removal void. Patient denies any symptoms. Patient encouraged to please keep the appointment he has with urology for . Patient invited to return to the emergency department if he develops acute urinary retention again. Patient verbalizes understanding and agreement with plan as well as ED return precautions. The patient's emergency department workup and current diagnosis were explained to the patient and or family. Follow-up instructions were provided. Medications if prescribed were discussed. Instructions for when to return to the emergency department including specific worrisome symptoms were discussed with the patient and/or family. - Laboratory Laboratory results interpreted by me: 06/27/19 12:00 Urine Protein 30 H Urine Blood MODERATE H Urine Bilirubin SMALL H Urine Urobilinogen 2.0 H Ur Leukocyte Esterase SMALL H Discharge - Discharge Clinical Impression: Encounter for Posey catheter removal Condition: Stable Disposition: HOME, SELF-CARE Additional Instructions: Your catheter was removed today. Please return to the emergency department if you develop acute urinary retention again. Please keep the follow-up appointment that you have you with your urologist scheduled for this . Referrals: CYN THOMAS PA-C [Primary Care Provider] - Follow up as needed
[2019-06-27 14:56] VITALS: BP 138/78
== END 2019-06-27 14:56 | disposition home or self-care (01) ==
LOC: ER 11:01
DX: Z46.6 Encounter for fitting and adjustment of urinary device (principal); I25.10 Atherosclerotic heart disease of native coronary artery without angina pectoris; I10 Essential (primary) hypertension; E11.9 Type 2 diabetes mellitus without complications; Z95.5 Presence of coronary angioplasty implant and graft
CPT/HCPCS: 81001; 99283

== ENCOUNTER 2019-06-28 20:36 | Emergency (ER) | payer MEDICARE, OTHER ==
[2019-06-28] MEDS ORDERED: IBUPROFEN 600 MG TABLET PO ONE (21:35)
--- NOTE | 2019-06-28 21:35 | ER Document Report ---
ED Medical Screen (RME) - General Chief Complaint: Wrist Pain Stated Complaint: WRIST PAIN Time Seen by Provider: 06/28/19 21:31 Primary Care Provider: CYN THOMAS PA-C [Primary Care Provider] - Follow up as needed Mode of Arrival: Ambulatory Notes: 73-year-old male presented to ED for injury to his right wrist. He states about an hour ago his dog was pulling him and pulled him into the hot tub he lost his balance reported off his feet and he tried to catch himself with his right hand injuring his right wrist. He states he has fractured this wrist in the past. Patient is alert oriented respirations regular nonlabored speaking in full sentences. He states he has not had anything for the pain. I have greeted and performed a rapid initial assessment of this patient. A comp rehensive ED assessment and evaluation of the patient, analysis of test results and completion of medical decision making process will be conducted by an additional ED providers. TRAVEL OUTSIDE OF THE [place] IN LAST 30 DAYS: No - Related Data Allergies/Adverse Reactions: Penicillins Adverse Reaction (Mild, Verified 06/27/19 11:30) Nausea Past Medical History - Past Medical History Cardiac Medical History: Reports: Hx Atrial Fibrillation, Hx Congestive Heart Failure, Hx Coronary Artery Disease, Hx Hypercholesterolemia, Hx Hypertension Denies: Hx Heart Attack Pulmonary Medical History: Denies: Hx Asthma, Hx Bronchitis, Hx COPD, Hx Pneumonia Neurological Medical History: Denies: Hx Cerebrovascular Accident, Hx Seizures Endocrine Medical History: Reports: Hx Diabetes Mellitus Type 2 Renal/ Medical History: Denies: Hx Peritoneal Dialysis GI Medical History: Denies: Hx Hepatitis, Hx Hiatal Hernia, Hx Ulcer Musculoskeltal Medical History: Reports Hx Arthritis Psychiatric Medical History: Reports: Hx Depression, Hx Post Traumatic Stress Disorder Infectious Medical History: Denies: Hx Hepatitis Past Surgical History: Reports: Hx Cardiac Catheterization - stents, Hx Coronary Stent, Hx Open Heart Surgery - STENT LATE S, Hx Orthopedic Surgery. Denies: Hx Pacemaker - Immunizations Immunizations up to date: Yes Hx Diphtheria, Pertussis, Tetanus Vaccination: Yes Physical Exam - Vital signs Vitals: Temp Pulse Resp BP Pulse Ox 97.8 F 74 16 91/59 L 93 06/28/19 21:14 06/28/19 21:14 06/28/19 21:14 06/28/19 21:14 06/28/19 21:14 Course - Vital Signs Vital signs: Temp Pulse Resp BP Pulse Ox 97.8 F 74 16 91/59 L 93 06/28/19 21:14 06/28/19 21:14 06/28/19 21:14 06/28/19 21:14 06/28/19 21:14 Doctor's Discharge - Discharge Referrals: CYN THOMAS PA-C [Primary Care Provider] - Follow up as needed
--- NOTE | 2019-06-28 22:25 | RADIOLOGY REPORT (SQ) ---
EXAM DESCRIPTION: XR WRIST 3 OR MORE VIEWS COMPLETED DATE/TME: 06/28/2019 21:42 CLINICAL HISTORY: 73 years, Male, pain fall injury COMPARISON: None. NUMBER OF VIEWS: 3 TECHNIQUE: 3 views right wrist LIMITATIONS: None. FINDINGS: Osteopenia. Vascular calcifications. Negative for acute fracture or dislocation. Minor degenerative change of the wrist. IMPRESSION: No acute osseous abnormality copyright 2010 [employer]- All Rights Reserved
--- NOTE | 2019-06-28 22:26 | RADIOLOGY REPORT (SQ) ---
EXAM DESCRIPTION: XR HAND 3 OR MORE VIEWS COMPLETED DATE/TME: 06/28/2019 21:42 CLINICAL HISTORY: 73 years, Male, pain fall injury COMPARISON: None. NUMBER OF VIEWS: 3 TECHNIQUE: 3 views right hand LIMITATIONS: None. FINDINGS: Osteopenia. Degenerative changes of the first CMC joint. Old healed fracture of the fifth metacarpal distally. Minor degenerative changes throughout the hand and wrist. Negative for acute fracture or dislocation. IMPRESSION: No acute osseous abnormality copyright 2010 [employer]- All Rights Reserved
[2019-06-29] MEDS ORDERED: HYDROCODONE/ACETAMINOPHEN 5-325 MG (6 TAB/ER DISP) PO PRN (02:04)
--- NOTE | 2019-06-29 02:07 | ER Document Report ---
HPI - HPI Time Seen by Provider: 06/28/19 21:31 Pain Level: 4 Context: Patient is a 73-year-old male that comes to the emergency department for chief complaint of injury to the right wrist. He states that he was pushed by the dog that he was trying to give a bath outside, he landed catching himself from falling in the tub, he landed on his right wrist mainly. Reports pain and swelling in the right wrist since that time. He denies any other injuries. He denies blood thinner use. He denies head injury. - REPRODUCTIVE Reproductive: DENIES: : Past Medical History - General Information source: Patient - Social History Smoking Status: Current Every Day Smoker Chew tobacco use (# tins/day): No Frequency of alcohol use: None Drug Abuse: None Lives with: Family Family History: Reviewed & Not Pertinent Patient has suicidal ideation: No Patient has homicidal ideation: No - Past Medical History Cardiac Medical History: Reports: Hx Atrial Fibrillation, Hx Congestive Heart Failure, Hx Coronary Artery Disease, Hx Hypercholesterolemia, Hx Hypertension Denies: Hx Heart Attack Pulmonary Medical History: Denies: Hx Asthma, Hx Bronchitis, Hx COPD, Hx Pneumonia Neurological Medical History: Denies: Hx Cerebrovascular Accident, Hx Seizures Endocrine Medical History: Reports: Hx Diabetes Mellitus Type 2 Renal/ Medical History: Denies: Hx Peritoneal Dialysis GI Medical History: Denies: Hx Hepatitis, Hx Hiatal Hernia, Hx Ulcer Musculoskeletal Medical History: Reports Hx Arthritis Psychiatric Medical History: Reports: Hx Depression, Hx Post Traumatic Stress Disorder Infectious Medical History: Denies: Hx Hepatitis Past Surgical History: Reports: Hx Cardiac Catheterization - stents, Hx Coronary Stent, Hx Open Heart Surgery - STENT LATE , Hx Orthopedic Surgery. Denies: Hx Pacemaker - Immunizations Immunizations up to date: Yes Hx Diphtheria, Pertussis, Tetanus Vaccination: Yes Hx Pneumococcal Vaccination: 07/20/16 Vertical Provider Document - CONSTITUTIONAL General Appearance: WD/WN, No Apparent Distress - Sleeping and easily aroused - INFECTION CONTROL TRAVEL OUTSIDE OF THE [place] IN LAST 30 DAYS: No - HEENT HEENT: Atraumatic, Normocephalic - NECK Neck: Normal Inspection - RESPIRATORY Respiratory: Breath Sounds Normal, No Respiratory Distress - CARDIOVASCULAR Cardiovascular: Regular Rate, Regular Rhythm - GI/ABDOMEN Gastrointestinal: Abdomen Soft, Abdomen Non-Tender. negative: Abdomen Tender - BACK Back: Normal Inspection - MUSCULOSKELETAL/EXTREMETIES Musculoskeletal/Extremeties: LILLIAM FROM, Tender - Patient is tender over the right wrist, there appears to be mild soft tissue swelling, patient has significant snuffbox tenderness as well. This appears to be the main area of tenderness. Normal fingers, forearm, elbow, shoulder exam. Normal distal neurovascular exam. - NEURO Level of Consciousness: Awake, Alert, Appropriate Motor/Sensory: No Motor Deficit, No Sensory Deficit - DERM Integumentary: Warm, Dry, No Rash Course - Re-evaluation Re-evalutation: X-ray is negative, however patient's mechanism and exam are concerning for scaphoid fracture with positive snuffbox tenderness. No signs of compartment syndrome or concerning injuries otherwise. Placed in immobilization with thumb spica, discussed orthopedic follow-up and return precautions. Patient states understanding and agreement. - Vital Signs Vital signs: Temp Pulse Resp BP Pulse Ox 97.8 F 74 16 95/52 L 93 06/28/19 21:31 06/28/19 21:14 06/28/19 21:31 06/28/19 21:37 06/28/19 21:31 - Diagnostic Test Radiology reviewed: Image reviewed, Reports reviewed Procedures - Immobilization Right wrist Pre-Proc Neuro Vasc Exam: Normal Immobilizer type: Thumb spica Performed by: PCT Post-Proc Neuro Vasc Exam: Normal Alignment checked and good: Yes Discharge - Discharge Clinical Impression: Right wrist injury Qualifiers: Encounter type: initial encounter Qualified Code(s): S69.91XA - Unspecified injury of right wrist, hand and finger(s), initial encounter Condition: Stable Disposition: HOME, SELF-CARE Additional Instructions: Your x-rays are negative but your examination is very concerning for an injury/fracture to the scaphoid bone, as result please wear the splint, take your pain medication, call the orthopedics tomorrow for close follow-up and additional management. Return for any concerning symptoms including severe increased falling or pain. Referrals: FELI MINOR MD [ACTIVE STAFF] - Follow up tomorrow
[2019-06-29 02:42] VITALS: BP 114/57
== END 2019-06-29 02:44 | disposition home or self-care (01) ==
LOC: ER 20:36
PROC: 2W3CX1Z Immobilization of Right Lower Arm using Splint (ICD-10-PCS; principal; 2019-06-28)
DX: S69.91XA Unspecified injury of right wrist, hand and finger(s), initial encounter (principal); M25.531 Pain in right wrist; M79.89 Other specified soft tissue disorders; W19.XXXA Unspecified fall, initial encounter; F17.200 Nicotine dependence, unspecified, uncomplicated; I50.9 Heart failure, unspecified; I25.10 Atherosclerotic heart disease of native coronary artery without angina pectoris; I11.0 Hypertensive heart disease with heart failure; E11.9 Type 2 diabetes mellitus without complications
CPT/HCPCS: 99283; 73130; 73110; 29125; A9270 ×2

== ENCOUNTER 2019-07-18 14:53 | Emergency (ER) | payer MEDICARE, OTHER ==
--- NOTE | 2019-07-18 17:07 | ER Document Report ---
ED Medical Screen (RME) - General Chief Complaint: Feet Swelling Stated Complaint: ANKLE PAIN Time Seen by Provider: 07/18/19 17:02 Primary Care Provider: FELI ASIF PA [Primary Care Provider] - Follow up as needed Mode of Arrival: Ambulatory Information source: Patient Notes: 73-year-old male with history of cardiac disease presents emergency department with complaints of bilateral ankle swelling for the past 3 days. Reports this is a new symptom. Reports he went to physical therapy and they did not see him because of the swelling. Patient has +4 pitting edema to his left ankle +2-3 to the right. He denies chest pain. Denies shortness of breath. Reports he is taking Lasix morning and night. Reports he is voiding without problems. I have greeted and performed a rapid initial assessment of this patient. A comprehensive ED assessment and evaluation of the patient, analysis of test results and completion of the medical decision making process will be conducted by additional ED providers. TRAVEL OUTSIDE OF THE [place] IN LAST 30 DAYS: No - Related Data Allergies/Adverse Reactions: No Known Allergies Allergy (Verified 07/18/19 17:00) Past Medical History - Past Medical History Cardiac Medical History: Reports: Hx Atrial Fibrillation, Hx Congestive Heart Failure, Hx Coronary Artery Disease, Hx Hypercholesterolemia, Hx Hypertension Denies: Hx Heart Attack Pulmonary Medical History: Denies: Hx Asthma, Hx Bronchitis, Hx COPD, Hx Pneumonia Neurological Medical History: Denies: Hx Cerebrovascular Accident, Hx Seizures Endocrine Medical History: Reports: Hx Diabetes Mellitus Type 2 Renal/ Medical History: Denies: Hx Peritoneal Dialysis GI Medical History: Denies: Hx Hepatitis, Hx Hiatal Hernia, Hx Ulcer Musculoskeltal Medical History: Reports Hx Arthritis Psychiatric Medical History: Reports: Hx Depression, Hx Post Traumatic Stress Disorder Infectious Medical History: Denies: Hx Hepatitis Past Surgical History: Reports: Hx Cardiac Catheterization - stents, Hx Coronary Stent, Hx Open Heart Surgery - STENT LATE 'S, Hx Orthopedic Surgery. Denies: Hx Pacemaker - Immunizations Immunizations up to date: Yes Hx Diphtheria, Pertussis, Tetanus Vaccination: Yes Physical Exam - Vital signs Vitals: Temp Pulse Resp BP Pulse Ox 98.8 F 90 20 98/47 L 92 07/18/19 15:01 07/18/19 15:01 07/18/19 15:01 07/18/19 15:01 07/18/19 15:01 Course - Vital Signs Vital signs: Temp Pulse Resp BP Pulse Ox 98.8 F 90 20 98/47 L 92 07/18/19 15:01 07/18/19 15:01 07/18/19 15:01 07/18/19 15:01 07/18/19 15:01 Doctor's Discharge - Discharge Referrals: FELI ASIF PA [Primary Care Provider] - Follow up as needed
--- NOTE | 2019-07-18 17:38 | RADIOLOGY REPORT (SQ) ---
EXAM DESCRIPTION: CHEST 2 VIEWS COMPLETED DATE/TIME: 07/18/2019 5:26 pm REASON FOR STUDY: hx CAD, Ankles swelling COMPARISON: 03/15/2019 TECHNIQUE: Frontal and lateral radiographic views of the chest acquired. NUMBER OF VIEWS: Two view. LIMITATIONS: None. FINDINGS: LUNGS AND PLEURA: No pneumothorax. No consolidation or pleural effusion. MEDIASTINUM AND HILAR STRUCTURES: Stable. HEART AND VASCULAR STRUCTURES: Stable. BONES: No acute findings. HARDWARE: None in the chest. OTHER: No other significant finding. IMPRESSION: NO ACUTE FINDINGS. TECHNICAL DOCUMENTATION: JOB ID: [id number] 2010 [employer]- All Rights Reserved Reading location - IP/workstation name: [email or web address]
[2019-07-18 18:21] LABS: ABSOLUTE EOSINOPHILS # (AUTO) 0.3 10^3/uL (0.0-0.6); ABSOLUTE LYMPHOCYTES (AUTO) 1.3 10^3/uL (0.5-4.7); ABSOLUTE MONOCYTES (AUTO) 0.8 10^3/uL (0.1-1.4); ABSOLUTE NEUT (AUTO) 5.7 10^3/uL (1.7-8.2); BASOPHILS % (AUTO) 0.2 % (0-2); EOSINOPHILS % (AUTO) 3.6 % (0-6); HEMATOCRIT 39.5 % (37.9-51.0); HEMOGLOBIN 13.5 g/dL (13.5-17.0); LYMPHOCYTES % (AUTO) 15.5 % (13-45); MEAN CORPUSCULAR HEMOGLOBIN 32.5 pg (27.0-33.4); MEAN CORPUSCULAR HGB CONC 34.2 g/dL (32.0-36.0); MEAN CORPUSCULAR VOLUME 95 fl (80-97); MONOCYTES % (AUTO) 9.7 % (3-13); PLATELET COUNT 252 10^3/uL (150-450); RED BLOOD COUNT 4.16 10^6/uL (4.35-5.55); RED CELL DISTRIBUTION WIDTH 15.5 % (11.5-14.0); TOTAL CELLS COUNTED % (AUTO) 100 %; WHITE BLOOD COUNT 8.1 10^3/uL (4.0-10.5)
[2019-07-18 18:38] LABS: ALBUMIN 3.5 g/dL (3.5-5.0); ALKALINE PHOSPHATASE 113 U/L (38-126); ANION GAP 13 (5-19); ASPARTATE AMINO TRANSFERASE 25 U/L (17-59); BILIRUBIN,DIRECT 0.3 mg/dL (0.0-0.4); BILIRUBIN,TOTAL 0.7 mg/dL (0.2-1.3); BLOOD UREA NITROGEN 34 mg/dL (7-20); CARBON DIOXIDE 32 mmol/L (22-30); CHLORIDE 91 mmol/L (98-107); GLUCOSE 96 mg/dL (75-110); POTASSIUM 3.9 mmol/L (3.6-5.0); TOTAL PROTEIN 6.8 g/dL (6.3-8.2)
[2019-07-18 18:50] LABS: NT PRO BNP 184 pg/mL (<125)
--- NOTE | 2019-07-18 18:52 | EKG REPORT ---
SEVERITY:- BORDERLINE ECG - SINUS RHYTHM SHORT VT INTERVAL, ACCELERATED AV CONDUCTION BORDERLINE LEFT AXIS DEVIATION : Confirmed by: Estuardo Riddle MD 18-Jul-2019 18:50:58
[2019-07-18 18:53] LABS: TROPONIN I < 0.012 ng/mL
[2019-07-18 19:22] VITALS: BP 133/63
--- NOTE | 2019-07-18 21:01 | ER Document Report ---
ED General - General Chief Complaint: Feet Swelling Stated Complaint: ANKLE PAIN Time Seen by Provider: 07/18/19 17:02 Primary Care Provider: FELI ASIF PA [Primary Care Provider] - Follow up as needed Mode of Arrival: Ambulatory TRAVEL OUTSIDE OF THE [place] IN LAST 30 DAYS: No - Related Data Allergies/Adverse Reactions: No Known Allergies Allergy (Verified 07/18/19 17:00) Past Medical History - General Information source: Patient - Social History Smoking Status: Current Every Day Smoker Family History: Reviewed & Not Pertinent Patient has suicidal ideation: No Patient has homicidal ideation: No - Past Medical History Cardiac Medical History: Reports: Hx Atrial Fibrillation, Hx Congestive Heart Failure, Hx Coronary Artery Disease, Hx Hypercholesterolemia, Hx Hypertension Denies: Hx Heart Attack Pulmonary Medical History: Denies: Hx Asthma, Hx Bronchitis, Hx COPD, Hx Pneumonia Neurological Medical History: Denies: Hx Cerebrovascular Accident, Hx Seizures Endocrine Medical History: Reports: Hx Diabetes Mellitus Type 2 Renal/ Medical History: Denies: Hx Peritoneal Dialysis GI Medical History: Denies: Hx Hepatitis, Hx Hiatal Hernia, Hx Ulcer Musculoskeletal Medical History: Reports Hx Arthritis Psychiatric Medical History: Reports: Hx Depression, Hx Post Traumatic Stress Disorder Infectious Medical History: Denies: Hx Hepatitis Past Surgical History: Reports: Hx Cardiac Catheterization - stents, Hx Coronary Stent, Hx Open Heart Surgery - STENT LATE , Hx Orthopedic Surgery. Denies: Hx Pacemaker - Immunizations Immunizations up to date: Yes Hx Diphtheria, Pertussis, Tetanus Vaccination: Yes Hx Pneumococcal Vaccination: 07/20/16 Physical Exam - Vital signs Vitals: Temp Pulse Resp BP Pulse Ox 98.8 F 90 20 98/47 L 92 07/18/19 15:01 07/18/19 15:01 07/18/19 15:01 07/18/19 15:01 07/18/19 15:01 - Notes Notes: Patient is emerge department planing lower extremity edema for the past 3 days. He says he has had in the past but been this bad. Does not change when he gets up in the morning. He indicates he will take an extra dose of Lasix couple days ago and is decrease the swelling some but not completely. He denies any chest pain or shortness of breath fevers cough nausea vomiting or abdominal pain. No orthopnea. Denies any palpitations or irregular heartbeat. This is not been lightheaded and his appetite is been good Past medical history sniffing for diabetes CHF coronary artery disease as well as atrial fibrillation. He does not know when he goes into the A. fib. Social history he does not smoke he is a history of alcohol abuse in the past Review of systems pertinent positives and negatives in HPI otherwise all the systems were reviewed and acutely negative PHYSICIAN EXAM -vital signs are noted triage note and note from triage reviewed GENERAL: Well-appearing, well-nourished and in ___initial blood pressure was noted he had no symptoms with that but repeat blood pressure 133/63___ HEAD: Atraumatic, normocephalic. EYES: Pupils equal round and reactive to light, extraocular movements intact, sclera anicteric, conjunctiva are normal. ENT: nares patent, oropharynx clear without exudates. Moist mucous membranes. NECK: supple without lymphadenopathy LUNGS: Breath sounds clear to auscultation bilaterally and equal. No wheezes rales or rhonchi. HEART: Regular rate and rhythm without murmurs no JVD ABDOMEN: Soft, nontender, normoactive bowel sounds. EXTREMITIES: No deformity, no palpable cords is got +2 edema to the midcalf is good pulses in his feet NEUROLOGICAL: No focal neurological deficits. Moves all extremities spontaneously and on command. PSYCH: Normal mood, normal affect. SKIN: Warm, Dry, normal turgor, no rashes or lesions noted. BACK-nontender in the midline Course - Re-evaluation Re-evalutation: 07/18/19 21:03 ED patient is remained stable repeat blood pressure was normal. Medical decision making patient presents with increasing lower extremity edema he has notes of CHF on his x-ray and his BNP is relatively normal. He does report that she is around a lot during the day and estimate this is the most likely cause. Think he needs more diuresis since his BUN is slightly elevated and his chloride is up. Back to his normal dose of Lasix. He is given support stockings advised to elevate his legs higher than his heart several times a day and follow-up with his family doctor in 1 week I discussed results of laboratory findings and diagnostic test with patient/family. The treatment plan was explained and I reviewed the discharge instructions with them. Questions were answered. The patient/family verbalizes understanding Advised patient to return to have the recheck his blood pressure and get him fitted for support stockings staff and back in room and patient was had left 07/18/19 21:09 07/18/19 21:22 - Vital Signs Vital signs: Temp Pulse Resp BP Pulse Ox 97.9 F 96 20 133/63 H 98 07/18/19 19:21 07/18/19 19:21 07/18/19 15:01 07/18/19 19:21 07/18/19 19:21 - Laboratory Result Diagrams: 07/18/19 17:55 07/18/19 17:55 Laboratory results interpreted by me: 07/18/19 07/18/19 07/18/19 17:55 17:55 17:55 RBC 4.16 L RDW 15.5 H Sodium 135.6 L Chloride 91 L Carbon Dioxide 32 H BUN 34 H NT-Pro-B Natriuret Pep 184 H 07/18/19 21:02 His BUN is is elevated but baseline and chloride slightly lower than baseline - EKG Interpretation by Me Additional EKG results interpreted by me: 07/18/19 21:03 EKG shows a normal sinus rhythm with some minimal nonspecific ST wave changes which can flattening of the T waves which were present back in May Discharge - Discharge Clinical Impression: Lower extremity edema Disposition: ELOPED Additional Instructions: Edema, Peripheral You have swelling in your legs. This is called peripheral edema. It can be caused by "leaky capillaries," inflammation, disease of the leg veins, or excess salt and water in your body. Edema may be a sign of heart, kidney, or liver disease. A medical evaluation can determine if there is a serious underlying cause for your edema. Avoid prolonged standing. If you must sit for a long time, occasionally get up and walk around or elevate your legs. Support stockings can be helpful in limiting swelling. Often diuretic or water pills are used to remove excess salt and water from your body. Call the doctor or return if you develop increased swelling, pain, or redness, shortness of breath, chest pain, or any other significant change. Please review the discharge instructions, they will tell you about your disease/injury and what you need to return to the ED for Return to the ED if you feel worse or can follow-up with your family doctor Elevate your legs higher than your heart to 3 times a day. Wear the support stockings all the time Go back to your regular dose of Lasix With your family doctor in 3 to 5 days if not better Referrals: FELI ASIF PA [Primary Care Provider] - Follow up as needed
== END 2019-07-18 21:22 | disposition left against medical advice (07) ==
LOC: ER 14:53
DX: R60.0 Localized edema (principal); I25.10 Atherosclerotic heart disease of native coronary artery without angina pectoris; I10 Essential (primary) hypertension; E11.9 Type 2 diabetes mellitus without complications; F17.200 Nicotine dependence, unspecified, uncomplicated; Z95.5 Presence of coronary angioplasty implant and graft; Z53.20 Procedure and treatment not carried out because of patient's decision for unspecified reasons
CPT/HCPCS: 36415; 71046; 80053; 83880; 84484; 85025; 93005; 93010; 99281

== ENCOUNTER 2019-07-26 12:52 | Emergency (ER) | payer MEDICARE, OTHER ==
[2019-07-26 13:26] LABS: ABSOLUTE BASOPHILS # (AUTO) 0.1 10^3/uL (0.0-0.2); ABSOLUTE EOSINOPHILS # (AUTO) 0.3 10^3/uL (0.0-0.6); ABSOLUTE LYMPHOCYTES (AUTO) 1.5 10^3/uL (0.5-4.7); ABSOLUTE MONOCYTES (AUTO) 0.8 10^3/uL (0.1-1.4); ABSOLUTE NEUT (AUTO) 5.4 10^3/uL (1.7-8.2); BASOPHILS % (AUTO) 1.1 % (0-2); EOSINOPHILS % (AUTO) 3.8 % (0-6); HEMATOCRIT 37.3 % (37.9-51.0); HEMOGLOBIN 12.9 g/dL (13.5-17.0); LYMPHOCYTES % (AUTO) 18.5 % (13-45); MEAN CORPUSCULAR HEMOGLOBIN 32.7 pg (27.0-33.4); MEAN CORPUSCULAR HGB CONC 34.6 g/dL (32.0-36.0); MEAN CORPUSCULAR VOLUME 95 fl (80-97); PLATELET COUNT 348 10^3/uL (150-450); RED BLOOD COUNT 3.94 10^6/uL (4.35-5.55); RED CELL DISTRIBUTION WIDTH 14.7 % (11.5-14.0); SEGMENTED NEUTROPHILS % (AUTO) 66.6 % (42-78); TOTAL CELLS COUNTED % (AUTO) 100 %; VENOUS BLOOD BASE EXCESS 6.5 mmol/L; VENOUS BLOOD HCO3 33.3 mmol/L (20-32); VENOUS BLOOD PCO2 55.2 mmHg (35-63); VENOUS BLOOD PH 7.4 (7.30-7.42); WHITE BLOOD COUNT 8.1 10^3/uL (4.0-10.5)
[2019-07-26] MEDS ORDERED: NORMAL SALINE 1000 ML 1,000 ML IV ONE ×2 (13:32)
[2019-07-26 13:36] LABS: INTERNATIONAL RATION (INR) 1.08
--- NOTE | 2019-07-26 13:36 | ER Document Report ---
ED General - General Chief Complaint: Syncope Stated Complaint: SYNCOPE Time Seen by Provider: 07/26/19 13:00 Primary Care Provider: FELI ASIF PA [NO LOCAL MD] - Follow up as needed TRAVEL OUTSIDE OF THE [place] IN LAST 30 DAYS: No - Related Data Allergies/Adverse Reactions: No Known Allergies Allergy (Verified 07/26/19 17:02) Past Medical History - Social History Smoking Status: Current Every Day Smoker Family History: Reviewed & Not Pertinent - Past Medical History Cardiac Medical History: Reports: Hx Atrial Fibrillation, Hx Congestive Heart Failure, Hx Coronary Artery Disease, Hx Hypercholesterolemia, Hx Hypertension Denies: Hx Heart Attack Pulmonary Medical History: Denies: Hx Asthma, Hx Bronchitis, Hx COPD, Hx Pneumonia Neurological Medical History: Denies: Hx Cerebrovascular Accident, Hx Seizures Endocrine Medical History: Reports: Hx Diabetes Mellitus Type 2 Renal/ Medical History: Denies: Hx Peritoneal Dialysis GI Medical History: Denies: Hx Hepatitis, Hx Hiatal Hernia, Hx Ulcer Musculoskeletal Medical History: Reports Hx Arthritis Psychiatric Medical History: Reports: Hx Depression, Hx Post Traumatic Stress Disorder Infectious Medical History: Denies: Hx Hepatitis Past Surgical History: Reports: Hx Cardiac Catheterization - stents, Hx Coronary Stent, Hx Open Heart Surgery - STENT LATE 'S, Hx Orthopedic Surgery. Denies: Hx Pacemaker - Immunizations Immunizations up to date: Yes Hx Diphtheria, Pertussis, Tetanus Vaccination: Yes Hx Pneumococcal Vaccination: 07/20/16 Physical Exam - Vital signs Vitals: Pulse Ox 94 07/26/19 12:56 Interpretation: Normal - Notes Notes: Patient is sent from PMDs office for evaluation. He was here for routine checkup and found to have a low blood pressure and falling asleep. Concerned that he might of taken too much of his pain medications or sleeping medications. Patient denies any headaches abnormal vision chest pain shortness of breath nausea vomiting abdominal pains any fevers or cough says appetite is been good and denies taking too much of his medication there is no history of syncope patient denies syncope denies any shortness of breath Past medical history a significant for diabetes coronary disease with a stent. Also has a history of chronic pain Social history smokes but does not drink. Review of systems pertinent positives and negatives in HPI otherwise all the systems were reviewed and acutely negative PHYSICIAN EXAM -vital signs are noted triage note and note from triage reviewed blood pressure was noted he does have good radial pulses GENERAL: Well-appearing, well-nourished and in _no acute distress HEAD: Atraumatic, normocephalic. EYES: Pupils equal round and reactive to light, extraocular movements intact, sclera anicteric, conjunctiva are normal. ENT: nares patent, oropharynx clear without exudates. Dry mucous membranes. NECK: supple without lymphadenopathy LUNGS: Breath sounds clear to auscultation bilaterally and equal. No wheezes rales or rhonchi. HEART: Regular rate and rhythm without murmurs ABDOMEN: Soft, nontender, normoactive bowel sounds. EXTREMITIES: No deformity, trace edema no palpable cords NEUROLOGICAL: Alert and oriented x4. Cranial nerves he has symmetrical smile facies and shoulder shrug. His motor strength is 5/5 bilaterally in the upper and lower extremities. Toes downgoing. Sensation is intact to light touch is a negative Romberg PSYCH: Normal mood, normal affect. SKIN: Warm, Dry, normal turgor, no rashes or lesions noted. BACK-nontender in the midline Differential dehydration normal electrolytes unintentional overdose Course - Re-evaluation Re-evalutation: 07/26/19 18:56 ED patient is remained stable he was given a liter of normal saline. Blood pressure improved but he was still orthostatic. Was given additional 500 cc. Repeat vital signs at that point was stable he is no longer orthostatic. We can recheck the patient he was standing up for his orthostatics eating. He was given 1 dose of antibiotic here\ Medical decision making patient presents with episode of hypotension of unclear etiology says is not been eating well he was seen here the other day and reportedly was taken extra doses of his Lasix which may have contributed also. He is feeling better no longer orthostatic I see no indication for medical admission we will start the patient on cephalosporins avoid complications from fluoroquinolones At this time there is no indication for admission. I have discussed the findings with patient/family with return precautions and follow-up recommendations. Verbal discharge instructions given at the bedside and opportunity for questions given. Medication warnings were given if indicated. Patient is in agreement with this plan and has verbalized understanding of return precautions and the need for primary care follow-up as directed.. 07/26/19 19:08 - Vital Signs Vital signs: Temp Pulse Resp BP Pulse Ox 97.3 F 89 11 L 134/112 H 95 07/26/19 13:01 07/26/19 18:56 07/26/19 18:15 07/26/19 18:56 07/26/19 16:30 - Laboratory Result Diagrams: 07/26/19 13:05 07/26/19 13:05 Laboratory results interpreted by me: 07/26/19 07/26/19 07/26/19 13:05 13:05 13:05 RBC 3.94 L Hgb 12.9 L Hct 37.3 L RDW 14.7 H VBG HCO3 33.3 H Sodium 133.5 L Potassium 3.4 L Chloride 91 L Carbon Dioxide 37 H Est GFR (MDRD) Non-Af 57 L POC Glucose Direct Bilirubin 0.5 H Total Protein 6.2 L Albumin 3.0 L Leukocyte Esterase Rfl Salicylates 07/26/19 07/26/19 07/26/19 13:05 13:53 17:00 RBC Hgb Hct RDW VBG HCO3 Sodium Potassium Chloride Carbon Dioxide Est GFR (MDRD) Non-Af POC Glucose 125 H Direct Bilirubin Total Protein Albumin Leukocyte Esterase Rfl LARGE H Salicylates < 1.0 L - EKG Interpretation by Me Additional EKG results interpreted by me: 07/26/19 19:12 EKG read by me shows a normal sinus rhythm with a left axis continue supplements are normal 0.49 unchanged from previous Critical Care Note - Critical Care Note Total time excluding time spent on procedures (mins): 35 Comments: Patient sent from PMDs office for low blood pressure concern for possible overdo se. Found to be orthostatic he was fluid resuscitated cautiously with serial exams because of his history of congestive heart failure. He was given antibiotics multiple laboratory studies serial exams and multiple interventions Discharge - Discharge Clinical Impression: Dehydration UTI (urinary tract infection) Qualifiers: Urinary tract infection type: acute cystitis Hypotension Qualifiers: Hypotension type: unspecified hypotension type Qualified Code(s): I95.9 - Hypotension, unspecified Condition: Good Disposition: HOME, SELF-CARE Instructions: Urinary Tract Infection ([facility]) Additional Instructions: Dehydration Dehydration can result from vomiting or diarrhea, fever, or decreased in take of fluids. If severe, hospitalization and intravenous fluids may be required. Most cases are treated at home with fluids by mouth. For the next 24 hours, drink lots of clear fluids. In mild cases, this can be soda pop or sports drinks. For more severe dehydration, the doctor may recommend special fluids such as Pedialyte or Lytren. Try to get three liters (3 quarts) of fluid per day. If vomiting occurs, continue to drink the fluids frequently (every 15 to 20 minutes), but in small amounts (one or two ounces). Depending on the type of dehydration, the doctor may prescribe antinausea medicine or potassium replacements. Call the doctor or return for re-examination if you become progressively weak, vomit repeatedly, or have other new symptoms. Please review the discharge instructions, they will tell you about your disease/injury and what you need to return to the ED for Return to the ED if you feel worse or can follow-up with your family doctor DONT TAKE YOUR LASIX UNTIL THURSDAY Elevate your legs 2-3 times a day Follow-up with your family doctor in 2 to 3 days Prescriptions: Potassium Chloride [Klor-Con M20] 20 meq PO DAILY #30 tab.er.prt Cefdinir [Omnicef 300 mg Capsule] 1 cap PO BID #14 capsule Referrals: FELI ASIF PA [NO LOCAL MD] - Follow up as needed
[2019-07-26 13:47] LABS: ALKALINE PHOSPHATASE 100 U/L (38-126); ANION GAP 6 (5-19); ASPARTATE AMINO TRANSFERASE 24 U/L (17-59); BILIRUBIN,DIRECT 0.5 mg/dL (0.0-0.4); BILIRUBIN,TOTAL 0.6 mg/dL (0.2-1.3); BLOOD UREA NITROGEN 19 mg/dL (7-20); CALCIUM 8.7 mg/dL (8.4-10.2); CARBON DIOXIDE 37 mmol/L (22-30); CHLORIDE 91 mmol/L (98-107); GLUCOSE 105 mg/dL (75-110); POTASSIUM 3.4 mmol/L (3.6-5.0); TOTAL PROTEIN 6.2 g/dL (6.3-8.2)
--- NOTE | 2019-07-26 13:55 | RADIOLOGY REPORT (SQ) ---
EXAM DESCRIPTION: CHEST SINGLE VIEW COMPLETED DATE/TIME: 07/26/2019 1:39 pm REASON FOR STUDY: bed 16 sepsis alert COMPARISON: 07/18/2019 EXAM PARAMETERS: NUMBER OF VIEWS: One view. TECHNIQUE: Single frontal radiographic view of the chest acquired. RADIATION DOSE: NA LIMITATIONS: None. FINDINGS: LUNGS AND PLEURA: No opacities, masses or pneumothorax. No pleural effusion. MEDIASTINUM AND HILAR STRUCTURES: No masses. Contour normal. HEART AND VASCULAR STRUCTURES: Heart normal in size. Normal vasculature. BONES: No acute findings. HARDWARE: None in the chest. OTHER: No other significant finding. IMPRESSION: NO ACUTE RADIOGRAPHIC FINDING IN THE CHEST. TECHNICAL DOCUMENTATION: JOB ID: [id number] [employer]- All Rights Reserved Reading location - IP/workstation name: [email or web address]
[2019-07-26 14:04] LABS: ACETAMINOPHEN 11 ug/mL (10-30); SALICYLATE < 1.0 mg/dL (2.0-20.0)
[2019-07-26] MEDS ORDERED: NORMAL SALINE 500 ML IV ONE (15:43)
[2019-07-26] MEDS ORDERED: POTASSIUM CHLORIDE 10 MEQ TABLET.ER PO ONE (15:44)
[2019-07-26 17:27] LABS: APPEARANCE,URINE CLOUDY; BILIRUBIN,URINE NEGATIVE (NEGATIVE); COLOR,URINE AMBER; GLUCOSE, URINE NEGATIVE (NEGATIVE); KETONES,URINE NEGATIVE (NEGATIVE); PROTEIN,URINE NEGATIVE (NEGATIVE); URINE SPECIFIC GRAVITY 1.014; UROBILINOGEN,URINE NEGATIVE mg/dL (<2.0)
[2019-07-26 17:46] LABS: URINE AMPHETAMINES SCREEN NEGATIVE; URINE BARBITURATES SCREEN NEGATIVE; URINE BENZODIAZEPINES SCREEN NEGATIVE; URINE COCAINE SCREEN NEGATIVE; URINE MARIJUANA (THC) SCREEN NEGATIVE; URINE METHADONE SCREEN NEGATIVE; URINE PHENCYCLIDINE SCREEN NEGATIVE
[2019-07-26] MEDS ORDERED: CEFTRIAXONE 1 GM/D5W RTU 1 GM/50 ML RTUPB IV SCH (18:30)
[2019-07-26 18:58] VITALS: BP 134/112
[2019-07-26] MEDS ORDERED: CEFPODOXIME 200 MG TABLET PO ONE (19:14)
--- NOTE | 2019-07-26 22:42 | EKG REPORT ---
SEVERITY:- BORDERLINE ECG - SINUS RHYTHM LEFT AXIS DEVIATION BORDERLINE PROLONGED QT INTERVAL : Confirmed by: Khang Velásquez 26-Jul-2019 22:41:44
== END 2019-07-26 19:56 | disposition home or self-care (01) ==
LOC: ER 12:52
DX: I95.9 Hypotension, unspecified (principal); N30.00 Acute cystitis without hematuria; E86.0 Dehydration; R55 Syncope and collapse; I11.0 Hypertensive heart disease with heart failure; I50.9 Heart failure, unspecified; F17.200 Nicotine dependence, unspecified, uncomplicated; I25.10 Atherosclerotic heart disease of native coronary artery without angina pectoris; E11.9 Type 2 diabetes mellitus without complications; G89.29 Other chronic pain; Z79.899 Other long term (current) drug therapy; Z95.5 Presence of coronary angioplasty implant and graft
CPT/HCPCS: 93005; 99291; 96360; 96361; 36415; 87040; 87086; 82962; 83605; 80307 ×3; 85025; 85610; 87088; 80053; 81001; 84484; 87186; 82803; 71045; 93010; J7030; J7040; A9270 ×2

== ENCOUNTER → 2019-08-02 | Outpatient (CLI) | payer MEDICARE, OTHER ==
--- NOTE | 2019-08-02 17:22 | RADIOLOGY REPORT (SQ) ---
EXAM DESCRIPTION: L SPINE W/FLEX/EXT COMPLETED DATE/TIME: 08/02/2019 12:02 pm REASON FOR STUDY: LUMBAR RADUCILOPATHY COMPARISON: 06/21/2018. NUMBER OF VIEWS: Seven views. TECHNIQUE: AP, lateral, obliques, flexion, extension, and sacral radiographic images acquired. LIMITATIONS: None. FINDINGS: MINERALIZATION: Normal. SEGMENTATION: Normal. No transitional anatomy. ALIGNMENT: Grade 1 anterolisthesis of L 3 on L4. FLEXION/EXTENSION: No instability. VERTEBRAE: Old compression fracture of L1. Otherwise intact. DISCS: Multilevel disc space narrowing with osteophytes. POSTERIOR ELEMENTS: Pedicles and facets are intact. Lower lumbar laminectomy. Facet arthropathy. N o pars defect or posterior arch defects. HARDWARE: None in the spine. PARASPINAL SOFT TISSUES: Normal. PELVIS: Intact as visualized. No fractures or worrisome bone lesions. SI joints intact. OTHER: No other significant finding. IMPRESSION: MULTILEVEL CHRONIC DEGENERATIVE CHANGES. OLD COMPRESSION FRACTURE OF L1. GRADE 1 ANTER OLISTHESIS OF L 3 ON L4. NO INSTABILITY ON FLEXION/EXTENSION. TECHNICAL DOCUMENTATION: JOB ID: [id number] [employer]- All Rights Reserved Reading location - IP/workstation name: [email or web address]
== END ==
LOC: RAD 11:30
PROVIDERS: ATTEND Specialist
DX: M51.16 Intervertebral disc disorders with radiculopathy, lumbar region (principal)
CPT/HCPCS: 72114

== ENCOUNTER → 2019-09-26 | Outpatient (CLI) | payer MEDICARE, OTHER ==
--- NOTE | 2019-09-26 23:00 | RADIOLOGY REPORT (SQ) ---
EXAM DESCRIPTION: MRI RT UPPER JOINT WITHOUT COMPLETED DATE/TIME: 09/26/2019 12:41 pm REASON FOR STUDY: M25.511 PAIN IN RIGHT SHOULDER M25.511 PAIN IN RIGHT SHOULDER COMPARISON: 2019 preoperative study. No further details provided. TECHNIQUE: Right shoulder images acquired and stored on PACS. Multiplanar imaging to include fat sen sitive sequences such as T1, water sensitive sequences such as FST2/STIR, cartilage sensitive sequenc es such as FSPD/gradient-echo sequences. LIMITATIONS: None. FINDINGS: BONE MARROW AND CORTEX: Artifact related to surgery. Suspect biceps tenodesis and cuff re pair. No occult fracture or worrisome lesion. JOINT OR BURSAL EFFUSION: Trace fluid. Minimal debris/ synovitis. GLENO-HUMERAL ARTICULATION: No focal chondral lesions. Mild osteophytes. Superior migration of the humeral head related to full-thickness cuff tear. ACROMION AND AC JOINT: AC arthropathy. Loss of the subacromial space with remodeling of the acromion . ROTATOR CUFF AND INTERVAL: Full-thickness full width cuff tear with retraction. Cuff ends difficult to see. Probable atrophy but difficult to further assess. LABRUM AND BICEPS LABRAL COMPLEX: Not well assessed. Presumably chronically torn with tenodesis as above. REMAINDER OF LABRUM AND IGHL : Suspect diffuse degenerative fraying. PERIARTICULAR AND ADJACENT SOFT TISSUES: Strain edema in the anterior deltoid. OTHER: No other significant finding. IMPRESSION: 1. Recurrent full-thickness cuff tear with retraction and probable atrophy. TECHNICAL DOCUMENTATION: JOB ID: [id number] 2010 [employer] All Rights Reserved Reading location - IP/workstation name: [email or web address]
== END ==
LOC: RAD 11:55
PROVIDERS: ATTEND Physician Assistant
DX: M75.121 Complete rotator cuff tear or rupture of right shoulder, not specified as traumatic (principal); M25.511 Pain in right shoulder

== ENCOUNTER 2020-02-10 17:35 | Emergency (ER) | payer MEDICARE, OTHER ==
[2020-02-10 18:26] LABS: ABSOLUTE EOSINOPHILS # (AUTO) 0.2 10^3/uL (0.0-0.6); ABSOLUTE LYMPHOCYTES (AUTO) 1.1 10^3/uL (0.5-4.7); ABSOLUTE MONOCYTES (AUTO) 0.6 10^3/uL (0.1-1.4); ABSOLUTE NEUT (AUTO) 2.7 10^3/uL (1.7-8.2); BASOPHILS % (AUTO) 0.6 % (0-2); EOSINOPHILS % (AUTO) 3.9 % (0-6); HEMATOCRIT 40.4 % (37.9-51.0); HEMOGLOBIN 14.1 g/dL (13.5-17.0); LYMPHOCYTES % (AUTO) 24.8 % (13-45); MEAN CORPUSCULAR HEMOGLOBIN 32.9 pg (27.0-33.4); MEAN CORPUSCULAR VOLUME 94 fl (80-97); MONOCYTES % (AUTO) 12.5 % (3-13); PLATELET COUNT 219 10^3/uL (150-450); RED BLOOD COUNT 4.28 10^6/uL (4.35-5.55); RED CELL DISTRIBUTION WIDTH 15.5 % (11.5-14.0); SEGMENTED NEUTROPHILS % (AUTO) 58.2 % (42-78); TOTAL CELLS COUNTED % (AUTO) 100 %; WHITE BLOOD COUNT 4.6 10^3/uL (4.0-10.5)
[2020-02-10 18:45] LABS: ALBUMIN 3.5 g/dL (3.5-5.0); ALCOHOL < 10 mg/dL (NONE DETECTED); ALKALINE PHOSPHATASE 97 U/L (38-126); ANION GAP 5 (5-19); ASPARTATE AMINO TRANSFERASE 22 U/L (17-59); BILIRUBIN,TOTAL 0.3 mg/dL (0.2-1.3); BLOOD UREA NITROGEN 12 mg/dL (7-20); CALCIUM 8.7 mg/dL (8.4-10.2); CARBON DIOXIDE 28 mmol/L (22-30); CHLORIDE 99 mmol/L (98-107); GLUCOSE 91 mg/dL (75-110); TOTAL PROTEIN 6.3 g/dL (6.3-8.2)
[2020-02-10 18:56] LABS: NT PRO BNP 361 pg/mL (<450)
[2020-02-10 18:57] LABS: TROPONIN I < 0.012 ng/mL
--- NOTE | 2020-02-10 18:57 | ER Document Report ---
ED General - General Chief Complaint: General Weakness Stated Complaint: WEAKNESS Time Seen by Provider: 02/10/20 17:59 Primary Care Provider: CYN THOMAS PA-C [Primary Care Provider] - Follow up as needed TRAVEL OUTSIDE OF THE [place] IN LAST 30 DAYS: No - HPI Notes: Chief complaint: Generalized weakness History of present illness: 74-year-old male with multiple chronic medical problems presents now complaining of generalized weakness over the last 3 to 5 days. He denies any focal weakness. States he has been eating and drinking normally. He denies fever chills. He has a chronic cough which is nonproductive. He denies chest pain. He denies abdominal pain. He has had chronic recurrent urinary tract infections and says that he was recently on an antibiotic prescribed by his primary care physician. He briefly had some diarrhea while he was initially taking the medication but this resolved and he is having normal stools now. He has a history of paroxysmal atrial fibrillation. He denies any chest pain. He denies any shortness of breath. He continues to smoke about 10 cigars/day. He has a past history of alcoholism and says that he stopped consuming any alcohol about 6 weeks ago. He denies any drug abuse. He also notes he has had some increased swelling and soreness of his left lower leg. He apparently saw a vascular specialist recently and I talked with him about eventual need for revascularization. - Related Data Allergies/Adverse Reactions: No Known Allergies Allergy (Verified 02/10/20 18:02) Past Medical History - General Information source: Patient, [facility] Records - Social History Smoking Status: Current Every Day Smoker Chew tobacco use (# tins/day): No Frequency of alcohol use: None Drug Abuse: None Lives with: Family Family History: Reviewed & Not Pertinent Patient has homicidal ideation: No - Past Medical History Cardiac Medical History: Reports: Hx Atrial Fibrillation, Hx Congestive Heart Failure, Hx Coronary Artery Disease, Hx Hypercholesterolemia, Hx Hypertension Denies: Hx Heart Attack Pulmonary Medical History: Denies: Hx Asthma, Hx Bronchitis, Hx COPD, Hx Pneumonia Neurological Medical History: Denies: Hx Cerebrovascular Accident, Hx Seizures Endocrine Medical History: Reports: Hx Diabetes Mellitus Type 2 Renal/ Medical History: Denies: Hx Peritoneal Dialysis GI Medical History: Denies: Hx Hepatitis, Hx Hiatal Hernia, Hx Ulcer Musculoskeletal Medical History: Reports Hx Arthritis Psychiatric Medical History: Reports: Hx Depression, Hx Post Traumatic Stress Disorder Infectious Medical History: Denies: Hx Hepatitis Past Surgical History: Reports: Hx Cardiac Catheterization - stents, Hx Coronary Stent, Hx Open Heart Surgery - STENT LATE , Hx Orthopedic Surgery. Denies: Hx Pacemaker - Immunizations Immunizations up to date: Yes Hx Diphtheria, Pertussis, Tetanus Vaccination: Yes Hx Pneumococcal Vaccination: 07/20/16 Review of Systems - Review of Systems Notes: Constitutional: Negative for fever. HENT: Negative for sore throat. Eyes: Negative for visual changes. Cardiovascular: Negative for chest pain. Respiratory: As per HPI. Gastrointestinal: As per HPI. Genitourinary: Negative for dysuria. Musculoskeletal: Negative for back pain. Skin: Negative for rash. Neurological: Negative for headaches, focal weakness or numbness. 10 point ROS negative except as marked above and in HPI. Physical Exam - Vital signs Vitals: Temp Resp BP Pulse Ox 98.8 F 19 136/71 H 99 02/10/20 17:44 02/10/20 17:44 02/10/20 17:44 02/10/20 17:44 - Notes Notes: GENERAL: Slender male approximately stated age appearing in no acute distress. SKIN: Good turgor no rashes. HEAD: Normocephalic atraumatic. EYES: PERRLA. EOMI. Conjunctivae and sclerae clear. EARS: CANALS AND TMS CLEAR. NOSE: CLEAR. MOUTH: Moist mucosa. Good dentition. No stridor or edema. No drooling. NECK: Supple. No masses or thyromegaly. No adenopathy. Carotids 2+ without bruits. No JVD. BACK: Symmetrical without tenderness. CHEST: Rattling cough. Respirations unlabored. Few scattered rhonchi bilaterally. HEART: Regular rhythm. No murmur gallop or rub. ABDOMEN: Soft nontender without masses, organomegaly or rebound. Bowel sounds normally active. No bruits. GENITALIA: Deferred. EXTREMITIES: 1+ edema left lower leg with mild left calf tenderness. No redness or warmth appreciated. Cap refill less than 1.5 seconds. Dorsalis pedis and posterior tibial pulses 1 + and symmetrical. NEUROLOGICAL: GCS 15. Alert and oriented x3. Fluent speech. Cranial nerves II through XII intact. Sensorimotor and cerebellar normal. Normal tone. PSYCHIATRIC: Appropriate affect. Course - Vital Signs Vital signs: Temp Pulse Resp BP Pulse Ox 98.8 F 17 124/75 98 02/10/20 18:02 02/10/20 18:01 02/10/20 18:01 02/10/20 18:01 - Laboratory Result Diagrams: 02/10/20 18:00 02/10/20 18:00 Laboratory results interpreted by me: 02/10/20 02/10/20 18:00 18:00 RBC 4.28 L RDW 15.5 H Sodium 132.3 L - EKG Interpretation by Me Additional EKG results interpreted by me: 02/10/20 21:40 Twelve-lead EKG from 1834 hrs. is reviewed contemporaneously by me a demonstrating a normal sinus rhythm with a rate of 72 and a QRS axis of +30 degrees. DE and QRS intervals are normal. QTc is prolonged at 522 ms. There are some nonspecific T wave abnormalities in the anterolateral leads. The tracing is compared to previous study of 07/26/2019 and is similar in appearance. Indication for current study: Generalized weakness. Discharge - Discharge Clinical Impression: Generalized weakness COPD (chronic obstructive pulmonary disease) Qualifiers: COPD type: unspecified COPD Qualified Code(s): J44.9 - Chronic obstructive pulmonary disease, unspecified Condition: Stable Disposition: HOME, SELF-CARE Forms: Smoking Cessation Education Referrals: CYN THOMAS PA-C [Primary Care Provider] - Follow up as needed
--- NOTE | 2020-02-10 19:03 | RADIOLOGY REPORT (SQ) ---
EXAM DESCRIPTION: CHEST SINGLE VIEW IMAGES COMPLETED DATE/TIME: 02/10/2020 5:45 pm REASON FOR STUDY: cough COMPARISON: 07/26/2019 EXAM PARAMETERS: NUMBER OF VIEWS: One view. TECHNIQUE: Single frontal radiographic view of the chest acquired. RADIATION DOSE: NA LIMITATIONS: None. FINDINGS: LUNGS AND PLEURA: Lungs are hyperinflated. No focal consolidation or pleural effusion. N o pneumothorax. MEDIASTINUM AND HILAR STRUCTURES: No masses. Contour normal. HEART AND VASCULAR STRUCTURES: Heart normal in size. Normal vasculature. BONES: No acute findings. HARDWARE: None in the chest. OTHER: No other significant finding. IMPRESSION: NO ACUTE RADIOGRAPHIC FINDING IN THE CHEST. TECHNICAL DOCUMENTATION: JOB ID: [id number] 2010 [employer]- All Rights Reserved Reading location - IP/workstation name: [email or web address]
[2020-02-10 19:27] LABS: APPEARANCE,URINE CLEAR; BILIRUBIN,URINE NEGATIVE (NEGATIVE); COLOR,URINE YELLOW; GLUCOSE, URINE NEGATIVE (NEGATIVE); KETONES,URINE NEGATIVE (NEGATIVE); PROTEIN,URINE NEGATIVE (NEGATIVE); UROBILINOGEN,URINE NEGATIVE mg/dL (<2.0)
--- NOTE | 2020-02-10 20:12 | RADIOLOGY REPORT (SQ) ---
Ultrasound left lower extremity venous duplex exam on 02/10/2020 at 7:19 PM CLINICAL INDICATION: Left calf pain and swelling COMPARISON: None FINDINGS: Multiple sonographic images are obtained in the right groin and from the left groin through the left calf vessels. Color flow, compression and spectral analysis are all performed. There is complete compressibility of the veins of the lower extremity. Good color flow is identified within the veins of the lower extremity. IMPRESSION: No evidence of deep venous thrombus.
[2020-02-10 22:51] VITALS: BP 146/77
--- NOTE | 2020-02-11 10:27 | EKG REPORT ---
SEVERITY:- ABNORMAL ECG - SINUS RHYTHM BORDERLINE T ABNORMALITIES, ANT-LAT LEADS PROLONGED QT INTERVAL : Confirmed by: Khang Velásquez 11-Feb-2020 10:26:30
== END 2020-02-10 22:55 | disposition home or self-care (01) ==
LOC: ER 17:35
DX: R53.1 Weakness (principal); J44.9 Chronic obstructive pulmonary disease, unspecified; R60.0 Localized edema; R05 Cough; R09.89 Other specified symptoms and signs involving the circulatory and respiratory systems; F17.290 Nicotine dependence, other tobacco product, uncomplicated; I25.10 Atherosclerotic heart disease of native coronary artery without angina pectoris; I10 Essential (primary) hypertension; E11.9 Type 2 diabetes mellitus without complications; Z87.440 Personal history of urinary (tract) infections; Z95.5 Presence of coronary angioplasty implant and graft
CPT/HCPCS: 36415; 71045; 80053; 80307; 81001; 83690; 83735; 83880; 84484; 85025; 93005; 93010; 93971; 99285

== ENCOUNTER → 2020-08-16 | Outpatient (CLI) | payer MEDICARE, OTHER ==
--- NOTE | 2020-08-16 09:39 | WOMENS IMAGING REPORT ---
EXAM DESCRIPTION: U/S BREAST UNILAT LIMITED IMAGES COMPLETED DATE/TIME: 08/16/2020 8:04 am REASON FOR STUDY: N61.22 N61.22 GRANULOMATOUS MASTITIS, LEFT BREAST COMPARISON: None. TECHNIQUE: Real-time and static grayscale imaging performed of the left breast targeted to the area of clinical/mammographic concern. Selected color Doppler images recorded. LIMITATIONS: None. FINDINGS: MASS: The patient's palpable abnormality correlates to ill-defined hypoechoic retroareolar tissue, consistent with gynecomastia. OTHER: Additional imaging was performed of the right retroareolar soft tissues, revealing similar, al beit less pronounced, findings. IMPRESSION: Asymmetric (left greater than right) gynecomastia. BIRAD: Negative. RECOMMENDATION: RECOMMENDED FOLLOW-UP: Follow-up as clinically indicated. COMMENT: The [employer] ([employer]) has developed recommendations for screening MRI of the breasts in certain patient populations, to be used in conjunction with mammography. Breast MRI s urveillance may be appropriate for women with more than 20% lifetime risk of developing breast cancer as determined by genetic testing, significant family history of the disease, or history of mantle r adiation for Hodgkins Disease. ACR Practice Guidelines 2008. TECHNICAL DOCUMENTATION: JOB ID: [id number] 2010 [employer]- All Rights Reserved Reading location - IP/workstation name: [email or web address]
== END ==
LOC: WI 07:46
PROVIDERS: ATTEND Physician Assistant Medical
DX: N61.22 Granulomatous mastitis, left breast (principal)
CPT/HCPCS: 76642